=== PATIENT | male | born 1955 | race Caucasian/White ===

== ENCOUNTER 2024-03-06 09:52 | Inpatient (IN) | payer MEDICARE, SELFPAY ==
[2024-03-06] VITALS (9 sets, daily range): BP systolic 100–130; BP diastolic 48–64; PULSE 66–79; RESP 14–18; TEMP 36.3–37; O2SAT 97–100; BMI 20.6; BMI 20.2
--- NOTE | 2024-03-06 10:19 | EKG12_ITS ---
Test Reason : GENERAL Blood Pressure : / mmHG Vent. Rate : 068 BPM Atrial Rate : 068 BPM P-R Int : 160 ms QRS Dur : 102 ms QT Int : 416 ms P-R-T Axes : -15 029 025 degrees QTc Int : 442 ms Normal sinus rhythm Minimal voltage criteria for LVH, may be normal variant ( Sokolow-Parikh ) Nonspecific T wave abnormality Abnormal ECG Confirmed by ROMINA KIRK, KRISTIN ([id number]), video news editor GINNA OILVO ([id number]) on 03/08/2024 8:28:18 AM Referred By: Confirmed By:KRISTIN VANEGAS MD
--- NOTE | 2024-03-06 10:41 | EDS_ITS ---
HPI History of Present Illness Chief Complaint: Wound Narrative Narrative: Patient is a 68-year-old male with a past medical history of chronic left toe wound follows with Dr. Anderson who presents to the emergency department with a chief complaint of needing further evaluation management. According to patient's family at bedside they noted that they just recently saw Dr. Anderson in the office and was told to come to the emergency department on Thursday and contact him. They did note that he is on 2 antibiotics doxycycline and they believe cefdinir however cannot exactly remember the name of the second antibiotic. Patient denies any fevers or any other symptoms. They note that he is supposed to have toe removal coming up in the near future. PFSH PFS Home Medications ?Medication ?Instructions ?Recorded ?Last Taken ?Type amlodipine 10 mg tablet 10 mg PO DAILY 03/02/24 03/06/24 History atorvastatin 40 mg tablet 40 mg PO DAILY 03/02/24 03/06/24 History carvedilol 12.5 mg tablet 12.5 mg PO BID 03/02/24 Unknown History cefdinir 300 mg capsule 300 mg PO BID 03/02/24 Unknown History citalopram 10 mg tablet 10 mg PO DAILY 03/02/24 Unknown History clopidogrel 75 mg tablet 75 mg PO DAILY 03/02/24 Unknown History doxycycline hyclate 100 mg tablet 100 mg PO BID 03/02/24 Unknown History ezetimibe 10 mg tablet 10 mg PO DAILY 03/02/24 Unknown History folic acid 1 mg tablet 1 mg PO DAILY 03/02/24 Unknown History hydrochlorothiazide 25 mg tablet 25 mg PO DAILY 03/02/24 Unknown History hydrocodone-acetaminophen 5-325mg 1 tab PO Q12H PRN pain 03/02/24 Unknown History 5mg-325mg sacubitril 24 mg-valsartan 26 mg 1 tab PO BID 03/02/24 Unknown History tablet (Entresto) aspirin 81 mg chewable tablet 1 tab PO DAILY 03/06/24 Unknown History Allergy/AdvReac Type Severity Reaction Status Date / Time No Known Allergies Allergy Verified 03/06/24 09:54 Social History Smoking Status: Light Smoker (<10/day) ROS ROS ED ROS Narrative Constitutional: Denies fevers, chills, headaches, [employer] committees Ears nose and throat: Denies change with double vision blurry vision Cardiovascular: Denies chest pain or palpitations Respiratory: Denies any coughing wheezing shortness of breath Abdomen: Denies nausea vomit diarrhea Extremities: Complains of chronic toe wound as noted above Neurological: Denies any new numbness, weakness, tingling Skin: Complains of chronic wound as noted above EXAM Physical Exam Narrative Exam Narrative: General: Patient lying in bed resting comfortably did not appear to be in acute distress Head: Atraumatic, normocephalic Ears nose and throat: Pupils equal round reactive to light bilaterally, extraocular muscles intact bilaterally, no conjunctival injection noted Cardiovascular: Regular rate and rhythm no murmurs gallops rubs noted Respiratory: Clear to auscultation bilaterally Extremities: DP pulses +2/4 in the bilateral lower extremities, no pedal edema on exam Neurological: Patient following commands knew that he was at [facility] day is 2023 skin: Patient has chronic appearing left great toe wound no active drainage from the wound itself Const Vital Signs: 03/06/24 09:53 03/06/24 10:19 03/06/24 11:21 Temperature 97.3 F L 97.8 F Temperature Source Temporal Temporal Pulse Rate 79 66 Respiratory Rate 14 18 Blood Pressure 100/56 L 129/59 H Blood Pressure Mean 70 82 Pulse Ox 100 98 Oxygen Delivery Method Room Air Room Air Room Air 03/06/24 12:09 03/06/24 14:00 Temperature 97.8 F Temperature Source Temporal Pulse Rate 68 67 Respiratory Rate 18 18 Blood Pressure 120/49 L 125/56 H Blood Pressure Mean 72 79 Pulse Ox 98 98 Oxygen Delivery Method Room Air Room Air MDM MDM MDM Narrative Medical decision making narrative: Patient is a 68-year-old male who presents to the emergency department with chief complaint of evaluation for left great toe wound. Patient will have workup formed here and then Dr. Anderson will be contacted. Patient be given IV fluids for hydration. Patient CBC reviewed and showed no evidence of leukocytosis white blood count normal at 6.7, hemoglobin was 9.6, platelet count normal at 321. Patient's INR normal, PT normal at 13.6, sodium was 137, potassium was 3.3, creatinine was 0.76. Patient's lactic acid normal at 1.9, AST and ALT were 12 and 19 respectively. Patient's x-ray of his foot reviewed and showed soft tissue pro minence of the great toe no acute bone or joint abnormality. Patient's EKG reviewed showed sinus rhythm with a rate of 68 bpm most. Previous EKG and is largely unchanged. Did discuss case with on-call supervisor aircraft cleaning Dr. Carroll who is recommending giving multiple medical comorbidities discussion with the hospitalist which was done in December and they themselves and had further discussion. I did clarify with the patient and at bedside in regards to Dr. Braden. She states that he had a procedure done approximately [address] Braden and she states that she called their office and notified them of Dr. Artis's plan for amputation and they said that they were okay with this plan according to the at bedside. Then discussed the case with Dr. Carroll again states that he will accept patient for admission. He is requesting deep wound culture with MRSA be added on which was done. Patient was given vancomycin and Rocephin. Patient was notified that he will be admitted to the hospital for evaluation management he is agreeable to plan all question concerns answered. Lab Data Labs: Laboratory Results - last 24 hr 03/06/24 10:35 WBC 6.7 RBC 3.64 L Hgb 9.6 L Hct 30.4 L MCV 83.5 MCH 26.4 L MCHC 31.6 L RDW Std Deviation 54.3 H RDW Coeff of Judie 17.9 H Plt Count 321 MPV 9.2 Immature Gran % (Auto) 0.300 Neut % (Auto) 63.9 Lymph % (Auto) 22.5 [place] % (Auto) 8.8 Eos % (Auto) 4.2 Baso % (Auto) 0.3 Absolute Neuts (auto) 4.3 Absolute Lymphs (auto) 1.50 Nucleated RBC % 0 PT 13.6 INR 1.0 APTT 27.0 Sodium 137 Potassium 3.3 L Chloride 103 Carbon Dioxide 28.0 Anion Gap 6 BUN 13 Creatinine 0.76 Est GFR (MDRD) Af Amer 131 Est GFR (MDRD) Non-Af 108 BUN/Creatinine Ratio 17.0 Glucose 118 H Lactic Acid 1.9 Calcium 9.3 Total Bilirubin 0.30 AST 12 L ALT 19 Alkaline Phosphatase 94 Total Protein 6.9 Albumin 3.3 Globulin 3.6 Albumin/Globulin Ratio 0.9 Radiography Diagnostic Testing: Clinical Impression(s) from Imaging Studies Foot X-Ray 03/06/24 11:00 IMPRESSION: Soft tissue prominence of the great toe. No acute bone or joint abnormality. Electronically Signed: Niall Campuzano MD at 11:28 EDT , Discharge Plan Triage Chief Complaint: Wound ED Provider: Jose Johnson Dx/Rx/DC Orders Clinical Impression: Infection of great toe Prescriptions: No Action atorvastatin 40 mg tablet 40 mg PO DAILY carvedilol 12.5 mg tablet 12.5 mg PO BID citalopram 10 mg tablet 10 mg PO DAILY hydrocodone-acetaminophen 5-325 mg tablet 1 tab PO Q12H PRN (Reason: pain) clopidogrel 75 mg tablet 75 mg PO DAILY amlodipine 10 mg tablet 10 mg PO DAILY folic acid 1 mg tablet 1 mg PO DAILY hydrochlorothiazide 25 mg tablet 25 mg PO DAILY cefdinir 300 mg capsule 300 mg PO BID doxycycline hyclate 100 mg tablet 100 mg PO BID ezetimibe 10 mg tablet 10 mg PO DAILY Entresto 24-26 mg tablet 1 tab PO BID aspirin 81 mg tablet,chewable 1 tab PO DAILY Primary Care Provider: Bridgette Gomes NP Referrals: Bridgette Gomes NP, PHARMACY PICKING TECH-C [Primary Care Provider] - Print Language: Micronesian Disposition Disposition: Acute Care Hospital
[2024-03-06] MEDS: 0.9% Normal Saline (1000mL) 1,000 ML 999 ML IV (10:45)
[2024-03-06 10:46] LABS: Absolute Neutrophil Count 4.3 X10^3/uL (2.0-7.7); Basophil# 0.02 X10^3/uL; Basophil% 0.3 % (0-1); Eosinophil# 0.28 X10^3/uL; Eosinophils% 4.2 % (0-5); Hematocrit 30.4 % (40-54); Hemoglobin 9.6 g/dL (13.0-16.5); Lymphocyte % 22.5 % (19-41); Mean Corp Hgb Conc 31.6 g/dL (32-36); Mean Corpuscular Hgb 26.4 pg (27.0-32.0); Mean Corpuscular Volume 83.5 fL (80-94); Mean Platelet Vol. 9.2 fl (6.2-12.0); Monocyte# 0.59 X10^3/uL; Monocyte% 8.8 % (0-10); NRBC Flagged by Analyzer 0 % (0-5); Neutrophil # 4.27 X10^3/uL (2.7-7.7); Neutrophil % 63.9 % (47-70); Platelet Count 321 K/mm3 (150-450); RBC Distribution Width CV 17.9 % (11.6-14.6); RBC Distribution Width SD 54.3 fl (35.1-43.9); Red Blood Count 3.64 M/mm3 (4.6-6.2); White Blood Count 6.7 K/mm3 (4.4-11.0)
[2024-03-06 10:58] LABS: Prothrombin Time (Protime)PT. 13.6 SECONDS (11.7-14.9)
--- NOTE | 2024-03-06 11:00 | RAD_ITS ---
EXAM: XR LEFT FOOT COMPLETE, 3 OR MORE VIEWS CLINICAL INDICATION: great toe wound TECHNIQUE: Frontal, lateral and oblique views of the left foot. COMPARISON: No relevant prior studies available. FINDINGS: BONES/JOINTS: No acute fracture or subluxation. Mild narrowing of the interphalangeal joint of the great toe. SOFT TISSUES: Soft tissue prominence of the great toe. No soft tissue gas. No radiopaque foreign body. RAD/Foot min 3 Views IMPRESSION: Soft tissue prominence of the great toe. No acute bone or joint abnormality. Electronically Signed: Niall Campuzano MD at 11:28 EDT ,
[2024-03-06 11:01] LABS: ALB/GLOB Ratio 0.9 RATIO (0.9-2.4); AST(SGOT) 12 U/L (15-37); Alanine Aminotransfer ALT/SGPT 19 U/L (16-61); Albumin, Serum 3.3 g/dL (3.2-5.0); Alkaline Phosphatase 94 U/L (45-117); Anion Gap 6 (5-15); BUN 13 mg/dL (7-18); Calcium,Total 9.3 mg/dL (8.5-10.1); Chloride 103 mmol/L (98-107); Creatinine, Serum 0.76 mg/dL (0.70-1.30); EST Glomerular Filtration Rate 108 mL/min (>60); Est Glom Filt Rate - Afr Amer 131 mL/min (>60); Globulin 3.6 g/dL (2.2-4.2); Glucose 118 mg/dL (74-106); Potassium 3.3 mmol/L (3.5-5.1); Protein, Total 6.9 g/dL (6.4-8.2); Sodium Level 137 mmol/L (136-145)
[2024-03-06 11:17] LABS: Lactic Acid 1.9 mmol/L (0.4-1.9)
[2024-03-06] MEDS: Ceftriaxone 1 GM/50 ML BAG IV (14:43)
[2024-03-06 14:51] LABS: CRP 7.88 mg/L (0.0-3.0)
[2024-03-06 15:11] LABS: Erythrocyte Sedimentation Rate 15 mm/hr (0-20)
--- NOTE | 2024-03-06 15:30 | PCM.PN.HOSP ---
Reason for Visit Reason for Visit: Left foot wound Subjective Subjective Mr. 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 Anderson. He most recently saw Dr. Anderson on 03/02/2024 for a full-thickness ulceration of the left great toe and left leg. He had recent vascular intervention by Dr. Braden (vascular surgeon) in [place] who performed intervention of the left lower extremity and unfortunately was found to have a wound dehiscence to the proximal calf area of the left lower extremity. He had been on oral antibiotics with cephalexin and doxycycline and has been doing dressing changes at home but indicated he had persistent malodor that has been progressively getting worse related to the wound. He was seen at the wound care center by Dr. Anderson on the at which time debridement was performed. Cultures were taken at that time and sent to microbiology for identification and sensitivity and he was maintained on his oral antibiotics that he been started on previously. At that time, Dr. Anderson, had a long discussion with the patient with regards to the severity infection and they recommended admission to the hospital for optimization of the left lower extremity. The patient was going to reach out to Dr. Braden for any recommendations to see if Dr. Braden would prefer him to be seen at [place] or admission to the [place] emergency department. The patient subsequently presented to the emergency department [facility] for admission. Dr. Carroll is on-call for podiatry and we discussed the case and we have been consulted for medical management. Surgical intervention is likely. Patient admits to vascular intervention on right leg 2 months ago and his left leg about 5 weeks ago. Had wound dehiscence but no further vascular intervention required at this time per discussion with patient. He also admits to having an aortic valve replacement with a bioprosthetic valve done at [place] as well within the last year and he also suffered from a stroke last March which has resulted in some left visual field deficits. At this time he is denying any significant pain. We are trying to get records from [facility] with regards to his previous medical history and surgical history. Patient does admit to some intermittent smoking still but does not smoke on a daily basis. He denies any alcohol or other substance use. Objective Data Objective Data Vital Signs: Vital Signs Temp Pulse Resp BP Pulse Ox O2 Del Method 97.9 F 75 16 120/50 L 97 Room Air 03/06/24 14:49 03/06/24 14:49 03/06/24 14:49 03/06/24 14:49 03/06/24 14:49 03/06/24 14:00 Oxygen Delivery Method Room Air Weight: 71 kg Body Mass Index (BMI) 20.6 Intake & Output: Intake and Output for Last 24 Hours 03/04/24 03/05/24 03/06/24 23:59 23:59 23:59 Intake Total 1000 / 1000 Balance 1000 / 1000 Lab / Micro Data 03/06/24 10:35 03/06/24 10:35 Labs: Laboratory Results - last 24 hr 03/06/24 10:35: WBC 6.7, RBC 3.64 L, Hgb 9.6 L, Hct 30.4 L, MCV 83.5, MCH 26.4 L, MCHC 31.6 L, RDW Std Deviation 54.3 H, RDW Coeff of Judie 17.9 H, Plt Count 321, MPV 9.2, Immature Gran % (Auto) 0.300, Neut % (Auto) 63.9, Lymph % (Auto) 22.5, Lincoln % (Auto) 8.8, Eos % (Auto) 4.2, Baso % (Auto) 0.3, Absolute Neuts (auto) 4.3, Absolute Lymphs (auto) 1.50, Nucleated RBC % 0, ESR 15, PT 13.6, INR 1.0, APTT 27.0, Sodium 137, Potassium 3.3 L, Chloride 103, Carbon Dioxide 28.0, Anion Gap 6, BUN 13, Creatinine 0.76, Est GFR (MDRD) Af Amer 131, Est GFR (MDRD) Non-Af 108, BUN/Creatinine Ratio 17.0, Glucose 118 H, Lactic Acid 1.9, Calcium 9.3, Total Bilirubin 0.30, AST 12 L, ALT 19, Alkaline Phosphatase 94, C-React Prot Ext Range 7.88 H, Total Protein 6.9, Albumin 3.3, Globulin 3.6, Albumin/Globulin Ratio 0.9 Radiography Diagnostic Testing: Radiology Impression Foot X-Ray 03/06/24 11:00 IMPRESSION: Soft tissue prominence of the great toe. No acute bone or joint abnormality. Electronically Signed: Niall Campuzano MD at 11:28 EDT Reading Location ID and State: [facility] / [place] Tel , Service support , Physical Exam Const alert, oriented x3 and no apparent distress Constitutional Narrative: Upper middle-aged, white male, sitting up in bed watching television, nursing at bedside, patient appears comfortable, does not appear toxic, appears older than stated age HEENT head/scalp atraumatic and moist oral mucous membranes HEENT Narrative: Upper edentulous, lower dentition is poor, Mallampati is 2, no thrush Head and Scalp: normocephalic Eyes PERRL and EOMs intact bilaterally Eyes Narrative: No scleral icterus, conjunctiva are mildly pale bilaterally Neck no lymphadenopathy, supple and no JVD Neck Narrative: Incisions from previous carotid endarterectomy [id number], trachea midline, no thyroid enlargement Resp normal respiratory effort, no retractions, no use of accessory muscles and No clear to auscultation bilaterally Resp Narrative: Diffusely diminished with few scattered end expiratory wheezes Auscultation: wheezes; Negative for rales or rhonchi Cardio regular rate, regular rhythm, S1 normal heart sound, S2 normal heart sound, no rub, no gallops and no clicks; Negative for no murmurs Cardio Narrative: 3 out of 6 systolic murmur loudest at left upper sternal border GI normal to inspection, nondistended, normoactive bowel sounds, soft to palpation and non-tender Extremity Extremity Narrative: Right lower extremity previous amputation noted, left lower extremity with dressing in place was recently placed in the emergency department prior to admission Neuro oriented x3, moves all extremities, no focal motor deficits and no sensory deficits noted Speech: speech normal Psych affect normal Psych Narrative: Pleasant, eye contact is good, patient interacts appropriately Assessment & Plan Assessment/Plan (1) Infection of great toe: (2) Acute osteomyelitis of left foot: (3) Other specified peripheral vascular diseases: (4) Hypokalemia: PLAN: Plan Left foot infection with concern for osteomyelitis -X-ray shows soft tissue prominence of the great toe -Cultures from 03/02/2024 showed Pseudomonas and Enterococcus faecalis -Given these culture findings would use Zosyn and vancomycin for now -ESR is only 15 and CRP was only 7.8 -Management per primary service -Wound care consultation -Infectious disease consultation -EKG done in the emergency department that shows no acute abnormalities with request for previous EKG pending as well as previous cardiac evaluation -I would imagine the patient has had cardiac catheterization with recent valve replacement -Records have been requested [place] -Chest x-ray without any acute findings Hypokalemia -Potassium of 3.3 at the time of admission -40 mEq p.o. potassium given -Repeat in a.m. -Check a.m. magnesium level Peripheral vascular disease -Follows with Dr. Braden in [place] -Recent left lower extremity intervention with no ongoing plans for any further intervention -Previous right lower extremity intervention -Continue aspirin and Plavix--> okay with podiatry -Recommend ongoing outpatient follow-up with Dr. Braden after discharge Valvular replacement -Patient thinks it is his aortic valve that was replaced with bioprosthetic valve -Records have been requested -Unsure if patient has any coronary disease however he does appear to be a vasculopath so I would doubt that he may have some coronary disease -Most likely had cardiac catheterization prior to his valve replacement Hypertension -Continue home amlodipine -Continue home carvedilol -Continue home hydrochlorothiazide -Continue home Entresto Suspect history of heart failure -Based on medications I do suspect he has a history of heart failure -Awaiting data from [place] Hyperlipidemia -Continue home Zetia -Continue home statin Suspected COPD -No formal diagnosis documented and patient unaware of diagnosis however patient has long history of tobacco abuse and intermittent wheezing on exam -As needed albuterol is available -Would recommend outpatient follow-up with pulmonary medicine or outpatient PFTs after discharge Tobacco abuse -Patient admits that he still intermittently smokes however not on a daily basis -Denies any need for any nicotine replacement therapy at this time DVT prophylaxis -Subcu Lovenox 40 daily CODE STATUS -Full code as verified at the time of evaluation Charges/Coding Visit Charges Inpatient E&M: 33243 Subs Hosp L2
[2024-03-06] MEDS: 0.9% Normal Saline (250mL Bag) 250 ML 15 ML IV ×2 (15:50→16:15)
[2024-03-06] MEDS: Piperacil/Tazobactam 3.375 GM in 0.9% Normal Saline (50mL MB+) 50 ML IV ×2 (15:59→22:03)
[2024-03-06] MEDS: 0.9% Saline Lock 10 ML Syringe IV ×3 (16:00→22:01)
[2024-03-06] MEDS: Vancomycin HCl 1,750 MG in 0.9% Normal Saline (500mL Bag) 500 ML 250 MG IV (16:15)
[2024-03-06] MEDS: Potassium Chloride Oral Tablet 20 MEQ 40 MEQ PO (16:40)
[2024-03-06] MEDS: Carvedilol 12.5 MG Tablet PO (16:41)
--- NOTE | 2024-03-06 16:44 | PCM.RX.CS ---
Consult Antibiotic Management Pharmacy has been consulted to manage selected antibiotic: Vancomycin Type of Intervention Type of Consult: New start Suspected Infection Suspected Infection: Osteomyelitis Labs Labs: Sodium 137 mmol/L (136-145) 03/06/24 10:35 Potassium 3.3 mmol/L (3.5-5.1) L 03/06/24 10:35 Chloride 103 mmol/L (98-107) 03/06/24 10:35 Carbon Dioxide 28.0 mmol/L (21.0-32.0) 03/06/24 10:35 Anion Gap 6 (5-15) 03/06/24 10:35 BUN 13 mg/dL (7-18) 03/06/24 10:35 Creatinine 0.76 mg/dL (0.70-1.30) 03/06/24 10:35 Est GFR (MDRD) Af Amer 131 mL/min (>60) 03/06/24 10:35 Est GFR (MDRD) Non-Af 108 mL/min (>60) 03/06/24 10:35 BUN/Creatinine Ratio 17.0 RATIO (-20) 03/06/24 10:35 Glucose 118 mg/dL (74-106) H 03/06/24 10:35 Pharmacy Plan for Drug Dosing Pharmacy Plan for Drug Dosing: NEW START IV VANCOMYCIN Consulting Physician: Carly Indication: Osteomyelitis Goal Trough: 15-20 mg/dL SrCr: 0.76 mg/dL (03/06) CrCl: 93.9 mL/min Comments: ER dose of 1000mg ordered initially. Loading dose ordered for admission. ER dose had not been given so change to loading dose of 1750mg given 03/06 @ 1615 Vancomycin Dose: Will start 1250mg Q12 (03/07 @ 0400) and get a level prior to the 4th dose per policy. Pending Level: 03/08/24 @ 0330 Pharmacy Service will continue to monitor and adjust dosing as required.
[2024-03-06 18:29] LABS: Hemoglobin A1c 5.4 % (3.8-5.6)
--- NOTE | 2024-03-06 20:43 | PCM.HP.STD ---
HPI - General General Date of Admission: 03/06/24 Chief Complaint: Left foot wound and left leg wound, bone infection HPI Narrative LATRICE CLIFTON, is a 68 M who presents with chronic PAD with chronic left 1st toe wound and dehised left leg wound. Patient has bone exposed left 1st toe, says it is not healing and has been overall worsening, he also has revasc by Dr. Braden 5 weeks ago and leg incision opened up. He relates his and daughter have been packing it daily at home. He presented to the ER today. He was admitted for further management. [facility] Medical History (Updated 03/06/24 @ 20:[address] Greg Carroll, DP) Anemia Restless legs Vision loss of left eye Smoker Asthma Hypertension Stroke/cerebrovascular accident Home Medications ?Medication ?Instructions ?Recorded ?Last Taken ?Type amlodipine 10 mg tablet 10 mg PO DAILY blood pressure 03/02/24 03/06/24 08:00 History atorvastatin 40 mg tablet 40 mg PO DAILY 03/02/24 03/06/24 History carvedilol 12.5 mg tablet 12.5 mg PO BID blood pressure 03/02/24 03/06/24 08:00 History cefdinir 300 mg capsule 300 mg PO BID antibiotic 03/02/24 03/06/24 08:00 History citalopram 10 mg tablet 10 mg PO DAILY depression 03/02/24 03/06/24 08:00 History clopidogrel 75 mg tablet 75 mg PO DAILY blood thinner 03/02/24 03/06/24 08:00 History doxycycline hyclate 100 mg tablet 100 mg PO BID antibiotic 03/02/24 03/06/24 08:00 History ezetimibe 10 mg tablet 10 mg PO DAILY cholesterol 03/02/24 03/05/24 08:00 History folic acid 1 mg tablet 1 mg PO DAILY vitamin 03/02/24 03/06/24 08:00 History hydrochlorothiazide 25 mg tablet 25 mg PO DAILY blood pressure 03/02/24 03/05/24 08:00 History hydrocodone-acetaminophen 5-325mg 1 tab PO Q12H PRN pain 03/02/24 03/05/24 22:01 History 5mg-325mg sacubitril 24 mg-valsartan 26 mg 1 tab PO BID blood pressure 03/02/24 03/06/24 08:00 History tablet (Entresto) aspirin 81 mg chewable tablet 1 tab PO DAILY blood thinner 03/06/24 03/06/24 08:00 History Allergy/AdvReac Type Severity Reaction Status Date / Time No Known Allergies Allergy Verified 03/06/24 09:54 Surgical History (Updated 03/06/24 @ 17:[address] Radha Powell, DO) H/O carotid endarterectomy Status post cardiac surgery Social History Smoking Status: Light Smoker (<10/day) Vital Signs Vital Signs Vital Signs: 03/06/24 09:53 03/06/24 10:19 03/06/24 11:21 Temperature 97.3 F L 97.8 F Temperature Source Temporal Temporal Pulse Rate 79 66 Respiratory Rate 14 18 Respiratory Effort Respiratory Depth Respiratory Pattern Blood Pressure 100/56 L 129/59 H Blood Pressure Mean 70 82 Blood Pressure Source Blood Pressure Position Blood Pressure Location Pulse Ox 100 98 Oxygen Delivery Method Room Air Room Air Room Air 03/06/24 12:09 03/06/24 14:00 03/06/24 14:49 Temperature 97.8 F 97.9 F Temperature Source Temporal Pulse Rate 68 67 75 Respiratory Rate 18 18 16 Respiratory Effort Respiratory Depth Respiratory Pattern Blood Pressure 120/49 L 125/56 H 120/50 L Blood Pressure Mean 72 79 73 Blood Pressure Source Blood Pressure Position Blood Pressure Location Pulse Ox 98 98 97 Oxygen Delivery Method Room Air Room Air 03/06/24 15:12 03/06/24 15:35 Temperature 98.2 F Temperature Source Oral Pulse Rate 70 70 Respiratory Rate 18 16 Respiratory Effort Normal Respiratory Depth Normal Respiratory Pattern Normal Blood Pressure 121/48 H Blood Pressure Mean 72 Blood Pressure Source Monitor Blood Pressure Position Semi-Fowlers Blood Pressure Location Left Arm Pulse Ox 99 99 Oxygen Delivery Method Room Air Room Air Weight Weight: 69.4 kg Body Mass Index (BMI) 20.2 Physical Exam Const alert, oriented x3 and no apparent distress Constitutional Narrative: Chronic ulcer dorsal left 1st toe down to exposed bone - bone is necrotic, it is dry and stable in appearance, left leg ulceration down to fascia and muscle with some nonviable and also some granular tissue - there is no cellulitis, no maloder, no crepitus, no fluctuance, no visible abscess. Chronic PAD, no evidence of acute ischemia bilateral foot. Right 4th toe is absent and healed. He relates to POP to ulcer sites c/w normal findings. No evidence of DVT bilateral. Results Lab / Micro Data 03/06/24 10:35 03/06/24 10:35 Labs: Laboratory Results - last 24 hr 03/06/24 10:35: WBC 6.7, RBC 3.64 L, Hgb 9.6 L, Hct 30.4 L, MCV 83.5, MCH 26.4 L, MCHC 31.6 L, RDW Std Deviation 54.3 H, RDW Coeff of Judie 17.9 H, Plt Count 321, MPV 9.2, Immature Gran % (Auto) 0.300, Neut % (Auto) 63.9, Lymph % (Auto) 22.5, Bartholomew % (Auto) 8.8, Eos % (Auto) 4.2, Baso % (Auto) 0.3, Absolute Neuts (auto) 4.3, Absolute Lymphs (auto) 1.50, Nucleated RBC % 0, ESR 15, PT 13.6, INR 1.0, APTT 27.0, Sodium 137, Potassium 3.3 L, Chloride 103, Carbon Dioxide 28.0, Anion Gap 6, BUN 13, Creatinine 0.76, Est GFR (MDRD) Af Amer 131, Est GFR (MDRD) Non-Af 108, BUN/Creatinine Ratio 17.0, Glucose 118 H, Hemoglobin A1c 5.4, Lactic Acid 1.9, Calcium 9.3, Total Bilirubin 0.30, AST 12 L, ALT 19, Alkaline Phosphatase 94, C-React Prot Ext Range 7.88 H, Total Protein 6.9, Albumin 3.3, Globulin 3.6, Albumin/Globulin Ratio 0.9 Imaging Radiology Impression Foot X-Ray 03/06/24 11:00 IMPRESSION: Soft tissue prominence of the great toe. No acute bone or joint abnormality. Electronically Signed: Niall Campuzano MD at 11:28 EDT , Assessment & Plan Assessment/Plan (1) Other specified peripheral vascular diseases: (2) Non-pressure chronic ulcer of other part of left lower leg with necrosis of muscle: (3) Chronic osteomyelitis of toe of left foot: (4) Non-pressure chronic ulcer of other part of left foot with necrosis of bone: PLAN: Plan Evaluation performed. Reviewed diagnostic data. Patient was admitted for further management. New culture obtained left 1st toe - patient on IV antibiotics Vanc and Zosyn. New left foot xrays and leg xrays ordered. 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 Hospital medicine consulted for patient's other medical problems.
--- NOTE | 2024-03-06 21:45 | RAD_ITS ---
EXAM: XR LEFT TIBIA AND FIBULA, 2 VIEWS CLINICAL INDICATION: wound dehiscense mid leg TECHNIQUE: Frontal and lateral views of the left tibia and fibula. COMPARISON: No relevant prior studies available. FINDINGS: BONES/JOINTS: There is mild degenerative narrowing of the medial compartment of the knee with surrounding osteophytes. Minimal posterior calcaneal spur is noted. No acute fracture. No subluxation. Normal alignment. No sclerotic or destructive changes observed. SOFT TISSUES: A gas-filled ulcer crater is seen in the skin and subcutaneous soft tissues, posterior and medial to the tibial midshaft, with this cutaneous defect measuring approximately 5 x 1.4 x 1.5 cm in diameter. Surgical clips and soft tissue swelling around this ulcer crater. No bubbles of soft tissue emphysema are identified. VASCULATURE: Vascular calcification is present. RAD/Tibia & Fibula 2 Views IMPRESSION: Ulcer-like defect within the soft tissues medial and posterior to the tibial midshaft. No findings of osteomyelitis are identified. Electronically Signed: Devonte Alexis MD at 0:31 EDT ,
[2024-03-06] MEDS: SACUBITRIL/VALSARTAN 24/26 MG TABLET 1 EACH PO (22:01)
[2024-03-07 04:25] VITALS: BP 119/60; PULSE 69; RESP 18; TEMP 36.7; O2SAT 97
[2024-03-07] MEDS: Vancomycin HCl 1,250 MG in 0.9% Normal Saline (250mL Bag) 250 ML 167 MG IV ×2 (04:31→16:08)
[2024-03-07] MEDS: 0.9% Saline Lock 10 ML Syringe IV (05:00)
[2024-03-07] MEDS: Piperacil/Tazobactam 3.375 GM in 0.9% Normal Saline (50mL MB+) 50 ML IV ×3 (05:00→21:14)
--- NOTE | 2024-03-07 05:55 | RAD_ITS ---
EXAM: XR CHEST, 1 VIEW CLINICAL INDICATION: Preop TECHNIQUE: Frontal view of the chest. COMPARISON: No relevant prior studies available. FINDINGS: LUNGS AND PLEURAL SPACES: Lungs are mildly hyperinflated. No consolidation or edema. No pneumothorax. No effusion. HEART: Normal heart size and pulmonary vasculature. Catheter placed aortic valve prosthesis is noted. MEDIASTINUM: Thoracic aorta is minimally elongated and calcific. BONES/JOINTS: Unremarkable. No acute fracture. SOFT TISSUES: Surgical clips noted within the right lower neck. Subclavian axillary atherosclerotic calcification. RAD/Chest 1 View (Portable) IMPRESSION: Mild pulmonary hyperinflation. No acute cardiopulmonary disease process identified. Electronically Signed: Devonte Alexis MD at 6:48 EDT ,
--- NOTE | 2024-03-07 07:33 | PCM.PN.HOSP ---
Reason for Visit Reason for Visit: Diagnoses Hypokalemia (03/06/24) Other specified peripheral vascular diseases (03/06/24) Local infection of the skin and subcutaneous tissue, unspecified (03/06/24) Non-pressure chronic ulcer of other part of left foot with necrosis of bone (03/06/24) Non-pressure chronic ulcer of other part of left lower leg with necrosis of muscle (03/06/24) Other acute osteomyelitis, left ankle and foot (03/06/24) Other chronic osteomyelitis, left ankle and foot (03/06/24) Subjective Subjective Patient is a 68-year-old gentleman with history of chronic left toe wound who presented to the emergency department with worsening symptoms Objective Data Objective Data Vital Signs: Vital Signs Temp Pulse Resp BP Pulse Ox O2 Del Method 98.1 F 69 18 119/60 97 Room Air 03/07/24 04:25 03/07/24 04:25 03/07/24 04:25 03/07/24 04:25 03/07/24 04:25 03/07/24 04:25 Oxygen Delivery Method Room Air Weight: 69.4 kg Body Mass Index (BMI) 20.2 Intake & Output: Intake and Output for Last 24 Hours 03/05/24 03/06/24 03/07/24 23:59 23:59 23:59 Intake Total 2935 / 2935 725 / 725 Balance 2935 / 2935 725 / 725 Lab / Micro Data 03/06/24 10:35 03/06/24 10:35 Labs: Laboratory Results - last 24 hr 03/06/24 10:35: WBC 6.7, RBC 3.64 L, Hgb 9.6 L, Hct 30.4 L, MCV 83.5, MCH 26.4 L, MCHC 31.6 L, RDW Std Deviation 54.3 H, RDW Coeff of Judie 17.9 H, Plt Count 321, MPV 9.2, Immature Gran % (Auto) 0.300, Neut % (Auto) 63.9, Lymph % (Auto) 22.5, Cochran % (Auto) 8.8, Eos % (Auto) 4.2, Baso % (Auto) 0.3, Absolute Neuts (auto) 4.3, Absolute Lymphs (auto) 1.50, Nucleated RBC % 0, ESR 15, PT 13.6, INR 1.0, APTT 27.0, Sodium 137, Potassium 3.3 L, Chloride 103, Carbon Dioxide 28.0, Anion Gap 6, BUN 13, Creatinine 0.76, Est GFR (MDRD) Af Amer 131, Est GFR (MDRD) Non-Af 108, BUN/Creatinine Ratio 17.0, Glucose 118 H, Hemoglobin A1c 5.4, Lactic Acid 1.9, Calcium 9.3, Total Bilirubin 0.30, AST 12 L, ALT 19, Alkaline Phosphatase 94, C-React Prot Ext Range 7.88 H, Total Protein 6.9, Albumin 3.3, Globulin 3.6, Albumin/Globulin Ratio 0.9 Micro: Microbiology 03/06/24 19:00 Wound - Leg, Left Skin and Soft Tissue MRSA/MSSA (PCR - Final Radiography Diagnostic Testing: Radiology Impression Foot X-Ray 03/06/24 11:00 IMPRESSION: Soft tissue prominence of the great toe. No acute bone or joint abnormality. Electronically Signed: Niall Campuzano MD at 11:28 EDT , Tibia/Fibula X-Ray 03/06/24 21:45 IMPRESSION: Ulcer-like defect within the soft tissues medial and posterior to the tibial midshaft. No findings of osteomyelitis are identified. Electronically Signed: Devonte Alexis MD at 0:31 EDT , Chest X-Ray 03/07/24 05:55 IMPRESSION: Mild pulmonary hyperinflation. No acute cardiopulmonary disease process identified. Electronically Signed: Devonte Alexis MD at 6:48 EDT , Physical Exam Narrative GENERAL: cooperative HEENT: Atraumatic; normocephalic EYES; Anicteric, Normal Conjunctiva NECK; supple, normal thyroid, RESPIRATORY: Diminished to auscultation CARDIOVASCULAR: Regular S1 S2, GI: soft, normoactive bowel sounds, : No Renal angle tenderness; EXTREMITIES: Necrotic wound on the plantar surface of the left big toe, MUSCULOSKELETAL: no muscle wasting NEURO: Awake; no lateralizing signs. SKIN: No Rash PSYCH; Flat affect Assessment & Plan Assessment/Plan (1) Infection of great toe: (2) Acute osteomyelitis of left foot: (3) Other specified peripheral vascular diseases: (4) Hypokalemia: PLAN: Plan Patient is a 68-year-old gentleman with history of chronic left toe wound who presented to the emergency department with worsening symptoms 1. Left foot infection with concern for osteomyelitis -X-ray shows soft tissue prominence of the great toe,-Cultures from 03/02/2024 showed Pseudomonas and Enterococcus faecalis patient subsequently started on Zosyn and vancomycin based on sensitivities with consultation placed to podiatry 2. Hypokalemia ? Corrected per protocol repeat labs ordered for monitoring 3. Peripheral vascular disease -Follows with Dr. Braden in [place]; Recent left lower extremity intervention with no ongoing plans for any further intervention patient is on dual antiplatelet therapy 4. Valvular heart disease ? With history of bioprosthetic aortic valve replacement 5. Hypertension - Blood pressure controlled, home medications continued with dose adjustment as needed 6. Dyslipidemia -Patient is on statin therapy, continued at home dose 7. Tobacco dependence - Counseled on cessation, offered nicotine patch for tobacco cravings 8. Anemia - Secondary to chronic disorder monitoring H&H and transfuse if patient becomes symptomatic or hemoglobin falls below 7 9. Depression ? Patient is on citalopram 10. Chronic congestive heart failure ? EF unknown patient is on Entresto echo ordered for baseline assessment 11. DVT prophylaxis - On enoxaparin Time spent in the patient's overall evaluation,decision-making process, review of diagnostic data, adjustment of management, discussion with other providers, nursing nursing and ancillary staff involved in patient's care documentation, 50 Minutes Charges/Coding Visit Charges Inpatient E&M: 14022 Subs Hosp L3
[2024-03-07 08:25] VITALS: BP 119/52; PULSE 72; RESP 16; TEMP 36.8; O2SAT 98
[2024-03-07] MEDS: Citalopram 10 MG Tablet PO (08:28)
[2024-03-07] MEDS: Clopidogrel Bisulfate 75 MG Tablet PO (08:28)
[2024-03-07] MEDS: hydroCHLOROthiazide 25 MG Tablet PO (08:28)
[2024-03-07] MEDS: SACUBITRIL/VALSARTAN 24/26 MG TABLET 1 EACH PO ×2 (08:28→21:14)
[2024-03-07] MEDS: Carvedilol 12.5 MG Tablet PO ×2 (08:28→16:42)
[2024-03-07] MEDS: amLODIPine 10 MG Tablet PO (08:28)
[2024-03-07] MEDS: Ezetimibe 10 MG Tablet PO (08:29)
[2024-03-07] MEDS: Folic Acid 1 MG Tablet PO (08:29)
[2024-03-07] MEDS: Aspirin 81 MG TAB.CHEW PO (08:29)
--- NOTE | 2024-03-07 08:33 | ECHOCS_ITS ---
Reason For Study: CHF Procedure This was a 2D Doppler, Color Flow transthoracic echocardiogram. Technically difficult study. Patient was uncooperative, would not stay in proper positioning and would not valsalva. Contrast injection was performed. Exam performed portable in patient room. Left Ventricle Normal size and thickness. Left ventricular systolic function is normal. The left ventricular ejection fraction is 65 %. Stage 1 diastolic dysfunction. No regional wall motion abnormalities noted. Right Ventricle Normal RV size. Normal systolic function. Atria Normal left atrium. Normal right atrium. Mitral Valve Normal mitral valve. Tricuspid Valve Normal tricuspid valve. Aortic Valve Bioprosthetic aortic valve. Stable appearing bioprosthetic aortic valve apparatus. Pulmonic Valve Normal pulmonic valve. Great Vessels Normal aortic root. Pericardium/Pleural No pericardial effusion. Medication Diluted definity 1ml given slow IV push to enhance endocardial definition. MMode/2D Measurements & Calculations LVIDd: 4.1 cm IVSd: 1.2 cm LVOT diam: 2.0 cm LVIDs: 2.8 cm LVPWd: 1.1 cm RVDd: 3.4 cm FS: 31.6 % LVOT area: 3.2 cm2 LA dimension: 3.7 cm LAV(MOD-sp4): 48.5 ml LVAd ap4: 40.4 cm2 LVLd ap4: 9.6 cm EDV(MOD-sp4): 139.1 ml EDV(sp4-el): 143.7 ml LVAs ap4: 18.4 cm2 LVLs ap4: 8.9 cm ESV(MOD-sp4): 34.7 ml ESV(sp4-el): 32.5 ml EF(MOD-sp4): 75.1 % EF(sp4-el): 77.4 % SV(MOD-sp4): 104.5 ml SV(sp4-el): 111.2 ml LA A4 area: 17.8 cm2 RA A4 area: 15.0 cm2 Time Measurements MV dec time: 0.33 sec Doppler Measurements & Calculations MV E max kyaw: 89.1 cm/sec Lat Peak E' Kyaw: 14.2 cm/sec Med Peak E' Kyaw: 8.1 cm/sec MV A max kyaw: 101.0 cm/sec E/E' lat: 6.3 E/E' med: 11.0 MV E/A: 0.88 MV V2 max: 106.6 cm/sec MV P1/2t max kyaw: 104.6 cm/sec Ao V2 max: 146.4 cm/sec MV max P.5 mmHg MV P1/2t: 108.4 msec Ao max P.6 mmHg MV V2 mean: 64.9 cm/sec MV dec slope: 282.7 cm/sec2 Ao V2 mean: 92.7 cm/sec MV mean P.0 mmHg MVA(P1/2t): 2.0 cm2 Ao mean P.1 mmHg MV V2 VTI: 34.5 cm Ao V2 VTI: 25.6 cm MVA(VTI): 2.8 cm2 AV (velocity ratio): 1.2 AYAH(I,D): 3.7 cm2 AYAH(V,D): 3.2 cm2 LV V1 max: 147.1 cm/sec SV(LVOT): 95.1 ml PA V2 max: 87.2 cm/sec LV V1 max P.7 mmHg PA V2 mean: 55.1 cm/sec LV V1 mean P.1 mmHg LV V1 mean: 94.2 cm/sec LV V1 VTI: 30.1 cm ECHO/Echo Complete W/ Contrast Interpretation Summary The left ventricular ejection fraction is 65 %. Left ventricular systolic function is normal. Stage 1 diastolic dysfunction. Stable appearing bioprosthetic aortic valve apparatus. Contrast injection was performed. Ordering Physician: Eron Willis Performed By: Rick Bourgeois RCS
--- NOTE | 2024-03-07 09:31 | PCM.PROGNOTE ---
Subjective Subjective Patient denies constitutional symptoms. Patient denies pain in the left foot or leg. Patient denies any changes of night. No new complaints. Objective Data Objective Data Vital Signs: Vital Signs Temp Pulse Resp BP Pulse Ox O2 Del Method 98.2 F 72 16 119/52 L 98 Room Air 03/07/24 08:25 03/07/24 08:25 03/07/24 08:25 03/07/24 08:25 03/07/24 08:25 03/07/24 08:37 Oxygen Delivery Method Room Air Weight: 69.4 kg Body Mass Index (BMI) 20.2 Intake & Output: Intake and Output for Last 24 Hours 03/05/24 03/06/24 03/07/24 23:59 23:59 23:59 Intake Total 2935 / 2935 725 / 725 Balance 2935 / 2935 725 / 725 Lab / Micro Data 03/06/24 10:35 03/06/24 10:35 Labs: Laboratory Results - last 24 hr 03/06/24 10:35: WBC 6.7, RBC 3.64 L, Hgb 9.6 L, Hct 30.4 L, MCV 83.5, MCH 26.4 L, MCHC 31.6 L, RDW Std Deviation 54.3 H, RDW Coeff of Judie 17.9 H, Plt Count 321, MPV 9.2, Immature Gran % (Auto) 0.300, Neut % (Auto) 63.9, Lymph % (Auto) 22.5, [place] % (Auto) 8.8, Eos % (Auto) 4.2, Baso % (Auto) 0.3, Absolute Neuts (auto) 4.3, Absolute Lymphs (auto) 1.50, Nucleated RBC % 0, ESR 15, PT 13.6, INR 1.0, APTT 27.0, Sodium 137, Potassium 3.3 L, Chloride 103, Carbon Dioxide 28.0, Anion Gap 6, BUN 13, Creatinine 0.76, Est GFR (MDRD) Af Amer 131, Est GFR (MDRD) Non-Af 108, BUN/Creatinine Ratio 17.0, Glucose 118 H, Hemoglobin A1c 5.4, Lactic Acid 1.9, Calcium 9.3, Total Bilirubin 0.30, AST 12 L, ALT 19, Alkaline Phosphatase 94, C-React Prot Ext Range 7.88 H, Total Protein 6.9, Albumin 3.3, Globulin 3.6, Albumin/Globulin Ratio 0.9 Micro: Microbiology 03/06/24 19:00 Wound - Leg, Left Skin and Soft Tissue MRSA/MSSA (PCR - Final Radiography Diagnostic Testing: Radiology Impression Foot X-Ray 03/06/24 11:00 IMPRESSION: Soft tissue prominence of the great toe. No acute bone or joint abnormality. Electronically Signed: Niall Campuzano MD at 11:28 EDT , Tibia/Fibula X-Ray 03/06/24 21:45 IMPRESSION: Ulcer-like defect within the soft tissues medial and posterior to the tibial midshaft. No findings of osteomyelitis are identified. Electronically Signed: Devonte Alexis MD at 0:31 EDT , Chest X-Ray 03/07/24 05:55 IMPRESSION: Mild pulmonary hyperinflation. No acute cardiopulmonary disease process identified. Electronically Signed: Devonte Alexis MD at 6:48 EDT , Physical Exam Narrative Chronic ulcer dorsal left 1st toe down to exposed bone - bone is necrotic, it is dry and stable in appearance, left leg ulceration down to fascia and muscle with some nonviable and also some granular tissue - there is no cellulitis, no maloder, no crepitus, no fluctuance, no visible abscess. Chronic PAD, no evidence of acute ischemia bilateral foot. Right 4th toe is absent and healed. He relates to POP to ulcer sites c/w normal findings. No evidence of DVT bilateral. Const alert and oriented x3 Assessment & Plan Assessment/Plan (1) Non-pressure chronic ulcer of other part of left foot with necrosis of bone: PLAN: Exam performed Vital signs stable Left lower extremity wounds redressed Arterial studies ordered Will plan for delayed primary closure left leg wound and partial left foot amputation partial first ray amputation on 03/08/2024 Will continue to follow closely (2) Chronic osteomyelitis of toe of left foot: (3) Other specified peripheral vascular diseases: (4) Non-pressure chronic ulcer of other part of left lower leg with necrosis of muscle:
--- NOTE | 2024-03-07 09:32 | ART_ITS ---
Reason For Study: Lt Foot Ulcer Procedure A bilateral lower extremity continuous wave Doppler with analog waveform analysis,segmental pressures,and ankle brachial indexes without exercise. Abbreviated exam per dr order. Doppler waveforms only. Left Segmental Pressures The left posterior tibial artery waveforms are monophasic. Right Segmental Pressures The right posterior tibial artery waveforms are monophasic. The right dorsalis pedis waveforms are monophasic. VL/Lower Ext Art Exam w/o Exercis Interpretation Summary Right JUANITO not obtained. Doppler waveforms of the right ankle moderately diminis hed at rest. Left JUANITO not obtained. Doppler waveforms of the left ankle severely diminished at rest. Ordering Physician: Jonathan Garcia Referring Physician: Oneyda Gomes Performed By: Tim Rodrigez RVT
--- NOTE | 2024-03-07 09:45 | WOUNDNOTE ---
wound photo: left medial lower leg
--- NOTE | 2024-03-07 09:47 | WOUNDNOTE ---
wound photo: left great toe
[2024-03-07] MEDS: Enoxaparin 40 MG/0.4 ML Syringe SC (10:06)
[2024-03-07] MEDS: 0.9% Normal Saline (250mL Bag) 250 ML 15 ML IV (10:15)
[2024-03-07 10:22] LABS: Absolute Lymphocyte Count 1.22 X10^3/uL (0.83-4.51); Absolute Neutrophil Count 4.3 X10^3/uL (2.0-7.7); Basophil# 0.03 X10^3/uL; Basophil% 0.5 % (0-1); Eosinophil# 0.22 X10^3/uL; Eosinophils% 3.4 % (0-5); Hematocrit 28.4 % (40-54); Hemoglobin 8.9 g/dL (13.0-16.5); Lymphocyte # 1.22 X10^3/ul (0.83-4.51); Lymphocyte % 18.9 % (19-41); Mean Corp Hgb Conc 31.3 g/dL (32-36); Mean Corpuscular Hgb 25.9 pg (27.0-32.0); Mean Corpuscular Volume 82.8 fL (80-94); Mean Platelet Vol. 9.5 fl (6.2-12.0); Monocyte# 0.63 X10^3/uL; Monocyte% 9.8 % (0-10); NRBC Flagged by Analyzer 0 % (0-5); Neutrophil # 4.33 X10^3/uL (2.7-7.7); Neutrophil % 67.2 % (47-70); Platelet Count 327 K/mm3 (150-450); RBC Distribution Width SD 54.4 fl (35.1-43.9); Red Blood Count 3.43 M/mm3 (4.6-6.2); White Blood Count 6.4 K/mm3 (4.4-11.0)
[2024-03-07 10:45] LABS: Anion Gap 6 (5-15); BUN 12 mg/dL (7-18); BUN/Creat Ratio 15.7 RATIO (10-20); Calcium,Total 8.8 mg/dL (8.5-10.1); Chloride 107 mmol/L (98-107); Creatinine, Serum 0.76 mg/dL (0.70-1.30); EST Glomerular Filtration Rate 108 mL/min (>60); Est Glom Filt Rate - Afr Amer 131 mL/min (>60); Estimated Creatinine Clearance 89.16 ml/min; Glucose 131 mg/dL (74-106); Potassium 3.5 mmol/L (3.5-5.1); Sodium Level 138 mmol/L (136-145)
--- NOTE | 2024-03-07 11:12 | CASEMGMT ---
Addendum entered by Hortensia Fitzgerald 03/07/24 12:03: SHIRAZ BAUTISTA into pt room, provided pt with list of local [facility] agencies. Pt states will be in shortly and will review with her. SHIRAZ BAUTISTA to follow up. Original Note: SHIRAZ BAUTISTA Assessment: Face to Face with pt for initial transition planning/care coordination assessment. SHIRAZ BAUTISTA introduced self and role at [facility], pt voices understanding and consents to assessment. Pt is A&O x4 and answers all questions appropriately at this time. Pt lying in bed in no distress. Care providers, pharmacy, and demographics verified/updated. Admitting Dx: Toe Infection PCP: Eliseo Specialists: Sampson, Vascular; Survey Worker from [place]; Tay, Employee Benefits Manager. Preferred Pharmacy: [facility] Insurance: [employer]MASTE Prescription Benefit: yes LNOK: Monika, . Living Arrangements: Pt lives with and 2 kids. ADLs: Pt states asssits with ADLs and IADLs. Transportation: Pt states transports him. DME: Walker, cane. HHC/SNF: Denies hx of. Pt states no concerns with going home at time of dc. Pt states not doing well with NWB LLE. Discussed ID consult and possible IV antibiotics. Provided list of local providers for IV infusion, pt selected [facility] as provider of choice. Will provide pt with list of local [facility] options in case IV antibiotics are needed. Pt states no further concerns/needs. CM to follow. Advised pt to ask CM if any further question/concerns/needs arise, voices understanding. Pt Goal: Home Plan: Home, will follow ID consult. Yahir WELDON CM
--- NOTE | 2024-03-07 11:31 | CASEMGMT ---
Discharge Planning A list of?HH providers including quality and resource use data and consistent with the patient's preferred geographic region, medical needs, and insurance network was created in [employer] Guide.? This list was provided to the RN MICHELE. Nanci Avila, Discharge Planning Asst.
--- NOTE | 2024-03-07 13:44 | CON.PCM.ID_ITS ---
Assessment & Plan Assessment/Plan (1) Chronic osteomyelitis of toe of left foot: PLAN: OR planned for tomorrow. Wound cx with enterococcus and pseudomonas. Cont vanc/zosyn. Will follow, thank you HPI Consult Data Date of Consult: 03/07/24 HPI Narrative Reason for Consultation: osteo HPI Narrative: LATRICE CLIFTON, is a 68 M with h/o stroke, htn, presented with several weeks worsening L foot ulcer with exposed bone, redness. No fever or chills. Had been on doxy and keflex as outpt. Admitted here on vanc/zosyn, OR planned for tomorrow. No n/v/d. Full ROS performed and neg except as noted above. [facility] Medical History Anemia Restless legs Vision loss of left eye Smoker Asthma Hypertension Stroke/cerebrovascular accident Home Medications ?Medication ?Instructions ?Recorded ?Last Taken ?Type amlodipine 10 mg tablet 10 mg PO DAILY blood pressure 03/02/24 03/06/24 08:00 History atorvastatin 40 mg tablet 40 mg PO DAILY 03/02/24 03/06/24 History carvedilol 12.5 mg tablet 12.5 mg PO BID blood pressure 03/02/24 03/06/24 08:00 History cefdinir 300 mg capsule 300 mg PO BID antibiotic 03/02/24 03/06/24 08:00 History citalopram 10 mg tablet 10 mg PO DAILY depression 03/02/24 03/06/24 08:00 History clopidogrel 75 mg tablet 75 mg PO DAILY blood thinner 03/02/24 03/06/24 08:00 History doxycycline hyclate 100 mg tablet 100 mg PO BID antibiotic 03/02/24 03/06/24 08:00 History ezetimibe 10 mg tablet 10 mg PO DAILY cholesterol 03/02/24 03/05/24 08:00 History folic acid 1 mg tablet 1 mg PO DAILY vitamin 03/02/24 03/06/24 08:00 History hydrochlorothiazide 25 mg tablet 25 mg PO DAILY blood pressure 03/02/24 03/05/24 08:00 History hydrocodone-acetaminophen 5-325mg 1 tab PO Q12H PRN pain 03/02/24 03/05/24 22:01 History 5mg-325mg sacubitril 24 mg-valsartan 26 mg 1 tab PO BID blood pressure 03/02/24 03/06/24 08:00 History tablet (Entresto) aspirin 81 mg chewable tablet 1 tab PO DAILY blood thinner 03/06/24 03/06/24 08:00 History Allergy/AdvReac Type Severity Reaction Status Date / Time No Known Allergies Allergy Verified 03/06/24 09:54 Surgical History (Updated 03/06/24 @ 17:[address] Radha Powell, DO) H/O carotid endarterectomy Status post cardiac surgery Social History Smoking Status: Light Smoker (<10/day) Physical Exam Const alert, oriented x3 and no apparent distress General Appearance: cooperative HEENT normocephalic and head/scalp atraumatic Eyes PERRL and EOMs intact bilaterally Neck supple and No nodes Resp normal air movement and clear to auscultation bilaterally Cardio regular rate and regular rhythm GI soft to palpation, non-tender and non-distended Extremity General Extremity: Negative for edema Skin Skin Narrative: reviewed photo of L foot ulcer Neuro CN's II-XII intact bilaterally Lab / Micro Data Attestation: I reviewed the patient's lab results. 03/07/24 10:00 03/07/24 10:00 Labs: Laboratory Results - last 24 hr 03/06/24 10:35: ESR 15, Hemoglobin A1c 5.4, C-React Prot Ext Range 7.88 H 03/07/24 10:00: WBC 6.4, RBC 3.43 L, Hgb 8.9 L, Hct 28.4 L, MCV 82.8, MCH 25.9 L , MCHC 31.3 L, RDW Std Deviation 54.4 H, RDW Coeff of Judie 18.0 H, Plt Count 327, MPV 9.5, Immature Gran % (Auto) 0.200, Neut % (Auto) 67.2, Lymph % (Auto) 18.9 L , [place] % (Auto) 9.8, Eos % (Auto) 3.4, Baso % (Auto) 0.5, Absolute Neuts (auto) 4.3, Absolute Lymphs (auto) 1.22, Nucleated RBC % 0, Sodium 138, Potassium 3.5, Chloride 107, Carbon Dioxide 25.0, Anion Gap 6, BUN 12, Creatinine 0.76, Estim Creat Clear Calc 89.16, Est GFR (MDRD) Af Amer 131, Est GFR (MDRD) Non-Af 108, BUN/Creatinine Ratio 15.7, Glucose 131 H, Calcium 8.8 Micro: Microbiology 03/06/24 19:00 Wound - Left Foot Gram Stain - Final 03/06/24 19:00 Wound - Leg, Left Skin and Soft Tissue MRSA/MSSA (PCR - Final Imaging Radiology Impression Tibia/Fibula X-Ray 03/06/24 21:45 IMPRESSION: Ulcer-like defect within the soft tissues medial and posterior to the tibial midshaft. No findings of osteomyelitis are identified. Electronically Signed: Devonte Alexis MD at 0:31 EDT , Chest X-Ray 03/07/24 05:55 IMPRESSION: Mild pulmonary hyperinflation. No acute cardiopulmonary disease process identified. Electronically Signed: Devonte Alexis MD at 6:48 EDT , Echocardiogram 03/07/24 08:33 Interpretation Summary The left ventricular ejection fraction is 65 %. Left ventricular systolic function is normal. Stage 1 diastolic dysfunction. Stable appearing bioprosthetic aortic valve apparatus. Contrast injection was performed. Ordering Physician: Eron Willis Performed By: Rick Bourgeois RCS
[2024-03-07 14:05] VITALS: BP 118/55; PULSE 70; RESP 16; TEMP 36.8; O2SAT 100
[2024-03-07 16:39] VITALS: BP 116/65; PULSE 72; RESP 16; TEMP 36.6; O2SAT 99
[2024-03-07] MEDS: Juven (unflavored) Packet 1 PACKET PO (16:42)
[2024-03-07] MEDS: oxyCODONE 5 MG Tablet PO (18:28)
[2024-03-07 20:23] VITALS: BP 124/64; PULSE 69; RESP 18; TEMP 36.5; O2SAT 97
[2024-03-07] MEDS: Atorvastatin Calcium 40 MG Tablet PO (21:14)
[2024-03-08] VITALS (9 sets, daily range): BP systolic 93–131; BP diastolic 51–66; PULSE 63–73; RESP 16; TEMP 36.1–37.1; O2SAT 89–100; BMI 20.2
[2024-03-08] MEDS: 0.9% Normal Saline (250mL Bag) 250 ML 15 ML IV (00:32)
[2024-03-08 03:47] LABS: Absolute Lymphocyte Count 1.78 X10^3/uL (0.83-4.51); Absolute Neutrophil Count 4.6 X10^3/uL (2.0-7.7); Basophil# 0.03 X10^3/uL; Basophil% 0.4 % (0-1); Eosinophil# 0.35 X10^3/uL; Eosinophils% 4.7 % (0-5); Hematocrit 30.2 % (40-54); Hemoglobin 9.6 g/dL (13.0-16.5); Lymphocyte # 1.78 X10^3/ul (0.83-4.51); Lymphocyte % 23.7 % (19-41); Mean Corp Hgb Conc 31.8 g/dL (32-36); Mean Corpuscular Hgb 26.2 pg (27.0-32.0); Mean Corpuscular Volume 82.3 fL (80-94); Mean Platelet Vol. 8.9 fl (6.2-12.0); Monocyte# 0.78 X10^3/uL; Monocyte% 10.4 % (0-10); NRBC Flagged by Analyzer 0 % (0-5); Neutrophil # 4.55 X10^3/uL (2.7-7.7); Neutrophil % 60.5 % (47-70); Platelet Count 330 K/mm3 (150-450); RBC Distribution Width CV 17.8 % (11.6-14.6); RBC Distribution Width SD 53.4 fl (35.1-43.9); Red Blood Count 3.67 M/mm3 (4.6-6.2); White Blood Count 7.5 K/mm3 (4.4-11.0)
[2024-03-08 04:00] LABS: Anion Gap 5 (5-15); BUN 14 mg/dL (7-18); BUN/Creat Ratio 23.3 RATIO (10-20); CRP 9.07 mg/L (0.0-3.0); Chloride 108 mmol/L (98-107); EST Glomerular Filtration Rate 142 mL/min (>60); Est Glom Filt Rate - Afr Amer 172 mL/min (>60); Estimated Creatinine Clearance 89.16 ml/min; Glucose 98 mg/dL (74-106); Magnesium 1.9 mg/dL (1.6-2.6); Phosphorus 3.6 mg/dL (2.5-4.9); Potassium 3.4 mmol/L (3.5-5.1); Sodium Level 139 mmol/L (136-145)
[2024-03-08 04:02] LABS: Vancomycin, Trough Level 13.9 ug/mL (5.0-15.0)
--- NOTE | 2024-03-08 04:17 | PCM.RX.CS ---
Consult Antibiotic Management Pharmacy has been consulted to manage selected antibiotic: Vancomycin Type of Intervention Type of Consult: Follow-up Suspected Infection Suspected Infection: Osteomyelitis Labs Labs: Sodium 139 mmol/L (136-145) 03/08/24 03:35 Potassium 3.4 mmol/L (3.5-5.1) L 03/08/24 03:35 Chloride 108 mmol/L (98-107) H 03/08/24 03:35 Carbon Dioxide 26.0 mmol/L (21.0-32.0) 03/08/24 03:35 Anion Gap 5 (5-15) 03/08/24 03:35 BUN 14 mg/dL (7-18) 03/08/24 03:35 Creatinine 0.60 mg/dL (0.70-1.30) L 03/08/24 03:35 Est GFR (MDRD) Af Amer 172 mL/min (>60) 03/08/24 03:35 Est GFR (MDRD) Non-Af 142 mL/min (>60) 03/08/24 03:35 BUN/Creatinine Ratio 23.3 RATIO (10-20) H 03/08/24 03:35 Glucose 98 mg/dL (74-106) 03/08/24 03:35 Vancomycin Trough 13.9 ug/mL (5.0-15.0) 03/08/24 03:35 Microbiology Microbiology: Microbiology 03/06/24 19:00 Wound - Left Foot Gram Stain - Final 03/06/24 19:00 Wound - Leg, Left Skin and Soft Tissue MRSA/MSSA (PCR - Final Dosing Weight Weight used for dosin.4 kg Estimated Creatinine Clearance Estimated Creatinine Clearance: 89 Goal Trough Goal Trough: 15-20 mcg/mL Pharmacy Plan for Drug Dosing Pharmacy Plan for Drug Dosing: Vancomycin trough level of 13.9, drawn 11.5hrs post-dose, was below the target range of 15-20. Will increase dose to 1500mg q12h, and will draw another trough prior to fourth dose of the new regimen. Pharmacy Service will continue to monitor and adjust dosing as required. Follow-Up Labs Follow-Up Labs: Trough: Vancomycin Date/Time Labs Ordered Labs to be done on [date and time ordered]: 03/09/24 @1600
[2024-03-08] MEDS: Vancomycin HCl 1,500 MG in 0.9% Normal Saline (500mL Bag) 500 ML 250 MG IV ×2 (05:06→15:58)
[2024-03-08] MEDS: Piperacil/Tazobactam 3.375 GM in 0.9% Normal Saline (50mL MB+) 50 ML IV ×3 (05:06→21:08)
--- NOTE | 2024-03-08 07:09 | PRE.ANES_ITS ---
ASA Classification* ASA Classification ASA Classification: 3 Assessment & Plan Anesthesia* Anesthesia Assessment Anesthesia Assessment: Discussed sedation and/or anesthesia options, risks, benefits, and alternatives with patient/parents/legal guardian/POA. Questions invited. The patient/parents/legal guardian/POA seems to understand and agrees to proceed with anesthesia plan. Reviewed the physical assessment, medical history, allergy history and patient home medications list prior to surgery/procedure/anesthetic and documented any changes. Performed airway and anesthesia risk assessments. Anesthesia Type Anesthesia Type: General (vs Mac local) Anesthesia Focused Assessment* Temperature: 98 F Pulse Rate: 69 Blood Pressure: 131/66 Respiratory Rate: 16 Pulse Ox: 96 Airway Assessment Mouth opens: >3 cm Mallampati Score: II Focused Labs Anesthesia Preop lab: CBC WBC 7.5 K/mm3 (4.4-11.0) 03/08/24 03:35 RBC 3.67 M/mm3 (4.6-6.2) L 03/08/24 03:35 Hgb 9.6 g/dL (13.0-16.5) L 03/08/24 03:35 Hct 30.2 % (40-54) L 03/08/24 03:35 Plt Count 330 K/mm3 (150-450) 03/08/24 03:35 CHEMISTRY Potassium 3.4 mmol/L (3.5-5.1) L 03/08/24 03:35 Sodium 139 mmol/L (136-145) 03/08/24 03:35 Magnesium 1.9 mg/dL (1.6-2.6) 03/08/24 03:35 Phosphorus 3.6 mg/dL (2.5-4.9) 03/08/24 03:35 BUN 14 mg/dL (7-18) 03/08/24 03:35 Creatinine 0.60 mg/dL (0.70-1.30) L 03/08/24 03:35 Glucose 98 mg/dL (74-106) 03/08/24 03:35 TSH 1.72 uIU/mL (0.358-3.74) 10/23/15 16:49 COAG PT 13.6 SECONDS (11.7-14.9) 03/06/24 10:35 Pre-Assessment Diagnosis/Proposed Procedure Planned Operative Procedure(s): L partial foot amputation, I&D Anesthesia History 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 When Was Last Pacemaker Check QUESTION #4 FULL TEXT: You/Your Family Experience fever (hyperthermia) with Anesthesia Last Oral Intake Last Oral intake: Last Oral Intake NPO since 00:00 03/08/24 01:54 Meds taken in AM with sips of water? 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 nurse supervisor: PONV - evening or night nurse supervisor Female HX of Motion Sickness HX of N/V After Surgery Non-Smoker Duration of Surgery greater than 60 minutes Number of Risk Factors PONV Score Height & Weight Height & Weight: Anesthesia: Height & Weight Height 6 ft 1 in 03/08/24 01:54 Weight: 69.4 kg 03/08/24 01:54 Body Mass Index (BMI) 20.2 03/08/24 01:54 Respiratory Assessment Respiratory Assessment - evening or night nurse supervisor: Respiratory Tract Infection Hx - evening or night nurse supervisor Hx Respiratory Tract Infection No 03/08/24 01:54 STOP Sleep Apnea STOP Sleep Apnea - evening or night nurse supervisor: STOP Sleep Apnea - evening or night nurse supervisor Hx Hypertension Yes 03/06/24 15:18 Hx Sleep Apnea No 03/06/24 15:18 CPAP BIPAP Do you snore loudly (louder No 03/06/24 15:18 than talking or can be heard Do you often feel tired/ No 03/06/24 15:18 fatigued/ sleepy during daytime? Has anyone observed you stop No 03/06/24 15:18 breathing during sleep? STOP Results Negative 03/06/24 15:18 QUESTION #5 FULL TEXT : Do you snore loudly (louder than talking or can be heard through closed doors)? 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 Specify any problems Hx of Preganancy in last 3 N/A 03/06/24 15:18 Months Nurse Filling Out Transfusion TWOLF 03/06/24 15:18 & Questions: Date: 03/06/24 03/06/24 15:18 Time: 15:03/06/24 15:18 Patient unable to answer at this time (ie. confused, unrespo /Reproduction History /Reproductive History - evening or night nurse supervisor: /Reproductive Hx- evening or night nurse supervisor Hx Now No 03/08/24 01:54 Gestational Age (in weeks): EDC: Hx Hx Para Hx Section SAB No 03/08/24 01:54 Active Medications Active Medications: Current Medications Generic Name Dose Route Start Last Admin Trade Name Freq PRN Reason Stop Dose Admin Amlodipine Besylate 10 mg 03/07/24 10:00 03/07/24 08:28 Amlodipine 10 Mg Tablet PO 10 mg DAILY TEMO Administration Protocol Aspirin 81 mg 03/07/24 08:00 03/07/24 08:29 Aspirin 81 Mg Tab.Chew PO 81 mg DAILYCM TEMO Administration Atorvastatin Calcium 40 mg 03/07/24 22:00 03/07/24 21:14 Atorvastatin Calcium 40 Mg Tablet PO 40 mg QHS TEMO Administration Carvedilol 12.5 mg 03/06/24 17:00 03/07/24 16:42 Carvedilol 12.5 Mg Tablet PO 12.5 mg BIDCM TEMO Administration Protocol Citalopram Hydrobromide 10 mg 03/07/24 10:00 03/07/24 08:28 Citalopram 10 Mg Tablet PO 10 mg DAILY TEMO Administration Clopidogrel Bisulfate 75 mg 03/07/24 10:00 03/07/24 08:28 Clopidogrel Bisulfate 75 Mg Tablet PO 75 mg DAILY TEMO Administration Ezetimibe 10 mg 03/07/24 10:00 03/07/24 08:29 Ezetimibe 10 Mg Tablet PO 10 mg DAILY TEMO Administration Enoxaparin Sodium 40 mg 03/07/24 10:00 03/07/24 10:06 Enoxaparin 40 Mg/0.4 Ml Syringe SC 40 mg DAILY TEMO Administration Folic Acid 1 mg 03/07/24 08:00 03/07/24 08:29 Folic Acid 1 Mg Tablet PO 1 mg DAILYCM TEMO Administration Hydrochlorothiazide 25 mg 03/07/24 10:00 03/07/24 08:28 Hydrochlorothiazide 25 Mg Tablet PO 25 mg DAILY TEMO Administration Protocol Vancomycin IV-PHARMACY TO DOSE 500 mls @ 250 mls/hr 03/06/24 14:58 1 each/ Sodium Chloride IV X1 PRN Rx to Dose Protocol Piperacillin Sod/Tazobactam 50 mls @ 12.5 mls/hr 03/06/24 15:05 03/08/24 05:06 Sod 3.375 gm/ Sodium Chloride IV 12.5 mls/hr Q8 TEMO Administration Sodium Chloride 250 mls @ 15 mls/hr 03/06/24 15:34 03/08/24 05:10 IV 0 mls/hr .[id number] PRN Infusion Additional IVPB Infusion Sodium Chloride 250 mls @ 15 mls/hr 03/06/24 15:34 03/07/24 17:04 IV Infused .[id number] PRN Infusion Saline Flush Vancomycin HCl 1,500 mg/ 530 mls @ 250 mls/hr 03/08/24 04:30 03/08/24 05:06 Sodium Chloride IV 250 mls/hr Q12H TEMO Administration Lactated Ringer's 1,000 mls @ 15 mls/hr 03/08/24 07:00 IV .Q48H TEMO L-Arginine/L-Glutamine/Calcium HMB 1 packet 03/07/24 17:00 03/07/24 16:42 Steven (Unflavored) Packet PO 1 packet BIDCM TEMO Administration Oxycodone HCl 5 mg 03/06/24 15:03 07/22/24 18:28 Oxycodone 5 Mg Tablet PO 5 mg Q6H PRN PRN Administration Pain Score 1-10 Sacubitril/Valsartan 1 each 03/06/24 22:00 03/07/24 21:14 Sacubitril/Valsartan 24/26 Mg Tablet PO 1 each BID TEMO Administration Sodium Chloride 10 - 40 ml 03/06/24 15:34 03/07/24 05:00 0.9% Saline Lock 10 Ml Syringe IV 10 ml UD PRN Administration SALINE FLUSH Vancomycin Protocol 1 lab 03/09/24 14:00 Vancomycin Trough/Random Due MC 03/09/24 18:00 DAILY TEMO PFSH Medical History Anemia Restless legs Vision loss of left eye Smoker Asthma Hypertension Stroke/cerebrovascular accident Home Medications ?Medication ?Instructions ?Recorded ?Last Taken ?Type amlodipine 10 mg tablet 10 mg PO DAILY blood pressure 03/02/24 03/06/24 08:00 History atorvastatin 40 mg tablet 40 mg PO DAILY 03/02/24 03/06/24 History carvedilol 12.5 mg tablet 12.5 mg PO BID blood pressure 03/02/24 03/06/24 08:00 History cefdinir 300 mg capsule 300 mg PO BID antibiotic 03/02/24 03/06/24 08:00 History citalopram 10 mg tablet 10 mg PO DAILY depression 03/02/24 03/06/24 08:00 History clopidogrel 75 mg tablet 75 mg PO DAILY blood thinner 03/02/24 03/06/24 08:00 History doxycycline hyclate 100 mg tablet 100 mg PO BID antibiotic 03/02/24 03/06/24 08:00 History ezetimibe 10 mg tablet 10 mg PO DAILY cholesterol 03/02/24 03/05/24 08:00 History folic acid 1 mg tablet 1 mg PO DAILY vitamin 03/02/24 03/06/24 08:00 History hydrochlorothiazide 25 mg tablet 25 mg PO DAILY blood pressure 03/02/24 03/05/24 08:00 History hydrocodone-acetaminophen 5-325mg 1 tab PO Q12H PRN pain 03/02/24 03/05/24 22:01 History 5mg-325mg sacubitril 24 mg-valsartan 26 mg 1 tab PO BID blood pressure 03/02/24 03/06/24 08:00 History tablet (Entresto) aspirin 81 mg chewable tablet 1 tab PO DAILY blood thinner 03/06/24 03/06/24 08:00 History Allergy/AdvReac Type Severity Reaction Status Date / Time No Known Allergies Allergy Verified 03/06/24 09:54 Surgical History (Updated 03/06/24 @ 17:[address] Radha Powell DO) H/O carotid endarterectomy Status post cardiac surgery Social History Smoking Status: Light Smoker (<10/day) Review of Systems (Anesthesia) ROS Narrative System reviewed and no additional complaints, except as documented.
--- NOTE | 2024-03-08 07:24 | PN.HOSP_ITS ---
Reason for Visit Reason for Visit: Diagnoses Hypokalemia (03/06/24) Other specified peripheral vascular diseases (03/06/24) Local infection of the skin and subcutaneous tissue, unspecified (03/06/24) Non-pressure chronic ulcer of other part of left foot with necrosis of bone (03/06/24) Non-pressure chronic ulcer of other part of left lower leg with necrosis of muscle (03/06/24) Other acute osteomyelitis, left ankle and foot (03/06/24) Other chronic osteomyelitis, left ankle and foot (03/06/24) Subjective Subjective Been seen scheduled to undergo surgical intervention Objective Data Objective Data Vital Signs: Vital Signs Temp Pulse Resp BP Pulse Ox O2 Del Method 98 F 69 16 131/66 H 96 Room Air 03/08/24 07:09 03/08/24 07:09 03/08/24 07:09 03/08/24 07:09 03/08/24 07:09 03/08/24 05:08 Oxygen Delivery Method Room Air Weight: 69.4 kg Body Mass Index (BMI) 20.2 Intake & Output: Intake and Output for Last 24 Hours 03/06/24 03/07/24 03/08/24 23:59 23:59 23:59 Intake Total 2935 / 2935 2550 / 2550 316.50 / 316.50 Balance 2935 / 2935 2550 / 2550 316.50 / 316.50 Lab / Micro Data 03/08/24 03:35 03/08/24 03:35 Labs: Laboratory Results - last 24 hr 03/07/24 10:00: WBC 6.4, RBC 3.43 L, Hgb 8.9 L, Hct 28.4 L, MCV 82.8, MCH 25.9 L , MCHC 31.3 L, RDW Std Deviation 54.4 H, RDW Coeff of Judie 18.0 H, Plt Count 327, MPV 9.5, Immature Gran % (Auto) 0.200, Neut % (Auto) 67.2, Lymph % (Auto) 18.9 L , Metcalfe % (Auto) 9.8, Eos % (Auto) 3.4, Baso % (Auto) 0.5, Absolute Neuts (auto) 4.3, Absolute Lymphs (auto) 1.22, Nucleated RBC % 0, Sodium 138, Potassium 3.5, Chloride 107, Carbon Dioxide 25.0, Anion Gap 6, BUN 12, Creatinine 0.76, Estim Creat Clear Calc 89.16, Est GFR (MDRD) Af Amer 131, Est GFR (MDRD) Non-Af 108, BUN/Creatinine Ratio 15.7, Glucose 131 H, Calcium 8.8 03/08/24 03:35: WBC 7.5, RBC 3.67 L, Hgb 9.6 L, Hct 30.2 L, MCV 82.3, MCH 26.2 L , MCHC 31.8 L, RDW Std Deviation 53.4 H, RDW Coeff of Judie 17.8 H, Plt Count 330, MPV 8.9, Immature Gran % (Auto) 0.300, Neut % (Auto) 60.5, Lymph % (Auto) 23.7, Metcalfe % (Auto) 10.4 H, Eos % (Auto) 4.7, Baso % (Auto) 0.4, Absolute Neuts (auto) 4.6, Absolute Lymphs (auto) 1.78, Nucleated RBC % 0, Sodium 139, Potassium 3.4 L , Chloride 108 H, Carbon Dioxide 26.0, Anion Gap 5, BUN 14, Creatinine 0.60 L, Estim Creat Clear Calc 89.16, Est GFR (MDRD) Af Amer 172, Est GFR (MDRD) Non-Af 142, BUN/Creatinine Ratio 23.3 H, Glucose 98, Calcium 9.0, Phosphorus 3.6, Magnesium 1.9, C-React Prot Ext Range 9.07 H, Vancomycin Trough 13.9 Micro: Microbiology 03/06/24 19:00 Wound - Left Foot Gram Stain - Final 03/06/24 19:00 Wound - Leg, Left Skin and Soft Tissue MRSA/MSSA (PCR - Final Radiography Diagnostic Testing: Radiology Impression Echocardiogram 03/07/24 08:33 Interpretation Summary The left ventricular ejection fraction is 65 %. Left ventricular systolic function is normal. Stage 1 diastolic dysfunction. Stable appearing bioprosthetic aortic valve apparatus. Contrast injection was performed. Ordering Physician: Eron Willis Performed By: Rick Bourgeois RCS Physical Exam Narrative GENERAL: cooperative HEENT: Atraumatic; normocephalic EYES; Anicteric, Normal Conjunctiva NECK; supple, normal thyroid, RESPIRATORY: Diminished to auscultation CARDIOVASCULAR: Regular S1 S2, GI: soft, normoactive bowel sounds, : No Renal angle tenderness; EXTREMITIES: Necrotic wound on the plantar surface of the left big toe, MUSCULOSKELETAL: no muscle wasting NEURO: Awake; no lateralizing signs. SKIN: No Rash PSYCH; Flat affect Assessment & Plan Assessment/Plan (1) Infection of great toe: (2) Acute osteomyelitis of left foot: (3) Other specified peripheral vascular diseases: (4) Hypokalemia: PLAN: Plan Patient is a 68-year-old gentleman with history of chronic left toe wound who presented to the emergency department with worsening symptoms 1. Left foot infection with concern for osteomyelitis -X-ray shows soft tissue prominence of the great toe,-Cultures from 03/02/2024 showed Pseudomonas and Enterococcus faecalis patient subsequently started on Zosyn and vancomycin based on sensitivities with consultation placed to podiatry ? 02/2024; wound debridement scheduled today 2. Hypokalemia ? Corrected per protocol repeat labs ordered for monitoring 3. Peripheral vascular disease -Follows with Dr. Braden in [place]; Recent left lower extremity intervention with no ongoing plans for any further intervention patient is on dual antiplatelet therapy 4. Valvular heart disease ? With history of bioprosthetic aortic valve replacement 5. Hypertension - Blood pressure controlled, home medications continued with dose adjustment as needed 6. Dyslipidemia -Patient is on statin therapy, continued at home dose 7. Tobacco dependence - Counseled on cessation, offered nicotine patch for tobacco cravings 8. Anemia - Secondary to chronic disorder monitoring H&H and transfuse if patient becomes symptomatic or hemoglobin falls below 7 9. Depression ? Patient is on citalopram 10. Chronic congestive heart failure ? EF unknown patient is on Entresto echo ordered for baseline assessment 11. DVT prophylaxis - On enoxaparin Time spent in the patient's overall evaluation,decision-making process, review of diagnostic data, adjustment of management, discussion with other providers, nursing nursing and ancillary staff involved in patient's care documentation, 35 Minutes Charges/Coding Visit Charges Inpatient E&M: 22220 Subs Hosp L2
--- NOTE | 2024-03-08 07:30 | AMP_PTH ---
PATIENT: LATRICE CLIFTON Jr. LOC: MS3 U#:[id number] AGE/SX: 68/M ROOM: [facility] RE03/06/[address]: Dr. Eron Willis MD : 1955 BED: 1 DIS: 03/09/2024 SPEC #: [id number] RECD: 03/08/24 11:12 STATUS: MARIA D RELeonela #: [id number] KG: 03/08/24 07:[address]: Jonathan Garcia DEPT: SURGICAL PATHOLOGY RECD BY: Oneyda Baum ENTERED: 03/08/24 12:32 SP TYPE: Amputation OTHR DR: MD Dr. Greg Tucker, DPM DO Dr. Chai Oswald MD Sherry Ramsey, SECURITY SPECIALIST-C Tissues: Toe, NOS Procedures: Decalcification bone/plaque Surgery Specimen Level IV Comments: @ Ordering doctor for DEC edited from to @ by JOSEPH at 03/08/24 1330 @ Ordering doctor for SUIV edited from to @ by JOSEPH at 03/08/24 1330 @ Submitting doctor edited from to @ by JOSEPH at 03/08/24 1330 HEADER OPERATION: Left partial 1st toe amputation with delayed primary closure PRE-OP DIAGNOSIS: Non-pressure chronic ulcer of other part of left foot with necrosis of bone TISSUE SUBMITTED: Left big toe MICROSCOPIC DIAGNOSIS Left big toe, amputation: Focal ulceration, acute and chronic inflammation and granulation tissue reaction. Bone with acute osteomyelitis. [facility] 03/11/2024 MICROSCOPIC DESCRIPTION Slides are reviewed. GROSS DESCRIPTION Received in fixative is one container labeled with the patient's name and designated Left great toe. The specimen consists of a portion of toe measuring 3.0 x 3.5 x 3.0cm. Skin surface shows focal ragged area. No obvious ulceration is noted. Nail is present and appears focal atrophic. Also present in the container are two detached pieces of bone measuring in aggregate 5.5 x 3.5 x 2.0cm. Facilities Operator sections are submitted in six cassettes as follows: 1- skin with ragged area, 2- soft tissue attached to the detached pieces of bone, 3-6- bone after decalcification. [facility] 03/08/2024 TC:2 CPT:59381,25642
[2024-03-08] MEDS: Bupivacaine Mpf 0.5% 30 ML VIAL ×2 (08:00→08:43)
--- NOTE | 2024-03-08 08:54 | OP.PCM_ITS ---
Problems Associated Problem List Diagnoses (1) Non-pressure chronic ulcer of other part of left foot with necrosis of bone: (2) Chronic osteomyelitis of toe of left foot: (3) Acute osteomyelitis of left foot: (4) Other specified peripheral vascular diseases: (5) Non-pressure chronic ulcer of other part of left lower leg with necrosis of muscle: Report of Operation Date of Procedure: 03/08/24 Pre-Operative Diagnosis: 1) full-thickness leg wound with necrosis of muscle left lower extremity 2) full-thickness foot wound with necrosis of bone left foot 3) left foot osteomyelitis 4) peripheral arterial disease Post-Operative Diagnosis: Same Surgery/Procedure Performed:: 1) excisional debridement left leg wound down to muscle 2) delayed primary closure left leg wound 3) partial first ray amputation left foot Description of Surgical Findings:: Patient admitted for chronic osteomyelitis with exposed necrotic bone the left hallux. Site appears stable patient not monitoring systemic immune response. Patient had chronic left leg wound from recent vascular procedure per Dr. Braden. Decision was made for left leg wound debridement delayed primary closure and partial first ray amputation for definitive amputation left lower extremity Surgeon: Jonathan Garcia manager marketing sales: None Type of Anesthesia: MAC Special Medications: 40cc 0.5% marcaine plain Specimen's removed: Left hallux and first metatarsal head Drains: None Estimated Blood Loss (mL): 100 cc Description of Procedure: Patient brought back the operating placed comfortably in supine position on ope rating room table. Patient induced under MAC anesthesia. Well-padded to the left thigh tourniquet was applied. This was not used throughout the case. Left lower extremity was scrubbed prepped and draped using typical aseptic fashion Was cleared by anesthesia procedure #1 was performed Procedure #1 excisional debridement left lower extremity wound down to including level of muscle: Predebridement left leg wound measured 8.2 x 4.2 x 3.5 cm. This wound was debrided excisionally of all nonviable tissue down to including the level of muscle using a combination of pickups #15 blade and bone rongeurs. Healthy bleeding granular base noted postdebridement no evidence of deep underlying infection or abscess. Postdebridement wound was 8.4 x 4.4 x 3.7 cm. Procedure #2 delayed primary closure left lower extremity wound: Left leg wound was flushed with copious amounts normal sterile saline the medial and lateral flaps were mobilized using 15 blade and pickups using undermining. Delayed primary closure performed with simple interrupted 2-0 Prolene. Procedure #3 partial first ray amputation left first: Using a dorsal racquet incisional approach partial first ray amputation was performed 15 blade was used to make a full-thickness incision linearly along the dorsal aspect of the distal first metatarsal down to level bone full-thickness knee bleeders were identified and cauterized at this time. The first metatarsal head was dissected out full-thickness using combination of pickups and 15 blade the hallux was disarticulated at the level of the metatarsal phalangeal joint passed to the back table. The first metatarsal head was then removed obliquely using saw cuts with a sagittal saw. Next any nonviable extensor flexor tendons were removed including the sesamoid apparatus using pickups and crown and collar scissors. All this tissue was passed the back table in splint with half of the bone and tissue going to pathology for further examination and the other half going to microbiology for further evaluation. Site was flushed with copious amounts of normal sterile saline. Incisional closure was performed with 3-0 Vicryl using simple interrupted buried technique. Skin closure performed with horizontal mattress using 3-0 Prolene. Tourniquet was never used. 100 cc blood loss noted. Any bleeders identified cauterized. Healthy bleeding noted suggestive of good wound healing potential. Foot was cleansed and dressed with Betadine Adaptic 4 x 4's ABD pads Kerlix and a single layer Keyes compression dressing wrapped gently to prevent any additional tissue breakdown. Patient was transferred to PACU vital signs stable vascular status intact all digits for further monitoring prior to transfer back to floor. Patient receiving IV vancomycin and Zosyn on the floor. Will consider ID consult pending wound and amputation cultures. No complications.
--- NOTE | 2024-03-08 09:07 | PCM.POST.ANE ---
Anesthesia: Postop Eval I Current Vital Signs Temperature: 97 F Pulse Rate: 73 Blood Pressure: 93/51 Respiratory Rate: 16 Pulse Ox: 100 Oxygen Delivery Method: Room Air Assessment Airway patent: Yes Spontaneous unlabored respirations: Yes Mental status: Awake and Calm nausea: No Vomiting: No Anesthesia Complication: No Fluid Hydration Crystalloid volume administer (ml): 1,000 Total IV fluid infused: 1,000 Progress Note Anesthesia document: Postop Eval 1 completed: Yes
--- NOTE | 2024-03-08 09:40 | PCM.POSTANE2 ---
Anesthesia Postop Eval I Sum Postop Eval Completion status Anesthesia document: Postop Eval 1 completed: Yes Anesthesia Postop Eval I Summary Anesthesia Postop Eval I Summary: Anesthesia Postop Eval I: Assessment Summary Airway patent Yes 03/08/24 09:09 Spontaneous unlabored Yes 03/08/24 09:09 respirations Mental status Awake,Calm 03/08/24 09:09 nausea No 03/08/24 09:09 Vomiting No 03/08/24 09:09 Anesthesia Postop Eval I: Fluid Summary Crystalloid volume administer 1,000 03/08/24 09:09 (ml) Colloids volume administered ( ml) Blood Product volume administered (ml) Total IV fluid infused 1,000 03/08/24 09:09 Anesthesia Postop Eval I: Summary Notes Anesthesia Complication No 03/08/24 09:09 Anesthesia Complication Comment: Post-operative progress note Anesthesia: Postop Eval II Evaluation Mental status: Awake and Calm Pain Level: 0 nausea: No Vomiting: No Complications Anesthesia Complication: No
[2024-03-08] MEDS: amLODIPine 10 MG Tablet PO (10:12)
[2024-03-08] MEDS: hydroCHLOROthiazide 25 MG Tablet PO (10:12)
[2024-03-08] MEDS: SACUBITRIL/VALSARTAN 24/26 MG TABLET 1 EACH PO ×2 (10:12→21:08)
[2024-03-08] MEDS: Folic Acid 1 MG Tablet PO (10:13)
[2024-03-08] MEDS: Ezetimibe 10 MG Tablet PO (10:13)
[2024-03-08] MEDS: Carvedilol 12.5 MG Tablet PO ×2 (10:13→16:06)
[2024-03-08] MEDS: Juven (unflavored) Packet 1 PACKET PO ×2 (10:13→16:07)
[2024-03-08] MEDS: Citalopram 10 MG Tablet PO (10:13)
--- NOTE | 2024-03-08 10:20 | WOUNDNOTE ---
Pt had surgery today. will leave dressings in place.
--- NOTE | 2024-03-08 10:34 | PCM.PN.ID ---
Physical Exam Narrative Feeling ok s/p OR this AM. No fever, no n/v/d. Pain controlled. Const alert and no apparent distress General Appearance: cooperative Resp normal air movement and clear to auscultation bilaterally Cardio regular rate and regular rhythm GI soft to palpation, non-tender and non-distended Skin Skin Narrative: L foot wrapped ID ID: Route of nutrition/ use of supplements: [] Nutritional Intake: [] IV Site: [] Coyle Catheter: [] Assessment & Plan Assessment/Plan (1) Chronic osteomyelitis of toe of left foot: PLAN: OR this AM 03/08/[address] Garcia for I&D down to muscle and partial 1st ray amputation of L foot. Wound cx with enterococcus and pseudomonas. Cont vanc/zosyn. Surg cx pending. Will follow
[2024-03-08] MEDS: 0.9% Saline Lock 10 ML Syringe IV (15:59)
[2024-03-08] MEDS: Acetaminophen 325 MG Tablet 650 MG PO ×2 (16:06→22:54)
[2024-03-08] MEDS: Atorvastatin Calcium 40 MG Tablet PO (21:08)
[2024-03-09] MEDS: Vancomycin HCl 1,500 MG in 0.9% Normal Saline (500mL Bag) 500 ML 250 MG IV (04:23)
[2024-03-09] MEDS: oxyCODONE 5 MG Tablet PO ×2 (04:26→08:50)
[2024-03-09 04:37] VITALS: BP 120/58; PULSE 77; RESP 16; TEMP 37.2; O2SAT 98
[2024-03-09] MEDS: Piperacil/Tazobactam 3.375 GM in 0.9% Normal Saline (50mL MB+) 50 ML IV ×2 (04:39→13:04)
[2024-03-09 06:41] LABS: Absolute Lymphocyte Count 1.78 X10^3/uL (0.83-4.51); Absolute Neutrophil Count 5.3 X10^3/uL (2.0-7.7); Basophil# 0.03 X10^3/uL; Basophil% 0.3 % (0-1); Eosinophil# 0.45 X10^3/uL; Eosinophils% 5.2 % (0-5); Hematocrit 27.1 % (40-54); Hemoglobin 8.4 g/dL (13.0-16.5); Lymphocyte # 1.78 X10^3/ul (0.83-4.51); Lymphocyte % 20.7 % (19-41); Mean Corpuscular Hgb 25.9 pg (27.0-32.0); Mean Corpuscular Volume 83.6 fL (80-94); Mean Platelet Vol. 9.9 fl (6.2-12.0); Monocyte# 1.02 X10^3/uL; Monocyte% 11.9 % (0-10); NRBC Flagged by Analyzer 0 % (0-5); Neutrophil # 5.29 X10^3/uL (2.7-7.7); Neutrophil % 61.7 % (47-70); Platelet Count 297 K/mm3 (150-450); RBC Distribution Width CV 18.2 % (11.6-14.6); RBC Distribution Width SD 55.5 fl (35.1-43.9); Red Blood Count 3.24 M/mm3 (4.6-6.2); White Blood Count 8.6 K/mm3 (4.4-11.0)
[2024-03-09 07:08] LABS: Anion Gap 4 (5-15); BUN 19 mg/dL (7-18); BUN/Creat Ratio 30.2 RATIO (10-20); CRP 7.81 mg/L (0.0-3.0); Calcium,Total 8.5 mg/dL (8.5-10.1); Chloride 107 mmol/L (98-107); Creatinine, Serum 0.63 mg/dL (0.70-1.30); EST Glomerular Filtration Rate 135 mL/min (>60); Est Glom Filt Rate - Afr Amer 164 mL/min (>60); Estimated Creatinine Clearance 89.16 ml/min; Glucose 94 mg/dL (74-106); Potassium 3.5 mmol/L (3.5-5.1); Sodium Level 138 mmol/L (136-145)
--- NOTE | 2024-03-09 07:30 | PN.HOSP_ITS ---
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 Hemoglobin down to 8.4. Objective Data Objective Data Vital Signs: Vital Signs Temp Pulse Resp BP Pulse Ox O2 Del Method O2 Flow Rate 98.9 F 77 16 120/58 L 98 Room Air 3 03/09/24 04:37 03/09/24 04:37 03/09/24 04:37 03/09/24 04:37 03/09/24 04:37 03/09/24 04:37 03/08/24 09:10 Oxygen Flow Rate (L/min) 3 Oxygen Delivery Method Room Air Weight: 69.4 kg Body Mass Index (BMI) 20.2 Intake & Output: Intake and Output for Last 24 Hours 03/07/24 03/08/24 03/09/24 23:59 23:59 23:59 Intake Total 2550 / 2550 3276.50 / 3276.50 580 / 580 Balance 2550 / 2550 3276.50 / 3276.50 580 / 580 Lab / Micro Data 03/09/24 06:04 03/09/24 06:04 Labs: Laboratory Results - last 24 hr 03/09/24 06:04: WBC 8.6, RBC 3.24 L, Hgb 8.4 L, Hct 27.1 L, MCV 83.6, MCH 25.9 L , MCHC 31.0 L, RDW Std Deviation 55.5 H, RDW Coeff of Judie 18.2 H, Plt Count 297, MPV 9.9, Immature Gran % (Auto) 0.200, Neut % (Auto) 61.7, Lymph % (Auto) 20.7, [place] % (Auto) 11.9 H, Eos % (Auto) 5.2 H, Baso % (Auto) 0.3, Absolute Neuts (auto) 5.3, Absolute Lymphs (auto) 1.78, Nucleated RBC % 0, Sodium 138, Potassium 3.5, Chloride 107, Carbon Dioxide 27.0, Anion Gap 4 L, BUN 19 H, C reatinine 0.63 L, Estim Creat Clear Calc 89.16, Est GFR (MDRD) Af Amer 164, Est GFR (MDRD) Non-Af 135, BUN/Creatinine Ratio 30.2 H, Glucose 94, Calcium 8.5, C- React Prot Ext Range 7.81 H Micro: Microbiology 03/06/24 10:35 Blood Culture (Wb) - Left Forearm Blood Culture - Preliminary No growth in 48 hours. 03/06/24 19:00 Wound - Left Foot Gram Stain - Final 03/06/24 19:00 Wound - Left Foot Wound Culture - Preliminary No growth-Final to follow 03/06/24 19:00 Wound - Leg, Left Skin and Soft Tissue MRSA/MSSA (PCR - Final Radiography Diagnostic Testing: Radiology Impression Extremity Arterial Study 03/07/24 09:32 Interpretation Summary Right JUANITO not obtained. Doppler waveforms of the right ankle moderately diminished at rest. Left JUANITO not obtained. Doppler waveforms of the left ankle severely diminished at rest. Ordering Physician: Jonathan Garcia Referring Physician: Oneyda Gomes Performed By: Tim Rodrigez RVT Physical Exam Narrative GENERAL: cooperative HEENT: Atraumatic; normocephalic EYES; Anicteric, Normal Conjunctiva NECK; supple, normal thyroid, RESPIRATORY: Diminished to auscultation CARDIOVASCULAR: Regular S1 S2, GI: soft, normoactive bowel sounds, : No Renal angle tenderness; EXTREMITIES: Necrotic wound on the plantar surface of the left big toe, MUSCULOSKELETAL: no muscle wasting NEURO: Awake; no lateralizing signs. SKIN: No Rash PSYCH; Flat affect Assessment & Plan Assessment/Plan (1) Infection of great toe: (2) Acute osteomyelitis of left foot: (3) Other specified peripheral vascular diseases: (4) Hypokalemia: PLAN: Plan Patient is a 68-year-old gentleman with history of chronic left toe wound who presented to the emergency department with worsening symptoms 1. Left foot infection with concern for osteomyelitis -X-ray shows soft tissue prominence of the great toe,-Cultures from 03/02/2024 showed Pseudomonas and Enterococcus faecalis patient subsequently started on Zosyn and vancomycin based on sensitivities with consultation placed to podiatry ? ; wound debridement scheduled today ? 03/09/2024; patient underwent excisional debridement left leg wound down to muscle; delayed primary closure left leg wound ; partial first ray amputation left foot. Cultures were sent results pending we will continue current antibiotic therapy 2. Hypokalemia ? Corrected per protocol repeat labs ordered for monitoring 3. Peripheral vascular disease -Follows with Dr. Braden in [place]; Recent left lower extremity intervention with no ongoing plans for any further intervention patient is on dual antiplatelet therapy 4. Valvular heart disease ? With history of bioprosthetic aortic valve replacement 5. Hypertension - Blood pressure controlled, home medications continued with dose adjustment as needed 6. Dyslipidemia -Patient is on statin therapy, continued at home dose 7. Tobacco dependence - Counseled on cessation, offered nicotine patch for tobacco cravings 8. Anemia - Secondary to chronic disorder monitoring H&H and transfuse if patient becomes symptomatic or hemoglobin falls below 7 9. Depression ? Patient is on citalopram 10. Chronic congestive heart failure ? EF unknown patient is on Entresto echo ordered for baseline assessment 11. DVT prophylaxis - On enoxaparin Time spent in the patient's overall evaluation,decision-making process, review of diagnostic data, adjustment of management, discussion with other providers, nursing nursing and ancillary staff involved in patient's care documentation, 35 Minutes Charges/Coding Visit Charges Inpatient E&M: 22252 Subs Hosp L2
[2024-03-09] MEDS: Folic Acid 1 MG Tablet PO (08:45)
[2024-03-09] MEDS: Carvedilol 12.5 MG Tablet PO (08:45)
[2024-03-09] MEDS: Aspirin 81 MG TAB.CHEW PO (08:45)
[2024-03-09] MEDS: Juven (unflavored) Packet 1 PACKET PO (08:45)
[2024-03-09] MEDS: Enoxaparin 40 MG/0.4 ML Syringe SC (08:46)
[2024-03-09] MEDS: amLODIPine 10 MG Tablet PO (08:46)
[2024-03-09] MEDS: SACUBITRIL/VALSARTAN 24/26 MG TABLET 1 EACH PO (08:46)
[2024-03-09] MEDS: hydroCHLOROthiazide 25 MG Tablet PO (08:46)
[2024-03-09] MEDS: Citalopram 10 MG Tablet PO (08:46)
[2024-03-09] MEDS: Ezetimibe 10 MG Tablet PO (08:47)
[2024-03-09] MEDS: Acetaminophen 325 MG Tablet 650 MG PO (08:49)
--- NOTE | 2024-03-09 10:17 | CASEMGMT ---
Addendum entered by Jaimie العراقي 03/09/24 10:29: TC to pt , she states that her and her did not talk about HH. She states she does not have the list with her and she is only coming in if pt is dc'd. Discussed needing to set up HH prior to dc. She states she would like the list electronically. Texted the list to her via [employer] at this time, will await selections. Original Note: Wound nurse updated SHIRAZ BAUTISTA that would like HH for pt. SHIRAZ BAUTISTA into pt room, pt sitting up in bed in no distress. Asked pt if he has decided on a [employer]. Pt states his took the list home and she has chosen the agency. Asked if SHIRAZ BAUTISTA could call his , he states this is fine and to use the agency she chooses.
--- NOTE | 2024-03-09 10:50 | CASEMGMT ---
Discharge Planning Referral sent to [facility] via [facility]. Nanci Avila DC Planning Asst.
[2024-03-09 11:00] VITALS: BP 117/59; PULSE 78; RESP 18; TEMP 36.7; O2SAT 95
--- NOTE | 2024-03-09 11:15 | PCM.PN.ID ---
ID ID: Route of nutrition/ use of supplements: [] Nutritional Intake: [] IV Site: [] Coyle Catheter: [] Patient is alert overall clinically stable. Generally weak. No fevers. Tolerating parenteral antibiotic therapy well. No gastrointestinal distress. No cardiopulmonary symptoms Alert responsive does not appear acutely ill. Vital signs are stable. Heart exam S1-S2 abdomen is soft. Left foot postop dressings are in place. Microbiology data reviewed. Assessment & Plan Assessment/Plan (1) Chronic osteomyelitis of toe of left foot: PLAN: Status postsurgical debridement of the left leg as well as amputation of the infected bone and tissue on the left foot. On parenteral antibiotic postop. Intraoperative culture data pending. Continue current management.
[2024-03-09] MEDS: Clopidogrel Bisulfate 75 MG Tablet PO (11:24)
--- NOTE | 2024-03-09 11:59 | PN_ITS ---
Subjective Subjective 68-year-old male seen 1 day postop left foot partial first ray amputation and delayed primary closure left leg wound. Patient's pain is well-controlled today. Patient denies any fever chills nausea vomiting chest pain calf pain shortness of breath. Patient has no other complaints. Objective Data Objective Data Vital Signs: Vital Signs Temp Pulse Resp BP Pulse Ox O2 Del Method O2 Flow Rate 98.0 F 78 18 117/59 L 95 Room Air 3 03/09/24 11:00 03/09/24 11:00 03/09/24 11:00 03/09/24 11:00 03/09/24 11:00 03/09/24 11:00 03/08/24 09:10 Oxygen Flow Rate (L/min) 3 Oxygen Delivery Method Room Air Weight: 69.4 kg Body Mass Index (BMI) 20.2 Intake & Output: Intake and Output for Last 24 Hours 03/07/24 03/08/24 03/09/24 23:59 23:59 23:59 Intake Total 2550 / 2550 3276.50 / 3276.50 630 / 630 Balance 2550 / 2550 3276.50 / 3276.50 630 / 630 Lab / Micro Data 03/09/24 06:04 03/09/24 06:04 Labs: Laboratory Results - last 24 hr 03/09/24 06:04: WBC 8.6, RBC 3.24 L, Hgb 8.4 L, Hct 27.1 L, MCV 83.6, MCH 25.9 L , MCHC 31.0 L, RDW Std Deviation 55.5 H, RDW Coeff of Judie 18.2 H, Plt Count 297, MPV 9.9, Immature Gran % (Auto) 0.200, Neut % (Auto) 61.7, Lymph % (Auto) 20.7, [place] % (Auto) 11.9 H, Eos % (Auto) 5.2 H, Baso % (Auto) 0.3, Absolute Neuts (auto) 5.3, Absolute Lymphs (auto) 1.78, Nucleated RBC % 0, Sodium 138, Potassium 3.5, Chloride 107, Carbon Dioxide 27.0, Anion Gap 4 L, BUN 19 H, C reatinine 0.63 L, Estim Creat Clear Calc 89.16, Est GFR (MDRD) Af Amer 164, Est GFR (MDRD) Non-Af 135, BUN/Creatinine Ratio 30.2 H, Glucose 94, Calcium 8.5, C- React Prot Ext Range 7.81 H Micro: Microbiology 03/08/24 09:13 Wound - Leg, Left Gram Stain - Final 03/08/24 09:13 Wound - Leg, Left Wound Culture - Preliminary GNR Poss Pseudomonas sp Gram positive organism 03/06/24 19:00 Wound - Left Foot Gram Stain - Final 03/06/24 19:00 Wound - Left Foot Wound Culture - Preliminary Gram positive ignacio 03/06/24 19:00 Wound - Left Foot Anaerobic Culture - Preliminary 03/08/24 09:13 Bone - Great Toe Gram Stain - Final 03/06/24 10:35 Blood Culture (Wb) - Left Forearm Blood Culture - Preliminary No growth in 48 hours. 03/06/24 19:00 Wound - Leg, Left Skin and Soft Tissue MRSA/MSSA (PCR - Final Physical Exam Narrative Neurovascular status unchanged. Partial first ray amputation site well-approximated with intact sutures. Well- approximated estimated intact incision to the left leg. No sign DVT. Const alert and oriented x3 Assessment & Plan Assessment/Plan (1) Non-pressure chronic ulcer of other part of left foot with necrosis of bone: PLAN: Exam performed Cultures pending left leg wound demonstrates possible Pseudomonas with gram- positive organism. Patient previously had Pseudomonas and Enterococcus faecalis aminopenicillins and fluoroquinolones. Patient heel weightbearing in surgical shoe assisted by walker left lower extremity. Patient to be discharged with home health care dressing changes 2-3 times a week Betadine Adaptic 4 x 4's Kerlix and Tubigrip or similar compression stocking Patient will follow-up with me 1 week postop in the wound care center Will discharge patient on p.o. antibiotics as left partial first ray amputation was definitive for infection clearance. Will use previous cultures and sensitivities to manage care for the leg wound. Will plan for Augmentin and ciprofloxacin. Will continue to follow cultures and sensitivity on an outpatient basis upon discharge. (2) Chronic osteomyelitis of toe of left foot: (3) Infection of great toe: (4) Acute osteomyelitis of left foot: (5) Other specified peripheral vascular diseases:
--- NOTE | 2024-03-09 12:25 | WOUNDNOTE ---
wound photo: left medial lower leg
--- NOTE | 2024-03-09 12:25 | WOUNDNOTE ---
wound photo: left foot
--- NOTE | 2024-03-09 12:26 | WOUNDNOTE ---
wound photo: left anterior lower leg
--- NOTE | 2024-03-09 12:40 | DS.PCM_ITS ---
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 Patient previously had Pseudomonas and Enterococcus faecalis aminopenicillins and fluoroquinolones. Patient heel weightbearing in surgical shoe assisted by walker left lower extremity. Patient to be discharged with home health care dressing changes 2-3 times a week Betadine Adaptic 4 x 4's Kerlix and Tubigrip or similar compression stocking Patient will follow-up with me 1 week postop in the wound care center Will discharge patient on p.o. antibiotics as left partial first ray amputation was definitive for infection clearance. Will use previous cultures and sensitivities to manage care for the leg wound. Will plan for Augmentin and ciprofloxacin. Will continue to follow cultures and sensitivity on an outpatient basis upon discharge. (2) Chronic osteomyelitis of toe of left foot: Status: Acute Code(s): M86.672 - Other chronic osteomyelitis, left ankle and foot (3) Infection of great toe: Status: Acute Code(s): L08.9 - Local infection of the skin and subcutaneous tissue, unspecified (4) Acute osteomyelitis of left foot: Status: Acute Code(s): M86.172 - Other acute osteomyelitis, left ankle and foot (5) Other specified peripheral vascular diseases: Status: Acute Code(s): I73.89 - Other specified peripheral vascular diseases Medications at Discharge Home Medications amlodipine 10 mg tablet 10 mg PO DAILY blood pressure 03/02/24 atorvastatin 40 mg tablet 40 mg PO DAILY 03/02/24 carvedilol 12.5 mg tablet 12.5 mg PO BID blood pressure 03/02/24 citalopram 10 mg tablet 10 mg PO DAILY depression 03/02/24 clopidogrel 75 mg tablet 75 mg PO DAILY blood thinner 03/02/24 ezetimibe 10 mg tablet 10 mg PO DAILY cholesterol 03/02/24 folic acid 1 mg tablet 1 mg PO DAILY vitamin 03/02/24 hydrochlorothiazide 25 mg tablet 25 mg PO DAILY blood pressure 03/02/24 hydrocodone-acetaminophen 5-325mg 5mg-325mg 1 tab PO Q12H PRN pain 03/02/24 sacubitril 24 mg-valsartan 26 mg tablet (Entresto) 1 tab PO BID blood pressure 03/02/24 aspirin 81 mg chewable tablet 1 tab PO DAILY blood thinner 03/06/24 Hospital Course Summary of Care Provided Hospital Course: Patient admitted for left diabetic foot infection with exposed left hallux proximal phalanx. And dehisced surgical site to left leg wound. Patient underwent partial first ray amputation and operative debridement of leg wound with delayed primary closure 03/08/2024. Aggressive debridement was performed at this at that time residual tissue appeared healthy granular devoid of deep infection. Per infectious disease recommend discharge on no antibiotics as patient has multiple medical comorbidities and per debridement and amputation definitive infection clearance noted. Patient will maintain heel weightbearing surgical shoe assisted by walker follow-up in the wound care center next week. Physical Exam Narrative Neurovascular status unchanged. Partial first ray amputation site well-approximated with intact sutures. Well- approximated estimated intact incision to the left leg. No sign DVT. Const alert and oriented x3 Weight / BMI Weight Weight: 69.4 kg Body Mass Index (BMI) 20.2 ABG / Lab / Microbiology Data 03/09/24 06:04 03/09/24 06:04 Laboratory: Laboratory Results - last 24 hr 03/09/24 06:04: WBC 8.6, RBC 3.24 L, Hgb 8.4 L, Hct 27.1 L, MCV 83.6, MCH 25.9 L , MCHC 31.0 L, RDW Std Deviation 55.5 H, RDW Coeff of Judie 18.2 H, Plt Count 297, MPV 9.9, Immature Gran % (Auto) 0.200, Neut % (Auto) 61.7, Lymph % (Auto) 20.7, [place] % (Auto) 11.9 H, Eos % (Auto) 5.2 H, Baso % (Auto) 0.3, Absolute Neuts (auto) 5.3, Absolute Lymphs (auto) 1.78, Nucleated RBC % 0, Sodium 138, Potassium 3.5, Chloride 107, Carbon Dioxide 27.0, Anion Gap 4 L, BUN 19 H, C reatinine 0.63 L, Estim Creat Clear Calc 89.16, Est GFR (MDRD) Af Amer 164, Est GFR (MDRD) Non-Af 135, BUN/Creatinine Ratio 30.2 H, Glucose 94, Calcium 8.5, C- React Prot Ext Range 7.81 H Microbiology: Microbiology 03/08/24 09:13 Wound - Leg, Left Gram Stain - Final 03/08/24 09:13 Wound - Leg, Left Wound Culture - Preliminary GNR Poss Pseudomonas sp Gram positive organism 03/06/24 19:00 Wound - Left Foot Gram Stain - Final 03/06/24 19:00 Wound - Left Foot Wound Culture - Preliminary Gram positive ignacio 03/06/24 19:00 Wound - Left Foot Anaerobic Culture - Preliminary 03/08/24 09:13 Bone - Great Toe Gram Stain - Final 03/06/24 10:35 Blood Culture (Wb) - Left Forearm Blood Culture - Preliminary No growth in 48 hours. 03/06/24 19:00 Wound - Leg, Left Skin and Soft Tissue MRSA/MSSA (PCR - Final Meaningful Use Info Meaningful Use Meaningful Use Diagnoses (Choose all that apply): None applicable Ischemic Stroke Statin Dosing Therapy Reference: STATIN DOSE THERAPY REFERENCE: * Patients > 75 years receive moderate or high dose statin therapy. * Patients 75 years or YOUNGER should receive HIGH intensity statin dose unless contraindicated. You will be required to document reason for non-treatment if statin daily dose does not meet guidelines. HIGH DOSE STATIN THERAPY DAILY Atorvastatin > than or = to 40 mg Rosuvastatin > than or = to 20 mg Amlodipine + Atorvastatin > than or = to 2.5/40 mg Ezetimibe + Simvastatin 10/80 mg Simvastatin 80mg Discharge Plan Admission Admit Date/Time: 03/06/24 14:58 Attending Provider: Eron Willis Primary Care Provider: Bridgette Gomes NP Consulting Providers: Greg Carroll; Radha Powell; Chai Carlos Instructions Patient Instructions: Post-Op Tips: Foot Additional Instructions / Restrictions: Dressing be changed by home health care 2-3 times a week left foot and lower extremity. Patient maintain heel weightbearing in surgical shoe assisted by walker to left lower extremity. Patient to follow-up in wound care center in 1 week for continued outpatient management. Patient take prescriptions as directed. Discharge Orders/Prescriptions Prescriptions: Continued atorvastatin 40 mg tablet 40 mg PO DAILY carvedilol 12.5 mg tablet 12.5 mg PO BID citalopram 10 mg tablet 10 mg PO DAILY hydrocodone-acetaminophen 5-325 mg tablet 1 tab PO Q12H PRN (Reason: pain) clopidogrel 75 mg tablet 75 mg PO DAILY amlodipine 10 mg tablet 10 mg PO DAILY folic acid 1 mg tablet 1 mg PO DAILY hydrochlorothiazide 25 mg tablet 25 mg PO DAILY ezetimibe 10 mg tablet 10 mg PO DAILY Entresto 24-26 mg tablet 1 tab PO BID aspirin 81 mg tablet,chewable 1 tab PO DAILY Discontinued cefdinir 300 mg capsule 300 mg PO BID doxycycline hyclate 100 mg tablet 100 mg PO BID Referrals / Follow Up: Jonathan Garcia DPM [Med Staff - Active Staff] - In 1 Week (wound care center) Bridgette Gomes NP, MANAGER [facility] [Primary Care Provider] - Disposition Disposition (needs filled in before D/C Order can be placed): Home Health Service
--- NOTE | 2024-03-09 13:40 | RAD_ITS ---
HISTORY: left foot amputation. TECHNIQUE: XR Foot 2 Views. COMPARISON: 03/06/2024. FINDINGS: BONES : Amputation of the first metatarsal distally and the first toe. Nondisplaced fracture of the fifth proximal phalanx again seen. Calcaneal enthesopathy present. JOINTS: No dislocation. SOFT TISSUES: Expected postoperative edema and air. RAD/Foot 2 Views IMPRESSION: Satisfactory alignment of the left foot status post partial amputation of the first ray. Unchanged alignment of nondisplaced fifth proximal phalanx fracture. Electronically Signed: Disha Lr MD at 8:05 EDT ,
--- NOTE | 2024-03-09 14:18 | CASEMGMT ---
SHIRAZ BAUTISTA notified of dc order in. Reviewed dc instructions. SHIARZ BAUTISTA noted that [facility] can accept pt for care to start on Thursday. SHIRAZ BAUTISTA into pt room, pt present and states they have been doing dressing changes for pt and she feels comfortable with this to continue. She and pt are aware that [facility] cannot start until Thursday. They prefer to continue with the first choice of agency to start on Thursday. Pt home address is [address] [place] [address]. Noted no atb per dc summary. Pt and feel ready for dc and have assistance for pt to enter home as pt has 21 steps to enter. Noted pt is heel wt bearing only. Pt declines therapy but is agreeable to SN. No further needs, pt ready for dc.
--- NOTE | 2024-03-09 15:45 | CASEMGMT ---
Addendum entered by Nanci Avila 03/09/24 16:17: Fax confirmation rec'd. Nanci Avila DC Planning Asst. Original Note: Discharge Planning Discharge instructions and HH order faxed to N. Nanci Avila DC Planning Asst.
== END 2024-03-09 14:53 | disposition home health service (06) | DRG 475 ==
LOC: ED 14:52 → MS3 15:06
PROVIDERS: Family Medicine; Internal Medicine; Podiatrist; Admitting Provider Podiatrist; Emergency Provider Emergency Medicine; PCP Nurse Practitioner Family; Visit Provider Internal Medicine
PROC: 0Y6N0Z9 Detachment at Left Foot, Partial 1st Ray, Open Approach (ICD-10-PCS; principal; 2024-03-08 07:15)
DX: M86.172 Other acute osteomyelitis, left ankle and foot (principal); T81.31XA Disruption of external operation (surgical) wound, not elsewhere classified, initial encounter; I50.32 Chronic diastolic (congestive) heart failure; I11.0 Hypertensive heart disease with heart failure; D63.8 Anemia in other chronic diseases classified elsewhere; J44.9 Chronic obstructive pulmonary disease, unspecified; F32.A Depression, unspecified; I69.398 Other sequelae of cerebral infarction; I73.9 Peripheral vascular disease, unspecified; Z95.3 Presence of xenogenic heart valve; L97.524 Non-pressure chronic ulcer of other part of left foot with necrosis of bone; E87.6 Hypokalemia; F17.200 Nicotine dependence, unspecified, uncomplicated; I25.10 Atherosclerotic heart disease of native coronary artery without angina pectoris; E78.5 Hyperlipidemia, unspecified; H53.40 Unspecified visual field defects; Z89.421 Acquired absence of other right toe(s); M86.672 Other chronic osteomyelitis, left ankle and foot; Y83.8 Other surgical procedures as the cause of abnormal reaction of the patient, or of later complication, without mention of misadventure at the time of the procedure; B96.5 Pseudomonas (aeruginosa) (mallei) (pseudomallei) as the cause of diseases classified elsewhere; B95.2 Enterococcus as the cause of diseases classified elsewhere; Z79.82 Long term (current) use of aspirin; Z79.02 Long term (current) use of antithrombotics/antiplatelets
CPT/HCPCS: 36415; 71045; 73590; 73620; 73630; 80048; 80053; 80202; 83036; 83605; 83735; 84100; 85025; 85610; 85652; 85730; 86140; 87015; 87040; 87070; 87075; 87077; 87102; 87116; 87184; 87186; 87205; 87206; 87640; 88305; 88311; 93005; 93306; 93923; 97802; 99284; J7040; J7050; Q9957; A4216; C8929; J2405

== ENCOUNTER 2024-03-15 08:15 | Outpatient (RCR) | payer MEDICARE, SELFPAY ==
[2024-03-02 13:27] VITALS: BP 151/72; PULSE 89; RESP 18; TEMP 36; BMI 20.2
--- NOTE | 2024-03-02 17:04 | PCM.WC.HP ---
History of Present Illness Date of Service: 03/02/24 Chief Complaint: Left foot ulceration and exposed bone. History of Wound: Patient has been dealing with a chronic wound for approximately 1 month Progress of Wound: Mr. Sanford is a 68-year-old male presenting to the wound care center today for follow-up evaluation of full-thickness ulceration to the left great toe and left leg. Patient is well-known to the office of Dr. Whitehead his thickener operator has been treating his toe wound and referred the patient to the wound care center for evaluation. Patient was seen by Dr. Braden his vascular surgeon who performed intervention of the left lower extremity and now has a surgical wound dehiscence to the proximal calf area of the left lower extremity. Patient is on oral antibiotics Keflex and doxycycline. He has been doing home dressing changes but states malodor has been getting worse. He is at the wound care center today for evaluation and treatment by Dr. Anderson. He denies trauma. Denies constitutional symptoms. No other complaints at this time. [facility] Home Medications ?Medication ?Instructions ?Recorded ?Last Taken ?Type amlodipine 10 mg tablet 10 mg PO 03/02/24 Unknown History atorvastatin 40 mg tablet 40 mg PO 03/02/24 Unknown History carvedilol 12.5 mg tablet 12.5 mg PO BID 03/02/24 Unknown History cefdinir 300 mg capsule 300 mg PO BID 03/02/24 Unknown History citalopram 10 mg tablet 10 mg PO 03/02/24 Unknown History clopidogrel 75 mg tablet 75 mg PO DAILY 03/02/24 Unknown History doxycycline hyclate 100 mg tablet 100 mg PO BID 03/02/24 Unknown History ezetimibe 10 mg tablet 10 mg PO 03/02/24 Unknown History folic acid 1 mg tablet 1 mg PO DAILY 03/02/24 Unknown History hydrochlorothiazide 25 mg tablet 25 mg PO DAILY 03/02/24 Unknown History hydrocodone-acetaminophen 5-325mg 1 tab PO 03/02/24 Unknown History 5mg-325mg ondansetron HCl 4 mg tablet 4 mg PO Q8H PRN PRN nausea/vomiting 03/02/24 Unknown History sacubitril 24 mg-valsartan 26 mg 1 tab PO BID 03/02/24 Unknown History tablet (Entresto) Allergy/AdvReac Type Severity Reaction Status Date / Time No Known Allergies Allergy Verified 03/02/24 13:23 Social History Smoking Status: Light Smoker (<10/day) Vital Signs Vital Signs Vital Signs: 03/02/24 13:27 Temperature 96.8 F L Temperature Source Temporal Pulse Rate 89 Respiratory Rate 18 Blood Pressure 151/72 H Blood Pressure Mean 98 Blood Pressure Source Monitor Blood Pressure Position Semi-Fowlers Blood Pressure Location Left Arm Oxygen Delivery Method Room Air Weight Weight: 69.4 kg Body Mass Index (BMI) 20.2 Physical Exam Narrative Vascular: DP and PT pulses are faint and palpable. CFT is brisk. Skin temperature is warm to warm from proximal ankle to distal digits. Mild focal increase appreciated to the left calf and left great toe. Nonpitting edema appreciated left extremity. Neurological: Light touch intact. Patient response to painful stimuli. Dermatological: Full-thickness ulceration to the left calf measuring 5.0 x 1.3 x 2.5 cm. There is evidence of exposed muscle and surgical wound dehiscence. Malodor is appreciated. Negative probe to bone. Full-thickness ulceration to the left hallux measuring 2.6 x 3.0 x 0.4 cm. Positive probe to bone. Malodor. Excisional debridement down to and including subcutaneous tissue, fascia and muscle to the left leg at the level of the calf with a number 5 mm dermal curette without incident. Predebridement measurement is 4.5 x 1.0 x 2.0 cm. Postdebridement measurement is 5.0 x 1.3 x 2.6 cm. Excisional debridement down to and including subcutaneous tissue, fascia, muscle and bone to the left hallux with a number 5 mm dermal curette without incident. Predebridement measurement was eschar. Postdebridement measurement is 2.6 x 3.0 x 0.4 cm. Musculoskeletal: Muscle strength is 5 and 5 in all quadrants bilateral. Pain on palpation to the left calf and hallux. No pain with calf pressure. Debridement Note Debridement Note Debridement Free Text: Excisional debridement down to and including subcutaneous tissue, fascia and muscle to the left leg at the level of the calf with a number 5 mm dermal curette without incident. Predebridement measurement is 4.5 x 1.0 x 2.0 cm. Postdebridement measurement is 5.0 x 1.3 x 2.6 cm. Excisional debridement down to and including subcutaneous tissue, fascia, muscle and bone to the left hallux with a number 5 mm dermal curette without incident. Predebridement measurement was eschar. Postdebridement measurement is 2.6 x 3.0 x 0.4 cm. Post-Debridement Measurements and Additional Note: Post-Debridement Measurements/Treatment WC - Nurse 1 - General Ulcer Assessment Start: 03/02/24 13:19 Freq: Status: Active Protocol: LUIS Activity Type Activity Date Activity User E-sign Co-sign Detail Recorded Client Recorded Date Recorded By Document 03/02/24 13:27 KW ' 03/02/24 13:53 KW 03/02/24 13:27 WC - Today's Visit Information Type of service Initial Visit Arrival Mode Ambulatory,Cane Accompanied by Patient Identification Verified (Name & Yes ) Height and Weight Height 6 ft 1 in Weight 69.4 kg Weight in Pounds 153.0 lbs Weight Measurement Method Estimated by Patient Body Mass Index (BMI) 20.2 BMI Classification Normal BSA - Derek 1.92 Vital Signs Temperature (97.8 F-99.1 F) 96.8 F L Temperature Source Temporal Pulse Rate (60-100) 89 Pulse Location Monitor Respiratory Rate (12-18) 18 Respiratory rate source Observation Oxygen Delivery Method Room Air Blood Pressure (90/60-120/80) 151/72 H Blood Pressure Mean 98 Source Monitor Position Semi-Fowlers Blood Pressure Location Left Arm History Since Last Visit- (Skip if this is Patient's initial visit) Left Footwear Surgical Shoe with pressure relief insole Right Footwear Surgical Shoe with pressure relief insole Pain Scale: 0-10 Numeric Is Patient Pain Free? Yes Communication Assessment Preferred language Nigerien Associate Software Application Engineer Required No Able to Read Yes Able to Write Yes Right Hearing Abillity Normal Left Hearing Abillity Normal Visual Assistive Devices Glasses Teaching Assessment Preferences Verbal,Written, Demonstration Barriers to Learning None Readiness To Learn Excellent Willingness to Engage in Self Management High Activies Readiness to Engage in Self Management High Activities Anxiety Level Calm Cooperation Cooperative Perception Coherent Interest in Health Problem Asks Questions Education Importance Acknowledges Need Does Patient Smoke tobacco or other Yes substances Smoking Status Light Smoker (< 10/day) Is Patient Diabetic No Functional Assessment Recent Decline in Ability to Perform Denies Any Declines Culture/Shinto/Senior Engineering Associate Cultural/Shinto Needs that may affect No Treatment Plan Would you allow our hospital natural history collections curator to No meet you for the purpose of spiritual/ emotional support? Senior Engineering Associate to contact place of uatsdin No WC - Nurse 1 - General Ulcer Measurement Start: 03/02/24 13:19 Freq: Status: Active Protocol: Activity Type Activity Date Activity User E-sign Co-sign Detail Recorded Client Recorded Date Recorded By Document 03/02/24 13:27 KW ' 03/02/24 13:53 KW 03/02/24 13:27 Wound Center Nurse 1 #2 LT HALLUX -Current Size (cm) - Length 2.7 -Current Size (cm) - Width 2.6 -Current Size (cm) - Depth 0 -Total Square Cm 7.02 -Date of Last Picture (Recall this 03/02/24 field) -Undermining/Tunneling Starts (O'clock 12 ) -Undermining/Tunneling Ends (O'clock) 12 -Maximum Distance (cm) 0.5 -Circular Undermining Yes -Exudate Amt Small -Exudate Type Serosanguineous -Wound Margin Distinct, Outline Attached -Necrosis Amt Large (67-100%) -Necrotic Tissue Type Eschar -Texture (Becca-wound Skin Appearance) Assessed -Moisture (Becca-wound Skin Appearance) Assessed -Color (Becca-wound Skin Appearance) Assessed -Temperature (Becca-wound Skin No Abnormality Appearance) (Pt Warm) -Tenderness on Palpation (Becca-wound No Skin Appearance) -Ulcer Cleansing Soap and Water -Foul Odor after Cleansing Yes -Anesthetic Used 4% Lidocaine Solution #1 LT MED LE -Current Size (cm) - Length 6.4 -Current Size (cm) - Width 1.1 -Current Size (cm) - Depth 2 -Total Square Cm 7.04 -Date of Last Picture (Recall this 03/02/24 field) -Undermining/Tunneling Yes -Undermining/Tunneling Starts (O'clock 12 ) -Undermining/Tunneling Ends (O'clock) 12 -Maximum Distance (cm) 1.5 -Circular Undermining Yes -Exudate Amt Medium -Exudate Type Serosanguineous -Wound Margin Distinct, Outline Attached -Granulation Amt Small (1-33%) -Granulation Quality [place] -Necrosis Amt Large (67-100%) -Necrotic Tissue Type Adherent Slough -Texture (Becca-wound Skin Appearance) Assessed -Moisture (Becca-wound Skin Appearance) Assessed -Color (Becca-wound Skin Appearance) Assessed, Erythema -Temperature (Becca-wound Skin No Abnormality Appearance) (Pt Warm) -Tenderness on Palpation (Becca-wound No Skin Appearance) -Ulcer Cleansing Soap and Water -Foul Odor after Cleansing Yes -Anesthetic Used 4% Lidocaine Solution Left Calf (cm) 35 Left Ankle (cm) 20.5 - Nurse 2 - General Ulcer CM Notes Start: 03/02/24 13:19 Freq: Status: Active Protocol: Activity Type Activity Date Activity User E-sign Co-sign Detail Recorded Client Recorded Date Recorded By Document 03/02/24 14:03 [facility] 03/02/24 14:19 03/02/24 14:03 Wound Center Nurse 2 #2 HALLUX -Time 14:04 -Correct Patient Yes -Correct Side, Site, Position Yes -Correct Procedure Yes -Procedure Performed Yes -Type of Procedure Debridement -Clinical Debridement Bone -Tissue Removed Non-viable tissue -Post Debridement (cm) - Length 2.6 -Post Debridement (cm) - Width 3.0 -Post Debridement (cm) - Depth 0.4 -Total Square (Post) (cm) 7.80 -Area of Debridement (cm) - Length 2.6 -Area of Debridement (cm) - Width 3.0 -Total Square (Area) (cm) 7.80 -Tunneling No -Undermining/Tunneling No -Circular Undermining No -Wound/Ulcer Outcome Not Healed -Ulcer Cleansing Rinsed/ Irrigated with Saline -Foul Odor after Cleansing No -Bioengineered Tissue No -Bleeding Controlled with Pressure -Treatment Response Procedure Tolerated Well -Debridement - Bone, 1st 20sq cm Yes #1 LT MED LE -Time 14:06 -Correct Patient Yes -Correct Side, Site, Position Yes -Correct Procedure Yes -Procedure Performed Yes -Type of Procedure Debridement -Clinical Debridement Muscle / Fascia -Tissue Removed Muscle -Post Debridement (cm) - Length 5.0 -Post Debridement (cm) - Width 1.3 -Post Debridement (cm) - Depth 2.6 -Total Square (Post) (cm) 6.50 -Area of Debridement (cm) - Length 5.0 -Area of Debridement (cm) - Width 1.3 -Total Square (Area) (cm) 6.50 -Tunneling No -Undermining/Tunneling No -Circular Undermining No -Wound/Ulcer Outcome Not Healed -Ulcer Cleansing Rinsed/ Irrigated with Saline -Foul Odor after Cleansing No -Bioengineered Tissue No -Bleeding Controlled with Pressure -Treatment Response Procedure Tolerated Well -Debridement - Muscle / Fascia, 1st Yes 20sq cm Pain Scale: 0-10 Numeric Is Patient Pain Free? Yes Assessment/Plan Assessment/Plan (1) Non-pressure chronic ulcer of other part of left foot with necrosis of bone: CODE(S): L97.524 - Non-pressure chronic ulcer of other part of left foot with necrosis of bone PLAN: Patient was examined and evaluated. All findings were discussed with the patient. All questions were answered to the patient's satisfaction. Excisional debridement down to and including subcutaneous tissue, fascia and muscle to the left leg at the level of the calf with a number 5 mm dermal curette without incident. Predebridement measurement is 4.5 x 1.0 x 2.0 cm. Postdebridement measurement is 5.0 x 1.3 x 2.6 cm. Excisional debridement down to and including subcutaneous tissue, fascia, muscle and bone to the left hallux with a number 5 mm dermal curette without incident. Predebridement measurement was eschar. Postdebridement measurement is 2.6 x 3.0 x 0.4 cm. Culture was taken out of the calf ulceration sent to microbiology for culture and sensitivity. Patient will continue taking the oral antibiotics that he was prescribed by his thickener operator. Long discussion regarding the concern for severity of infection and recommended admission to the hospital for optimization and intervention to the left lower extremity. At this time the patient will be reaching out to Dr. Braden for recommendations and to see if Dr. Braden would prefer the patient to return to [place] for admission if not then the patient was instructed to present to [facility] on Thursday for admission and consult Dr. Anderson for intervention. Left lower extremity was dressed with Dakin's 4 x 4's to the calf ulceration, Betadine soaked gauze to the hallux dry sterile dressing and Tubigrip wrap. Patient's educated on dressing changes. Follow-up at the wound care center with Dr. Anderson in 1 week. (2) Non-pressure chronic ulcer of other part of left lower leg with necrosis of muscle: CODE(S): L97.823 - Non-pressure chronic ulcer of other part of left lower leg with necrosis of muscle (3) Other specified peripheral vascular diseases: CODE(S): I73.89 - Other specified peripheral vascular diseases (4) Acute osteomyelitis of left foot: CODE(S): M86.172 - Other acute osteomyelitis, left ankle and foot
[2024-03-15 08:39] VITALS: BP 139/68; PULSE 84; RESP 18; TEMP 37; BMI 20.2
--- NOTE | 2024-03-15 08:55 | PN.PCM_ITS ---
History of Present Illness Date of Service: 03/15/24 Chief Complaint: Left foot ulceration and exposed bone. History of Wound: Patient has been dealing with a chronic wound for approximately 1 month Progress of Wound: Patient 1 week postop from left partial first ray amputation and delayed primary closure left leg wound. Patient denies any fever chills nausea vomit chest pain calf pain shortness of breath. Patient denies any acute pain today. Patient resting comfortably. Patient is using surgical shoe with heel weightbearing assisted by walker for transfer purposes within his home. No other complaints. Objective Data Objective Data Vital Signs: Vital Signs Temp Pulse Resp BP O2 Del Method 98.6 F 84 18 139/68 H Room Air 03/15/24 08:39 03/15/24 08:39 03/15/24 08:39 03/15/24 08:39 03/02/24 13:27 Oxygen Delivery Method Room Air Weight: 69.4 kg Body Mass Index (BMI) 20.2 Lab / Micro Data Micro: Microbiology 03/02/24 14:10 Wound Abcess - Other Gram Stain - Final 03/02/24 14:10 Wound Abcess - Other Wound Culture - Final Pseudomonas aeruginosa Enterococcus faecalis 03/02/24 14:10 Wound Abcess - Other Anaerobic Culture - Final No anaerobic bacteria isolated. Physical Exam Narrative Neurovascular status unchanged. Incisional site left leg well-approximated with intact sutures. Incisional left foot well-approximated with intact sutures. No acute signs of infection. No sign DVT bilaterally. 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 ) Arrival Mode Ambulatory,Cane Ambulatory Transfer Assistance None Accompanied by Patient Identification Verified (Name & Yes Yes ) Patient Requires Transmission-Based No Precautions Height and Weight Height 6 ft 1 in Weight 69.4 kg Weight in Pounds 153.0 lbs Weight Measurement Method Estimated by Patient Body Mass Index (BMI) 20.2 20.2 BMI Classification Normal Normal BSA - Derek 1.92 Vital Signs Temperature (97.8 F-99.1 F) 96.8 F L 98.6 F Temperature Source Temporal Temporal Pulse Rate (60-100) 89 84 Pulse Location Monitor Monitor Respiratory Rate (12-18) 18 18 Respiratory rate source Observation Observation Oxygen Delivery Method Room Air Blood Pressure (90/60-120/80) 151/72 H 139/68 H Blood Pressure Mean (mm Hg) 98 91 Source Monitor Monitor Position Semi-Fowlers Semi-Fowlers Blood Pressure Location Left Arm Left Arm History Since Last Visit- (Skip if this is Patient's initial visit) Have you changed medications since your No last visit? Any new allergies or adverse reactions No Had a fall/change in ADL's that may No increase risk of falls Signs or symptoms of abuse and/or No neglect since last visit Have you been in the hospital since your No last visit? Has dressing in place as prescribed Yes Has compression in place as prescribed Yes Has offloadiing in place as prescribed No Experienced any changes in pain level or No management Left Footwear Surgical Shoe with pressure relief insole Right Footwear Surgical Shoe with pressure relief insole Pain Scale: 0-10 Numeric Is Patient Pain Free? 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 Required No Able to Read Yes Able to Write Yes Right Hearing Abillity Normal Left Hearing Abillity Normal Visual Assistive Devices Glasses Teaching Assessment Preferences Verbal,Written, Demonstration Barriers to Learning None Readiness To Learn Excellent Willingness to Engage in Self Management High Activies Readiness to Engage in Self Management High Activities Anxiety Level Calm Cooperation Cooperative Perception Coherent Interest in Health Problem Asks Questions Education Importance Acknowledges Need Does Patient Smoke tobacco or other Yes substances Smoking Status Light Smoker (< 10/day) Is Patient Diabetic No Functional Assessment Recent Decline in Ability to Perform Denies Any Declines 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 Apparel Sales Associate to contact place of congregational No WC - Nurse 1 - General Ulcer Measurement Start: 03/02/24 13:19 Freq: Status: Active Protocol: Activity Type Activity Date Activity User E-sign Co-sign Detail Recorded Client Recorded Date Recorded By Document 03/02/24 13:27 KW ' 03/02/24 13:53 KW Document 03/15/24 08:39 RB wound 03/15/24 08:43 RB 03/02/24 03/15/24 13:27 08:39 Wound Center Nurse 1 #2 LT HALLUX -Combined with other wound No -Current Size (cm) - Length 2.7 0.1 -Current Size (cm) - Width 2.6 0.1 -Current Size (cm) - Depth 0 0.1 -Total Square Cm 7.02 0.01 -Date of Last Picture (Recall this 03/02/24 field) -Photo Taken Yes -Tunneling No -Undermining/Tunneling No -Undermining/Tunneling Starts (O'clock 12 ) -Undermining/Tunneling Ends (O'clock) 12 -Maximum Distance (cm) 0.5 -Circular Undermining Yes No -Exudate Amt Small Large -Exudate Type Serosanguineous Serosanguineous -Wound Margin Distinct, Distinct, Outline Outline Attached Attached -Granulation Amt Medium (34-66%) -Granulation Quality [place] -Slough/Fibrin Yes -Necrosis Amt Large (67-100%) Small (1-33%) -Necrotic Tissue Type Eschar Adherent Slough -Structure Exposed N/A -Texture (Becca-wound Skin Appearance) Assessed Assessed -Moisture (Becca-wound Skin Appearance) Assessed Assessed -Color (Becca-wound Skin Appearance) Assessed Assessed -Temperature (Becca-wound Skin No Abnormality No Abnormality Appearance) (Pt Warm) (Pt Warm) -Tenderness on Palpation (Becca-wound No No Skin Appearance) -Ulcer Cleansing Soap and Water Wound Cleanser -Foul Odor after Cleansing Yes No -Anesthetic Used 4% Lidocaine Solution -Wound Comment(s) 7 sutures intact , incision well approximated #1 LT MED LE -Combined with other wound No -Current Size (cm) - Length 6.4 0.1 -Current Size (cm) - Width 1.1 0.1 -Current Size (cm) - Depth 2 0.1 -Total Square Cm 7.04 0.01 -Date of Last Picture (Recall this 03/02/24 field) -Photo Taken Yes -Tunneling No -Undermining/Tunneling Yes No -Undermining/Tunneling Starts (O'clock 12 ) -Undermining/Tunneling Ends (O'clock) 12 -Maximum Distance (cm) 1.5 -Circular Undermining Yes No -Exudate Amt Medium Medium -Exudate Type Serosanguineous Serosanguineous -Wound Margin Distinct, Distinct, Outline Outline Attached Attached -Granulation Amt Small (1-33%) Medium (34-66%) -Granulation Quality [place] -Slough/Fibrin Yes -Necrosis Amt Large (67-100%) Medium (34-66%) -Necrotic Tissue Type Adherent Slough Adherent Slough -Structure Exposed N/A -Texture (Becca-wound Skin Appearance) Assessed Assessed -Moisture (Becca-wound Skin Appearance) Assessed Assessed -Color (Becca-wound Skin Appearance) Assessed, Assessed Erythema -Temperature (Becca-wound Skin No Abnormality No Abnormality Appearance) (Pt Warm) (Pt Warm) -Tenderness on Palpation (Becca-wound No No Skin Appearance) -Ulcer Cleansing Soap and Water Wound Cleanser -Foul Odor after Cleansing Yes No -Anesthetic Used 4% Lidocaine Solution -Wound Comment(s) 13 sutures intact incision well approximated Lower Limb Edema Present Yes Left Calf (cm) 35 32.5 Left Ankle (cm) 20.5 21.5 - Nurse 2 - General Ulcer CM Notes Start: 03/02/24 13:19 Freq: Status: Active Protocol: Activity Type Activity Date Activity User E-sign Co-sign Detail Recorded Client Recorded Date Recorded By Document 03/02/24 14:03 [facility] 03/02/24 14:19 Document 03/15/24 08:52 0000 03/15/24 08:53 03/02/24 03/15/24 14:03 08:52 Wound Center Nurse 2 #2 LT HALLUX -Time 14:04 -Correct Patient Yes No -Correct Side, Site, Position Yes No -Correct Procedure Yes No -Procedure Performed Yes No -Type of Procedure Debridement -Clinical Debridement Bone -Tissue Removed Non-viable tissue -Post Debridement (cm) - Length 2.6 -Post Debridement (cm) - Width 3.0 -Post Debridement (cm) - Depth 0.4 -Total Square (Post) (cm) 7.80 -Area of Debridement (cm) - Length 2.6 -Area of Debridement (cm) - Width 3.0 -Total Square (Area) (cm) 7.80 -Tunneling No -Undermining/Tunneling No -Circular Undermining No -Wound/Ulcer Outcome Not Healed Amputation -Ulcer Cleansing Rinsed/ Irrigated with Saline -Foul Odor after Cleansing No -Bioengineered Tissue No -Bleeding Controlled with Pressure -Treatment Response Procedure Tolerated Well -Debridement - Bone, 1st 20sq cm Yes #1 LT MED LE -Time 14:06 -Correct Patient Yes No -Correct Side, Site, Position Yes No -Correct Procedure Yes No -Procedure Performed Yes No -Type of Procedure Debridement -Clinical Debridement Muscle / Fascia -Tissue Removed Muscle -Post Debridement (cm) - Length 5.0 -Post Debridement (cm) - Width 1.3 -Post Debridement (cm) - Depth 2.6 -Total Square (Post) (cm) 6.50 -Area of Debridement (cm) - Length 5.0 -Area of Debridement (cm) - Width 1.3 -Total Square (Area) (cm) 6.50 -Tunneling No -Undermining/Tunneling No -Circular Undermining No -Wound/Ulcer Outcome Not Healed Not Healed -Ulcer Cleansing Rinsed/ Irrigated with Saline -Foul Odor after Cleansing No -Bioengineered Tissue No -Bleeding Controlled with Pressure -Treatment Response Procedure Tolerated Well -Debridement - Muscle / Fascia, 1st Yes 20sq cm Pain Scale: 0-10 Numeric Is Patient Pain Free? Yes Yes Assessment/Plan Assessment/Plan (1) Other acute postprocedural pain: CODE(S): G89.18 - Other acute postprocedural pain PLAN: Exam performed. Patient not on antibiotics per infectious disease. Culture and sensitivity demonstrated normal carlie growth. Will reorder x-rays. Continue home health care dressing changes 1-2 times per week Betadine Adaptic 4 x 4's Kerlix and Tubigrip for compression. Continue heel weightbearing in surgical shoe assisted by walker. Follow-up in 2 weeks for suture removal. (2) Non-pressure chronic ulcer of other part of left foot with necrosis of bone: CODE(S): L97.524 - Non-pressure chronic ulcer of other part of left foot with necrosis of bone (3) Chronic osteomyelitis of toe of left foot: CODE(S): M86.672 - Other chronic osteomyelitis, left ankle and foot (4) Acute osteomyelitis of left foot: CODE(S): M86.172 - Other acute osteomyelitis, left ankle and foot (5) Other specified peripheral vascular diseases: CODE(S): I73.89 - Other specified peripheral vascular diseases (6) Non-pressure chronic ulcer of other part of left lower leg with necrosis of muscle: CODE(S): L97.823 - Non-pressure chronic ulcer of other part of left lower leg with necrosis of muscle
--- NOTE | 2024-03-17 11:06 | WC ---
PHOTO 03/02/24 L MEDIAL LEG
--- NOTE | 2024-03-17 11:07 | WC ---
PHOTO 03/02/24 Alessia BOLTON
--- NOTE | 2024-03-18 08:45 | WC ---
PHOTO 03/15/24 LEFT GREAT TOE
--- NOTE | 2024-03-18 08:49 | WC ---
PHOTO 03/15/24 Alessia LEGER
--- NOTE | 2024-03-21 09:47 | WC ---
PHOTO 03/15/24 LEFT GREAT TOE
--- NOTE | 2024-03-21 09:49 | WC ---
PHOTO 03/15/24 LEFT LEGER
== END 2024-03-16 23:59 | disposition home or self-care (01) ==
LOC: WC 08:15
PROVIDERS: PCP Nurse Practitioner Family; Referring Provider Podiatrist Foot & Ankle Surgery; Visit Provider Podiatrist
DX: L97.524 Non-pressure chronic ulcer of other part of left foot with necrosis of bone (principal); L97.223 Non-pressure chronic ulcer of left calf with necrosis of muscle; M86.172 Other acute osteomyelitis, left ankle and foot; M86.672 Other chronic osteomyelitis, left ankle and foot; T81.31XA Disruption of external operation (surgical) wound, not elsewhere classified, initial encounter; I73.89 Other specified peripheral vascular diseases; G89.18 Other acute postprocedural pain; F17.200 Nicotine dependence, unspecified, uncomplicated; Z79.02 Long term (current) use of antithrombotics/antiplatelets; Z79.899 Other long term (current) drug therapy
CPT/HCPCS: 11043; 11044; 87070; 87075; 87077; 87186; 87205; 99203; 99204; 99214; G0463

== ENCOUNTER → 2024-03-25 | Outpatient (CLI) | payer MEDICARE, SELFPAY ==
--- NOTE | 2024-03-25 11:24 | RAD_ITS ---
HISTORY: Other acute osteomyelitis, left ankle and foot. TECHNIQUE: XR Foot 2 Views. COMPARISON: 03/09/2024. FINDINGS: BONES : Partial amputation of the first ray with amputation of the first toe metatarsal neck again seen. Healing comminuted nondisplaced fracture of the fifth proximal phalanx. Calcaneal enthesopathy noted. JOINTS: No dislocation. Joint spaces maintained. SOFT TISSUES: Mild soft tissue swelling. RAD/Foot min 3 Views IMPRESSION: Healing fracture of the proximal phalanx of the left fifth toe. Soft tissue swelling of the left foot with unchanged appearance of partial first ray amputation. Electronically Signed: Disha Lr MD at 10:45 EDT ,
== END | disposition home or self-care (01) ==
PROVIDERS: PCP Nurse Practitioner Family; Referring Provider Podiatrist; Visit Provider Podiatrist
DX: M86.172 Other acute osteomyelitis, left ankle and foot (principal)
CPT/HCPCS: 73630

== ENCOUNTER 2024-04-12 08:15 | Outpatient (RCR) | payer MEDICARE, SELFPAY ==
[2024-03-17 00:27] VITALS: BP 139/68; PULSE 84; RESP 18; TEMP 37; BMI 20.2
[2024-03-29 08:20] VITALS: BP 135/71; PULSE 84; RESP 18; TEMP 36.2; BMI 20.2
--- NOTE | 2024-03-29 09:14 | PN.PCM_ITS ---
History of Present Illness Date of Service: 03/29/24 Chief Complaint: Left foot ulceration and exposed bone. History of Wound: Patient has been dealing with a chronic wound for approximately 1 month Progress of Wound: Denies constitutional symptoms today. Pain controlled. No new complaints. Objective Data Objective Data Vital Signs: Vital Signs Temp Pulse Resp BP O2 Del Method 97.2 F L 84 18 135/71 H Room Air 03/29/24 08:20 03/29/24 08:20 03/29/24 08:20 03/29/24 08:20 03/29/24 08:20 Oxygen Delivery Method Room Air Weight: 69.4 kg Body Mass Index (BMI) 20.2 Physical Exam Narrative Neurovascular status unchanged from previous visit Partial wound dehiscence to left partial first ray amputation down to the level of subcutaneous tissue. All sutures were removed. Pre and postdebridement measurements documented nursing notes. No acute signs of infection. Full- thickness incision down to level of muscle dehiscence noted to the left leg incision. All sutures removed. Pre and postdebridement measurements documented nursing notes. No acute signs of infection. Debridement Note Debridement Note Post-Debridement Measurements and Additional Note: Post-Debridement Measurements/Treatment - Nurse 1 - General Ulcer Assessment Start: 03/29/24 08:20 Freq: Status: Active Protocol: LUIS Activity Type Activity Date Activity User E-sign Co-sign Detail Recorded Client Recorded Date Recorded By Document 03/29/24 08:20 KW gfj 03/29/24 08:35 KW 03/29/24 08:20 - Today's Visit Information Type of service Follow-up Visit (Physician/CLIENT ARCHITECT ) Arrival Mode Ambulatory, Walker Accompanied by Patient Identification Verified (Name & Yes ) Height and Weight Body Mass Index (BMI) 20.2 BMI Classification Normal Vital Signs Temperature (97.8 F-99.1 F) 97.2 F L Temperature Source Temporal Pulse Rate (60-100) 84 Pulse Location Monitor Respiratory Rate (12-18) 18 Respiratory rate source Observation Oxygen Delivery Method Room Air Blood Pressure (90/60-120/80) 135/71 H Blood Pressure Mean (mm Hg) 92 Source Monitor Position Semi-Fowlers Blood Pressure Location Left Arm History Since Last Visit- (Skip if this is Patient's initial visit) Have you changed medications since your No last visit? Any new allergies or adverse reactions No Had a fall/change in ADL's that may No increase risk of falls Signs or symptoms of abuse and/or No neglect since last visit Have you been in the hospital since your No last visit? Has dressing in place as prescribed Yes Has compression in place as prescribed Yes Has offloadiing in place as prescribed N/A Experienced any changes in pain level or No management Left Footwear Surgical Shoe with pressure relief insole Right Footwear Regular Shoe Pain Scale: 0-10 Numeric Is Patient Pain Free? Yes WC - Nurse 1 - General Ulcer Measurement Start: 03/29/24 08:20 Freq: Status: Active Protocol: Activity Type Activity Date Activity User E-sign Co-sign Detail Recorded Client Recorded Date Recorded By Document 03/29/24 08:20 KW luz maria 03/29/24 08:35 KW 03/29/24 08:20 Wound Center Nurse 1 #2 LT HALLUX -Current Size (cm) - Length 1 -Current Size (cm) - Width 0.5 -Current Size (cm) - Depth 0.1 -Total Square Cm 0.5 -Exudate Amt Small -Exudate Type Serosanguineous -Wound Margin Distinct, Outline Attached -Granulation Amt Large (67-100%) -Granulation Quality [place] -Necrosis Amt Small (1-33%) -Necrotic Tissue Type Adherent Slough -Texture (Becca-wound Skin Appearance) Assessed -Moisture (Becca-wound Skin Appearance) Assessed -Color (Becca-wound Skin Appearance) Assessed -Temperature (Becca-wound Skin No Abnormality Appearance) (Pt Warm) -Tenderness on Palpation (Becca-wound No Skin Appearance) -Ulcer Cleansing Soap and Water -Foul Odor after Cleansing No -Anesthetic Used 4% Lidocaine Solution #1 LT MED LE -Current Size (cm) - Length 5.3 -Current Size (cm) - Width 0.8 -Current Size (cm) - Depth 0.6 -Total Square Cm 4.24 -Exudate Amt Small -Exudate Type Serosanguineous -Wound Margin Distinct, Outline Attached -Granulation Amt Medium (34-66%) -Granulation Quality [place] -Necrosis Amt Medium (34-66%) -Necrotic Tissue Type Adherent Slough -Texture (Becca-wound Skin Appearance) Assessed -Moisture (Becca-wound Skin Appearance) Assessed -Color (Becca-wound Skin Appearance) Assessed -Temperature (Becca-wound Skin No Abnormality Appearance) (Pt Warm) -Tenderness on Palpation (Becca-wound No Skin Appearance) -Ulcer Cleansing Soap and Water -Foul Odor after Cleansing No -Anesthetic Used 4% Lidocaine Solution Left Calf (cm) 30.5 WC - Nurse 2 - General Ulcer CM Notes Start: 03/29/24 08:20 Freq: Status: Active Protocol: Activity Type Activity Date Activity User E-sign Co-sign Detail Recorded Client Recorded Date Recorded By Document 03/29/24 09:05 JF 0000 03/29/24 09:08 JF 03/29/24 09:05 Wound Center Nurse 2 #2 LT HALLUX -Time 09:06 -Correct Patient Yes -Correct Side, Site, Position Yes -Correct Procedure Yes -Procedure Performed Yes -Type of Procedure Debridement -Clinical Debridement Subcutaneous -Tissue Removed Subcutaneous -Post Debridement (cm) - Length 3.2 -Post Debridement (cm) - Width 0.6 -Post Debridement (cm) - Depth 0.1 -Total Square (Post) (cm) 1.92 -Area of Debridement (cm) - Length 3.2 -Area of Debridement (cm) - Width 0.6 -Total Square (Area) (cm) 1.92 -Tunneling No -Undermining/Tunneling No -Circular Undermining No -Wound/Ulcer Outcome Not Healed -Ulcer Cleansing Rinsed/ Irrigated with Saline -Foul Odor after Cleansing No -Bioengineered Tissue No -Bleeding Controlled with Pressure -Treatment Response Procedure Tolerated Well -Offloading Yes -Type of Offloading Surgical Shoe -Debridement - Subq, 1st 20sq cm Yes #1 LT MED LE -Time 09:06 -Correct Patient Yes -Correct Side, Site, Position Yes -Correct Procedure Yes -Procedure Performed Yes -Type of Procedure Debridement -Clinical Debridement Muscle / Fascia -Tissue Removed Muscle,Fascia -Post Debridement (cm) - Length 6.4 -Post Debridement (cm) - Width 0.9 -Post Debridement (cm) - Depth 0.6 -Total Square (Post) (cm) 5.76 -Area of Debridement (cm) - Length 6.4 -Area of Debridement (cm) - Width 0.9 -Total Square (Area) (cm) 5.76 -Tunneling No -Undermining/Tunneling No -Circular Undermining No -Wound/Ulcer Outcome Not Healed -Ulcer Cleansing Rinsed/ Irrigated with Saline -Foul Odor after Cleansing No -Bioengineered Tissue No -Bleeding Controlled with Pressure -Treatment Response Procedure Tolerated Well -Offloading No -Debridement - Muscle / Fascia, 1st Yes 20sq cm Pain Scale: 0-10 Numeric Is Patient Pain Free? Yes Assessment/Plan Assessment/Plan (1) Other specified peripheral vascular diseases: CODE(S): I73.89 - Other specified peripheral vascular diseases PLAN: Exam performed. Sutures aseptically removed. Full-thickness incision to cyst dehiscence noted to the left hallux partial first ray amputation site Down to level of subcutaneous tissue full-thickness dehiscence down to muscle to left leg incisional site. Left foot wound was debrided down to including level of subcutaneous tissue and left leg wound was debrided down to including level of muscle using combination of pickups 15 blade and 5 mm dermal dermal curette all nonviable tissue was removed. Hemostasis obtained with light compression. Local anesthesia was performed using 10 cc of 2% lidocaine plain. Pre and postdebridement measurements documented nursing notes. Patient tolerated procedure well. Will plan for Dakin's wet to dry dressings and dry sterile dressing as well as overlying Tubigrip every third day per home health care. Patient follow-up in 1 week. Patient can heel weight-bear in surgical shoe on left. 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
[2024-04-05 08:43] VITALS: BP 152/74; PULSE 79; RESP 18; TEMP 35.5; BMI 20.2
--- NOTE | 2024-04-05 09:18 | PCM.WC.PN ---
History of Present Illness Date of Service: 04/05/24 Chief Complaint: Left foot ulceration and exposed bone. History of Wound: Patient has been dealing with a chronic wound for approximately 1 month Progress of Wound: Denies constitutional symptoms today. Pain controlled. No new complaints. 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 All sutures were removed. Pre and postdebridement measurements documented nursing notes. No acute signs of infection. Full-thickness incision down to level of muscle dehiscence noted to the left leg incision. All sutures removed. Pre and postdebridement measurements documented nursing notes. No acute signs of infection. Debridement Note Debridement Note Post-Debridement Measurements and Additional Note: Post-Debridement Measurements/Treatment - Nurse 1 - General Ulcer Assessment Start: 03/29/24 08:20 Freq: Status: Active Protocol: LUIS Activity Type Activity Date Activity User E-sign Co-sign Detail Recorded Client Recorded Date Recorded By Document 03/29/24 08:20 KW gfj 03/29/24 08:35 KW Document 04/05/24 08:43 RB [id number] 04/05/24 08:45 RB 03/29/24 04/05/24 08:20 08:43 - Today's Visit Information Type of service Follow-up Visit Follow-up Visit (Physician/[employer]AM [employer]ANT RECORDS CLERK (Physician/[employer]ANT RECORDS CLERK ) ) Arrival Mode Ambulatory, Ambulatory,Cane Walker Transfer Assistance Manual Accompanied by Patient Identification Verified (Name & Yes Yes ) Patient Requires Transmission-Based No Precautions Height and Weight Body Mass Index (BMI) 20.2 20.2 BMI Classification Normal Normal Vital Signs Temperature (97.8 F-99.1 F) 97.2 F L 96 F L Temperature Source Temporal Temporal Pulse Rate (60-100) 84 79 Pulse Location Monitor Monitor Respiratory Rate (12-18) 18 18 Respiratory rate source Observation Observation Oxygen Delivery Method Room Air Blood Pressure (90/60-120/80) 135/71 H 152/74 H Blood Pressure Mean (mm Hg) 92 100 Source Monitor Monitor Position Semi-Fowlers Supine Blood Pressure Location Left Arm Right Arm History Since Last Visit- (Skip if this is Patient's initial visit) Have you changed medications since your No No last visit? Any new allergies or adverse reactions No No Had a fall/change in ADL's that may No No increase risk of falls Signs or symptoms of abuse and/or No No neglect since last visit Have you been in the hospital since your No No last visit? Has dressing in place as prescribed Yes Yes Has compression in place as prescribed Yes Yes Has offloadiing in place as prescribed N/A No Experienced any changes in pain level or No No management Left Footwear Surgical Shoe Regular Shoe with pressure relief insole Right Footwear Regular Shoe Regular Shoe Pain Scale: 0-10 Numeric Is Patient Pain Free? Yes Yes WC - Nurse 1 - General Ulcer Measurement Start: 03/29/24 08:20 Freq: Status: Active Protocol: Activity Type Activity Date Activity User E-sign Co-sign Detail Recorded Client Recorded Date Recorded By Document 03/29/24 08:20 KW gfj 03/29/24 08:35 KW Document 04/05/24 08:43 RB [id number] 04/05/24 08:45 RB 03/29/24 04/05/24 08:20 08:43 Wound Center Nurse 1 #2 LT HALLUX -Combined with other wound No -Current Size (cm) - Length 1 3.5 -Current Size (cm) - Width 0.5 3 -Current Size (cm) - Depth 0.1 0.2 -Total Square Cm 0.5 10.5 -Tunneling No -Undermining/Tunneling No -Circular Undermining No -Exudate Amt Small Medium -Exudate Type Serosanguineous Serosanguineous -Wound Margin Distinct, Distinct, Outline Outline Attached Attached -Granulation Amt Large (67-100%) Medium (34-66%) -Granulation [place] -Slough/Fibrin Yes -Necrosis Amt Small (1-33%) Medium (34-66%) -Necrotic Tissue Type Adherent Slough Adherent Slough -Structure Exposed N/A -Texture (Becca-wound Skin Appearance) Assessed Assessed -Moisture (Becca-wound Skin Appearance) Assessed -Color (Bceca-wound Skin Appearance) Assessed Assessed -Temperature (Becca-wound Skin No Abnormality No Abnormality Appearance) (Pt Warm) (Pt Warm) -Tenderness on Palpation (Becca-wound No No Skin Appearance) -Ulcer Cleansing Soap and Water Wound Cleanser -Foul Odor after Cleansing No No -Anesthetic Used 4% Lidocaine 5% Lidocaine Solution Gel #1 LT MED LE -Combined with other wound No -Current Size (cm) - Length 5.3 5 -Current Size (cm) - Width 0.8 1.2 -Current Size (cm) - Depth 0.6 0.3 -Total Square Cm 4.24 6.0 -Tunneling No -Undermining/Tunneling No -Circular Undermining No -Exudate Amt Small Large -Exudate Type Serosanguineous Serosanguineous -Wound Margin Distinct, Thickened & Outline Rolled Under Attached -Granulation Amt Medium (34-66%) -Granulation Quality [place] -Slough/Fibrin Yes -Necrosis Amt Medium (34-66%) Medium (34-66%) -Necrotic Tissue Type Adherent Slough Adherent Slough -Structure Exposed N/A -Texture (Becca-wound Skin Appearance) Assessed Assessed -Moisture (Becca-wound Skin Appearance) Assessed -Color (Becca-wound Skin Appearance) Assessed Assessed -Temperature (Becca-wound Skin No Abnormality No Abnormality Appearance) (Pt Warm) (Pt Warm) -Tenderness on Palpation (Becca-wound No No Skin Appearance) -Ulcer Cleansing Soap and Water Wound Cleanser -Foul Odor after Cleansing No No -Anesthetic Used 4% Lidocaine 5% Lidocaine Solution Gel Left Calf (cm) 30.5 WC - Nurse 2 - General Ulcer CM Notes Start: 03/29/24 08:20 Freq: Status: Active Protocol: Activity Type Activity Date Activity User E-sign Co-sign Detail Recorded Client Recorded Date Recorded By Document 03/29/24 09:05 JF 0000 03/29/24 09:08 JF Document 04/05/24 08:51 ANNETTE [id number] 04/05/24 08:54 JF 03/29/24 04/05/24 09:05 08:51 Wound Center Nurse 2 #2 LT HALLUX -Time 09:06 08:52 -Correct Patient Yes Yes -Correct Side, Site, Position Yes Yes -Correct Procedure Yes Yes -Procedure Performed Yes Yes -Type of Procedure Debridement Debridement -Clinical Debridement Subcutaneous Subcutaneous -Tissue Removed Subcutaneous Subcutaneous -Post Debridement (cm) - Length 3.2 3.5 -Post Debridement (cm) - Width 0.6 0.5 -Post Debridement (cm) - Depth 0.1 0.2 -Total Square (Post) (cm) 1.92 1.75 -Area of Debridement (cm) - Length 3.2 3.5 -Area of Debridement (cm) - Width 0.6 0.5 -Total Square (Area) (cm) 1.92 1.75 -Tunneling No No -Undermining/Tunneling No No -Circular Undermining No No -Wound/Ulcer Outcome Not Healed Not Healed -Ulcer Cleansing Rinsed/ Rinsed/ Irrigated with Irrigated with Saline Saline -Foul Odor after Cleansing No No -Bioengineered Tissue No No -Bleeding Controlled with Pressure NA -Treatment Response Procedure Procedure Tolerated Well Tolerated Well -Offloading Yes Yes -Type of Offloading Surgical Shoe Surgical Shoe -Debridement - Subq, 1st 20sq cm Yes Yes #1 LT MED LE -Time 09:06 08:54 -Correct Patient Yes Yes -Correct Side, Site, Position Yes Yes -Correct Procedure Yes Yes -Procedure Performed Yes Yes -Type of Procedure Debridement Debridement -Clinical Debridement Muscle / Fascia Muscle / Fascia -Tissue Removed Muscle,Fascia Muscle -Post Debridement (cm) - Length 6.4 5.5 -Post Debridement (cm) - Width 0.9 1.0 -Post Debridement (cm) - Depth 0.6 0.5 -Total Square (Post) (cm) 5.76 5.50 -Area of Debridement (cm) - Length 6.4 5.5 -Area of Debridement (cm) - Width 0.9 1.0 -Total Square (Area) (cm) 5.76 5.50 -Tunneling No No -Undermining/Tunneling No No -Circular Undermining No No -Wound/Ulcer Outcome Not Healed Not Healed -Ulcer Cleansing Rinsed/ Rinsed/ Irrigated with Irrigated with Saline Saline -Foul Odor after Cleansing No No -Bioengineered Tissue No No -Bleeding Controlled with Pressure Pressure -Treatment Response Procedure Procedure Tolerated Well Tolerated Well -Offloading No No -Type of Offloading [place] Shoe - Left -Debridement - Muscle / Fascia, 1st Yes Yes 20sq cm Pain Scale: 0-10 Numeric Is Patient Pain Free? Yes Yes WC - Nurse 3 - General Ulcer D/C NN Start: 03/29/24 08:20 Freq: Status: Active Protocol: Activity Type Activity Date Activity User E-sign Co-sign Detail Recorded Client Recorded Date Recorded By Document 03/29/24 09:37 KW gfj 03/29/24 09:38 KW Document 04/05/24 09:14 RB [id number] 04/05/24 09:16 RB 03/29/24 04/05/24 09:37 09:14 Wound Care Center Nurse 3 #2 LT HALLUX -Primary Dressing Applied Hysept ($) -Other Dressing dakins moistened gauze -Primary Dressing Covered/Secured with Dry Gauze & Dry Gauze,Dry Roll Gauze, Gauze & Roll Secured with Gauze,Secured Tape with Tape #1 LT MED LE -Other Dressing dakins moistened gauze -Primary Dressing Covered/Secured with Dry Gauze Dry Gauze,Dry Gauze & Roll Gauze,Secured with Tape Left -Tubular Bandage Single Layer Single Layer -Size of Tubigrip Used Size E Size E -Size E ($) 1 1 Treatment Response Procedure Tolerated Well Pain Scale: 0-10 Numeric Is Patient Pain Free? Yes Yes Teaching: Wound Center Dressing Your Wound -Person Taught Patient,Family -Teaching Method Discussion, Demonstration -Response to teaching Verbalize Understanding WC - Visit Discharge Discharge Condition Stable Ambulatory Status Ambulatory,Cane Transportation Private Auto Medication Reconcilliation completed & No provided to patient/care provider Clinical Summary of Care Provided Yes Assessment/Plan Assessment/Plan (1) Other specified peripheral vascular diseases: CODE(S): I73.89 - Other specified peripheral vascular diseases PLAN: Exam performed. Sutures aseptically removed. Full-thickness incision dehiscence noted to the left hallux partial first ray amputation site. Full-thickness dehiscence down to muscle to left leg incisional site. Left foot wound was debrided down to including level of subcutaneous tissue and left leg wound was debrided down to including level of muscle using combination of pickups 15 blade and 5 mm dermal dermal curette all nonviable tissue was removed. Hemostasis obtained with light compression. Local anesthesia was performed using 10 cc of 2% lidocaine plain. Pre and postdebridement measurements documented nursing notes. Patient tolerated procedure well. Will plan for Dakin's wet to dry dressings and dry sterile dressing as well as overlying Tubigrip every third day per home health care. Patient follow-up in 1 week. Patient can heel weight-bear in surgical shoe on left. Will plan for epi cord grafting (2) Non-pressure chronic ulcer of left ankle with necrosis of muscle: CODE(S): L97.323 - Non-pressure chronic ulcer of left ankle with necrosis of muscle (3) Non-pressure chronic ulcer of other part of left foot with fat layer exposed: CODE(S): L97.522 - Non-pressure chronic ulcer of other part of left foot with fat layer exposed
[2024-04-12 08:17] VITALS: BP 132/65; PULSE 65; RESP 18; TEMP 35.8; BMI 20.2
--- NOTE | 2024-04-12 09:20 | PN.PCM_ITS ---
History of Present Illness Date of Service: 04/12/24 Chief Complaint: Left foot ulceration and exposed bone. History of Wound: Patient has been dealing with a chronic wound for approximately 1 month Progress of Wound: Denies constitutional symptoms today. Pain controlled. No new complaints. 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 All sutures were removed. Pre and postdebridement measurements documented nursing notes. No acute signs of infection. Full- thickness incision down to level of muscle dehiscence noted to the left leg incision. All sutures removed. Pre and postdebridement measurements documented nursing notes. No acute signs of infection. Debridement Note Debridement Note Post-Debridement Measurements and Additional Note: Post-Debridement Measurements/Treatment - Nurse 1 - General Ulcer Assessment Start: 03/29/24 08:20 Freq: Status: Active Protocol: LUIS Activity Type Activity Date Activity User E-sign Co-sign Detail Recorded Client Recorded Date Recorded By Document 03/29/24 08:20 KW [email or web address] 03/29/24 08:35 KW Document 04/05/24 08:43 RB [id number] 04/05/24 08:45 RB Document 04/12/24 08:17 RB [id number] 04/12/24 08:28 RB 03/29/24 04/05/24 04/12/24 08:20 08:43 08:17 - Today's Visit Information Type of service Follow-up Visit Follow-up Visit Follow-up Visit (Physician/[facility] (Physician/[facility] (Physician/[facility] ) ) ) Arrival Mode Ambulatory, Ambulatory,Cane Ambulatory,Cane Walker Transfer Assistance Manual None Accompanied by Patient Identification Verified (Name & Yes Yes Yes ) Patient Requires Transmission-Based No No Precautions Height and Weight Body Mass Index (BMI) 20.2 20.2 20.2 BMI Classification Normal Normal Normal Vital Signs Temperature (97.8 F-99.1 F) 97.2 F L 96 F L 96.5 F L Temperature Source Temporal Temporal Temporal Pulse Rate (60-100) 84 79 65 Pulse Location Monitor Monitor Monitor Respiratory Rate (12-18) 18 18 18 Respiratory rate source Observation Observation Observation Oxygen Delivery Method Room Air Blood Pressure (90/60-120/80) 135/71 H 152/74 H 132/65 H Blood Pressure Mean (mm Hg) 92 100 87 Source Monitor Monitor Monitor Position Semi-Fowlers Supine Sitting Blood Pressure Location Left Arm Right Arm Left Arm History Since Last Visit- (Skip if this is Patient's initial visit) Have you changed medications since your No No No last visit? Any new allergies or adverse reactions No No No Had a fall/change in ADL's that may No No No increase risk of falls Signs or symptoms of abuse and/or No No No neglect since last visit Have you been in the hospital since your No No No last visit? Has dressing in place as prescribed Yes Yes Yes Has compression in place as prescribed Yes Yes No Has offloadiing in place as prescribed N/A No No Experienced any changes in pain level or No No No management Left Footwear Surgical Shoe Regular Shoe with pressure relief insole Right Footwear Regular Shoe Regular Shoe Pain Scale: 0-10 Numeric Is Patient Pain Free? Yes Yes Yes LLE -Description Aching -Intensity 7 -Duration (hours) Acute -Pain Behavior Moaning, Withdrawal from Touch -Pain Aggravating Factors Exercise/ Activity -Alleviating Factors/Interventions Medication -Effectiveness of Alleviating Factor/ Moderately Intervention effective WC - Nurse 1 - General Ulcer Measurement Start: 03/29/24 08:20 Freq: Status: Active Protocol: Activity Type Activity Date Activity User E-sign Co-sign Detail Recorded Client Recorded Date Recorded By Document 03/29/24 08:20 KW [email or web address] 03/29/24 08:35 KW Document 04/05/24 08:43 RB [id number] 04/05/24 08:45 RB Document 04/12/24 08:17 RB [id number] 04/12/24 08:28 RB 03/29/24 04/05/24 04/12/24 08:20 08:43 08:17 Wound Center Nurse 1 #2 LT HALLUX -Combined with other wound No No -Current Size (cm) - Length 1 3.5 0.4 -Current Size (cm) - Width 0.5 3 0.3 -Current Size (cm) - Depth 0.1 0.2 0.3 -Total Square Cm 0.5 10.5 0.12 -Photo Taken No -Tunneling No No -Undermining/Tunneling No No -Circular Undermining No No -Exudate Amt Small Medium Medium -Exudate Type Serosanguineous Serosanguineous Purulent -Wound Margin Distinct, Distinct, Thickened Outline Outline Attached Attached -Granulation Amt Large (67-100%) Medium (34-66%) Medium (34-66%) -Granulation Quality [place] -Slough/Fibrin Yes Yes -Necrosis Amt Small (1-33%) Medium (34-66%) Medium (34-66%) -Necrotic Tissue Type Adherent Slough Adherent Slough Adherent Slough -Structure Exposed N/A N/A -Texture (Becca-wound Skin Appearance) Assessed Assessed Assessed -Moisture (Becca-wound Skin Appearance) Assessed Dry/Scaly -Color (Becca-wound Skin Appearance) Assessed Assessed Assessed -Temperature (Becca-wound Skin No Abnormality No Abnormality No Abnormality Appearance) (Pt Warm) (Pt Warm) (Pt Warm) -Tenderness on Palpation (Becca-wound No No No Skin Appearance) -Ulcer Cleansing Soap and Water Wound Cleanser Wound Cleanser -Foul Odor after Cleansing No No No -Anesthetic Used 4% Lidocaine 5% Lidocaine 5% Lidocaine Solution Gel Gel #1 LT MED LE -Combined with other wound No No -Current Size (cm) - Length 5.3 5 4.2 -Current Size (cm) - Width 0.8 1.2 0.6 -Current Size (cm) - Depth 0.6 0.3 0.5 -Total Square Cm 4.24 6.0 2.52 -Photo Taken No -Tunneling No No -Undermining/Tunneling No No -Circular Undermining No No -Exudate Amt Small Large Medium -Exudate Type Serosanguineous Serosanguineous Serosanguineous -Wound Margin Distinct, Thickened & Thickened & Outline Rolled Under Rolled Under Attached -Granulation Amt Medium (34-66%) Medium (34-66%) -Granulation Quality [place] -Slough/Fibrin Yes Yes -Necrosis Amt Medium (34-66%) Medium (34-66%) Medium (34-66%) -Necrotic Tissue Type Adherent Slough Adherent Slough Adherent Slough -Structure Exposed N/A N/A -Texture (Becca-wound Skin Appearance) Assessed Assessed Assessed, Scarring -Moisture (Becca-wound Skin Appearance) Assessed Assessed -Color (Becca-wound Skin Appearance) Assessed Assessed Assessed -Temperature (Becca-wound Skin No Abnormality No Abnormality No Abnormality Appearance) (Pt Warm) (Pt Warm) (Pt Warm) -Tenderness on Palpation (Becca-wound No No No Skin Appearance) -Ulcer Cleansing Soap and Water Wound Cleanser Wound Cleanser -Foul Odor after Cleansing No No No -Anesthetic Used 4% Lidocaine 5% Lidocaine 5% Lidocaine Solution Gel Gel Lower Limb Edema Present Yes Left Calf (cm) 30.5 32 Left Ankle (cm) 21 WC - Nurse 2 - General Ulcer CM Notes Start: 03/29/24 08:20 Freq: Status: Active Protocol: Activity Type Activity Date Activity User E-sign Co-sign Detail Recorded Client Recorded Date Recorded By Document 03/29/24 09:05 0000 03/29/24 09:08 Document 04/05/24 08:51 [id number] 04/05/24 08:54 Document 04/12/24 08:45 [id number] 04/12/24 08:52 03/29/24 04/05/24 04/12/24 09:05 08:51 08:45 Wound Center Nurse 2 #2 LT HALLUX -Time 09:06 08:52 08:46 -Correct Patient Yes Yes Yes -Correct Side, Site, Position Yes Yes Yes -Correct Procedure Yes Yes Yes -Procedure Performed Yes Yes Yes -Type of Procedure Debridement Debridement Debridement -Clinical Debridement Subcutaneous Subcutaneous Subcutaneous -Tissue Removed Subcutaneous Subcutaneous Subcutaneous -Post Debridement (cm) - Length 3.2 3.5 2.3 -Post Debridement (cm) - Width 0.6 0.5 0.4 -Post Debridement (cm) - Depth 0.1 0.2 0.5 -Total Square (Post) (cm) 1.92 1.75 0.92 -Area of Debridement (cm) - Length 3.2 3.5 2.3 -Area of Debridement (cm) - Width 0.6 0.5 0.4 -Total Square (Area) (cm) 1.92 1.75 0.92 -Tunneling No No No -Undermining/Tunneling No No No -Circular Undermining No No No -Wound/Ulcer Outcome Not Healed Not Healed Not Healed -Ulcer Cleansing Rinsed/ Rinsed/ Rinsed/ Irrigated with Irrigated with Irrigated with Saline Saline Saline -Foul Odor after Cleansing No No No -Bioengineered Tissue No No No -Bleeding Controlled with Pressure NA Pressure -Treatment Response Procedure Procedure Procedure Tolerated Well Tolerated Well Tolerated Well -Offloading Yes Yes Yes -Type of Offloading Surgical Shoe Surgical Shoe Surgical Shoe -Debridement - Subq, 1st 20sq cm Yes Yes Yes #1 LT MED LE -Time 09:06 08:54 08:46 -Correct Patient Yes Yes Yes -Correct Side, Site, Position Yes Yes Yes -Correct Procedure Yes Yes Yes -Procedure Performed Yes Yes Yes -Type of Procedure Debridement Debridement Debridement -Clinical Debridement Muscle / Fascia Muscle / Fascia Muscle / Fascia -Tissue Removed Muscle,Fascia Muscle Muscle,Fascia -Post Debridement (cm) - Length 6.4 5.5 5.0 -Post Debridement (cm) - Width 0.9 1.0 0.7 -Post Debridement (cm) - Depth 0.6 0.5 0.4 -Total Square (Post) (cm) 5.76 5.50 3.50 -Area of Debridement (cm) - Length 6.4 5.5 5.0 -Area of Debridement (cm) - Width 0.9 1.0 0.7 -Total Square (Area) (cm) 5.76 5.50 3.50 -Tunneling No No No -Undermining/Tunneling No No No -Circular Undermining No No No -Wound/Ulcer Outcome Not Healed Not Healed Not Healed -Ulcer Cleansing Rinsed/ Rinsed/ Rinsed/ Irrigated with Irrigated with Irrigated with Saline Saline Saline -Foul Odor after Cleansing No No No -Bioengineered Tissue No No Yes -Type of Bioengineered Tissue Epicord -Expiration Date 10/15/28 -Product Lot Number [id number] -Percent Used 100 -Lot number of Saline Used [id number] -Bleeding Controlled with Pressure Pressure Pressure -Treatment Response Procedure Procedure Procedure Tolerated Well Tolerated Well Tolerated Well -Offloading No No Yes -Type of Offloading [place] Shoe - Surgical Shoe Left -Debridement - Muscle / Fascia, 1st Yes Yes No 20sq cm -Apply Skin Sub - 1st 25 sq cm - Legs 1 -Epicord (per sq cm) 6 Pain Scale: 0-10 Numeric Is Patient Pain Free? Yes Yes Yes WC - Nurse 3 - General Ulcer D/C NN Start: 03/29/24 08:20 Freq: Status: Active Protocol: Activity Type Activity Date Activity User E-sign Co-sign Detail Recorded Client Recorded Date Recorded By Document 03/29/24 09:37 KW gfj 03/29/24 09:38 KW Document 04/05/24 09:14 RB [id number] 04/05/24 09:16 RB Document 04/12/24 09:11 RB [id number] 04/12/24 09:13 RB 03/29/24 04/05/24 04/12/24 09:37 09:14 09:11 Wound Care Center Nurse 3 #2 LT HALLUX -Primary Dressing Applied Hysept ($) -Other Dressing dakins moistened gauze -Primary Dressing Covered/Secured with Dry Gauze & Dry Gauze,Dry Dry Gauze,Dry Roll Gauze, Gauze & Roll Gauze & Roll Secured with Gauze,Secured Gauze,Secured Tape with Tape with Tape #1 LT MED LE -Other Dressing dakins moistened gauze -Primary Dressing Covered/Secured with Dry Gauze Dry Gauze,Dry Dry Gauze,Dry Gauze & Roll Gauze & Roll Gauze,Secured Gauze,Secured with Tape with Tape Left -Tubular Bandage Single Layer Single Layer Single Layer -Size of Tubigrip Used Size E Size E Size E -Size E ($) 1 1 1 Treatment Response Procedure Tolerated Well Pain Scale: 0-10 Numeric Is Patient Pain Free? Yes Yes No LLE -Description Aching -Intensity 7 -Pain Behavior Withdrawal from Touch -Pain Aggravating Factors ADL's -Alleviating Factors/Interventions Medication -Effectiveness of Alleviating Factor/ Moderately Intervention effective Teaching: Wound Center Compression Wraps & Stockings -Person Taught Patient,Family -Teaching Method Discussion, Demonstration -Response to teaching Verbalize Understanding Dressing Your Wound -Person Taught Patient,Family Patient -Teaching Method Discussion, Discussion, Demonstration Demonstration -Response to teaching Verbalize Understanding WC - Visit Discharge Discharge Condition Stable Stable Ambulatory Status Ambulatory,Cane Cane Transportation Private Auto Private Auto Medication Reconcilliation completed & No No provided to patient/care provider Clinical Summary of Care Provided Yes Yes Assessment/Plan Assessment/Plan (1) Other specified peripheral vascular diseases: CODE(S): I73.89 - Other specified peripheral vascular diseases PLAN: Exam performed. Sutures aseptically removed. Full-thickness incision dehiscence noted to the left hallux partial first ray amputation site. Full-thickness dehiscence down to muscle to left leg incisional site. Left foot wound was debrided down to including level of subcutaneous tissue and left leg wound was debrided down to including level of muscle using combination of pickups 15 blade and 5 mm dermal dermal curette all nonviable tissue was removed. Hemostasis obtained with light compression. Local anesthesia was performed using 10 cc of 2% lidocaine plain. Pre and postdebridement measurements documented nursing notes. Patient tolerated procedure well. Will plan for Dakin's wet to dry dressings and dry sterile dressing as well as overlying Tubigrip every third day per home health care. Patient follow-up in 1 week. Patient can heel weight-bear in surgical shoe on left. Will plan for epi cord grafting (2) Non-pressure chronic ulcer of left ankle with necrosis of muscle: CODE(S): L97.323 - Non-pressure chronic ulcer of left ankle with necrosis of muscle (3) Non-pressure chronic ulcer of other part of left foot with fat layer exposed: CODE(S): L97.522 - Non-pressure chronic ulcer of other part of left foot with fat layer exposed
== END 2024-04-16 23:59 | disposition home or self-care (01) ==
LOC: WC 08:15
PROVIDERS: PCP Nurse Practitioner Family; Referring Provider Podiatrist Foot & Ankle Surgery; Visit Provider Podiatrist
DX: T87.81 Dehiscence of amputation stump (principal); L97.323 Non-pressure chronic ulcer of left ankle with necrosis of muscle; L97.522 Non-pressure chronic ulcer of other part of left foot with fat layer exposed; I73.9 Peripheral vascular disease, unspecified; Y83.5 Amputation of limb(s) as the cause of abnormal reaction of the patient, or of later complication, without mention of misadventure at the time of the procedure; Z79.82 Long term (current) use of aspirin; Z79.02 Long term (current) use of antithrombotics/antiplatelets; Z79.891 Long term (current) use of opiate analgesic; Z79.899 Other long term (current) drug therapy
CPT/HCPCS: 11042; 11043; 15271; Q4187

== ENCOUNTER 2024-05-10 08:15 | Outpatient (RCR) | payer MEDICARE, SELFPAY ==
[2024-04-17 00:20] VITALS: BP 139/68; PULSE 84; RESP 18; TEMP 37; BMI 20.2
[2024-04-19 08:14] VITALS: BP 127/60; PULSE 74; RESP 16; TEMP 35.9; BMI 20.2
--- NOTE | 2024-04-19 09:10 | PN.PCM_ITS ---
History of Present Illness Date of Service: 04/19/24 Chief Complaint: Left foot ulceration and exposed bone. History of Wound: Patient has been dealing with a chronic wound for approximately 1 month Progress of Wound: Denies constitutional's. Status post angioplasty on Thursday04/15/[address] Braden. No other changes. Objective Data Objective Data Vital Signs: Vital Signs Temp Pulse Resp BP O2 Del Method 96.6 F L 74 16 127/60 H Room Air 04/19/24 08:14 04/19/24 08:14 04/19/24 08:14 04/19/24 08:14 04/19/24 08:14 Oxygen Delivery Method Room Air Weight: 69.4 kg Body Mass Index (BMI) 20.2 Physical Exam Narrative Neurovascular status unchanged from previous visit Left first ray amputation healed. Full-thickness incision down to level of muscle dehiscence noted to the left leg incision. Pre and postdebridement measurements documented nursing notes. No acute signs of infection. Debridement Note Debridement Note Post-Debridement Measurements and Additional Note: Post-Debridement Measurements/Treatment - Nurse 1 - General Ulcer Assessment Start: 04/19/24 08:14 Freq: Status: Active Protocol: [email or web address] Activity Type Activity Date Activity User E-sign Co-sign Detail Recorded Client Recorded Date Recorded By Document 04/19/24 08:14 KW [id number] 04/19/24 08:26 KW 04/19/24 08:14 - Today's Visit Information Type of service Follow-up Visit (Physician/[facility] ) Arrival Mode Ambulatory,Cane Patient Identification Verified (Name & Yes ) Height and Weight Body Mass Index (BMI) 20.2 BMI Classification Normal Vital Signs Temperature (97.8 F-99.1 F) 96.6 F L Temperature Source Temporal Pulse Rate (60-100) 74 Pulse Location Monitor Respiratory Rate (12-18) 16 Respiratory rate source Monitor Oxygen Delivery Method Room Air Blood Pressure (90/60-120/80) 127/60 H Blood Pressure Mean (mm Hg) 82 Source Monitor Position Supine Blood Pressure Location Right Arm History Since Last Visit- (Skip if this is Patient's initial visit) Have you changed medications since your No last visit? Any new allergies or adverse reactions No Had a fall/change in ADL's that may No increase risk of falls Signs or symptoms of abuse and/or No neglect since last visit Have you been in the hospital since your No last visit? Has dressing in place as prescribed Yes Has compression in place as prescribed Yes Has offloadiing in place as prescribed Yes Experienced any changes in pain level or No management Left Footwear Surgical Shoe with pressure relief insole Right Footwear Regular Shoe Pain Scale: 0-10 Numeric Is Patient Pain Free? No LLE -Description Aching -Alleviating Factors/Interventions Medication -Comments constant pain WC - Nurse 1 - General Ulcer Measurement Start: 04/19/24 08:14 Freq: Status: Active Protocol: Activity Type Activity Date Activity User E-sign Co-sign Detail Recorded Client Recorded Date Recorded By Document 04/19/24 08:14 KW [id number] 04/19/24 08:26 KW 04/19/24 08:14 Wound Center Nurse 1 #2 LT HALLUX -Current Size (cm) - Length 0.1 -Current Size (cm) - Width 0.1 -Current Size (cm) - Depth 0.1 -Total Square Cm 0.01 -Date of Last Picture (Recall this 04/19/24 field) -Exudate Amt Small -Exudate Type Serosanguineous -Wound Margin Distinct, Outline Attached -Granulation Amt Small (1-33%) -Granulation Quality [place] -Necrosis Amt Large (67-100%) -Necrotic Tissue Type Adherent Slough -Texture (Becca-wound Skin Appearance) Not Assessed -Moisture (Becca-wound Skin Appearance) Assessed -Color (Becca-wound Skin Appearance) Assessed -Temperature (Becca-wound Skin No Abnormality Appearance) (Pt Warm) -Tenderness on Palpation (Becca-wound No Skin Appearance) -Ulcer Cleansing Soap and Water -Anesthetic Used 5% Lidocaine Gel #1 LT MED LE -Current Size (cm) - Length 5.8 -Current Size (cm) - Width 0.7 -Current Size (cm) - Depth 0.2 -Total Square Cm 4.06 -Date of Last Picture (Recall this 04/19/24 field) -Exudate Amt Small -Exudate Type Serosanguineous -Granulation Amt Small (1-33%) -Granulation Quality [place] -Necrosis Amt Large (67-100%) -Necrotic Tissue Type Eschar -Texture (Becca-wound Skin Appearance) Assessed -Moisture (Becca-wound Skin Appearance) Assessed -Color (Becca-wound Skin Appearance) Assessed -Temperature (Becca-wound Skin No Abnormality Appearance) (Pt Warm) -Tenderness on Palpation (Becca-wound No Skin Appearance) -Ulcer Cleansing Soap and Water -Foul Odor after Cleansing No -Anesthetic Used 5% Lidocaine Gel Left Calf (cm) 33 Left Ankle (cm) 21 WC - Nurse 2 - General Ulcer CM Notes Start: 04/19/24 08:14 Freq: Status: Active Protocol: Activity Type Activity Date Activity User E-sign Co-sign Detail Recorded Client Recorded Date Recorded By Document 04/19/24 08:34 ANNETTE [id number] 04/19/24 08:41 ANNETTE 04/19/24 08:34 Wound Center Nurse 2 #2 LT HALLUX -Time 08:34 -Correct Patient No -Correct Side, Site, Position No -Correct Procedure No -Procedure Performed No -Post Debridement (cm) - Length 0 -Post Debridement (cm) - Width 0 -Post Debridement (cm) - Depth 0 -Total Square (Post) (cm) 0 -Area of Debridement (cm) - Length 0 -Area of Debridement (cm) - Width 0 -Total Square (Area) (cm) 0 -Tunneling No -Undermining/Tunneling No -Circular Undermining No -Wound/Ulcer Outcome Healed- Epithelialized -Ulcer Cleansing Rinsed/ Irrigated with Saline -Foul Odor after Cleansing No -Bioengineered Tissue Yes -Type of Bioengineered Tissue Epicord #1 LT MED LE -Correct Patient Yes -Correct Side, Site, Position Yes -Correct Procedure Yes -Procedure Performed Yes -Type of Procedure Debridement -Clinical Debridement Subcutaneous -Tissue Removed Subcutaneous -Post Debridement (cm) - Length 4.5 -Post Debridement (cm) - Width 0.5 -Post Debridement (cm) - Depth 0.4 -Total Square (Post) (cm) 2.25 -Area of Debridement (cm) - Length 4.5 -Area of Debridement (cm) - Width 0.5 -Total Square (Area) (cm) 2.25 -Tunneling No -Undermining/Tunneling No -Circular Undermining No -Wound/Ulcer Outcome Not Healed -Ulcer Cleansing Rinsed/ Irrigated with Saline -Foul Odor after Cleansing No -Bioengineered Tissue Yes -Type of Bioengineered Tissue Epicord -Expiration Date 10/15/28 -Product Lot Number [id number] -Percent Used 100 -Lot number of Saline Used [id number] -Bleeding Controlled with Pressure -Treatment Response Procedure Tolerated Well -Offloading No -Debridement - Subq, 1st 20sq cm No -Apply Skin Sub - 1st 25 sq cm - Legs 1 -Epicord (per sq cm) 6 Pain Scale: 0-10 Numeric Is Patient Pain Free? Yes - Nurse 3 - General Ulcer D/C NN Start: 04/19/24 08:14 Freq: Status: Active Protocol: Activity Type Activity Date Activity User E-sign Co-sign Detail Recorded Client Recorded Date Recorded By Document 04/19/24 08:55 RB [id number] 04/19/24 08:55 RB 04/19/24 08:55 Wound Care Center Nurse 3 #1 LT MED LE -Primary Dressing Covered/Secured with Dry Gauze,Dry Gauze & Roll Gauze,Secured with Tape Left -Tubular Bandage Single Layer -Size of Tubigrip Used Size E -Size E ($) 1 Treatment Response Procedure Tolerated Well Pain Scale: 0-10 Numeric Is Patient Pain Free? Yes - Visit Discharge Discharge Condition Stable Ambulatory Status Ambulatory,Cane Transportation Private Auto Medication Reconcilliation completed & No provided to patient/care provider Clinical Summary of Care Provided Yes Assessment/Plan Assessment/Plan (1) Other specified peripheral vascular diseases: CODE(S): I73.89 - Other specified peripheral vascular diseases PLAN: Exam performed. Sutures aseptically removed. Full-thickness incision dehiscence noted to the left hallux partial first ray amputation site. Full-thickness dehiscence down to muscle to left leg incisional site. Left foot wound was debrided down to including level of subcutaneous tissue and left leg wound was debrided down to including level of muscle using combination of pickups 15 blade and 5 mm dermal dermal curette all nonviable tissue was removed. Hemostasis obtained with light compression. Local anesthesia was performed using 10 cc of 2% lidocaine plain. Pre and postdebridement measurements documented nursing notes. Patient tolerated procedure well. Will plan for Dakin's wet to dry dressings and dry sterile dressing as well as overlying Tubigrip every third day per home health care. Patient follow-up in 1 week. Patient can heel weight-bear in surgical shoe on left. Will plan for epi cord grafting (2) Non-pressure chronic ulcer of left ankle with necrosis of muscle: CODE(S): L97.323 - Non-pressure chronic ulcer of left ankle with necrosis of muscle (3) Non-pressure chronic ulcer of other part of left foot with fat layer exposed: CODE(S): L97.522 - Non-pressure chronic ulcer of other part of left foot with fat layer exposed
--- NOTE | 2024-04-20 09:25 | WC ---
PHOTO LEFT HALLUX 04/19/24
--- NOTE | 2024-04-20 09:27 | WC ---
PHOTO 04/19/24 LEFT CHASE ANDINO
[2024-04-26 08:18] VITALS: BP 141/76; PULSE 82; RESP 16; TEMP 36; BMI 20.2
--- NOTE | 2024-04-26 09:09 | PCM.WC.PN ---
History of Present Illness Date of Service: 04/26/24 Chief Complaint: Left foot ulceration and exposed bone. History of Wound: Patient has been dealing with a chronic wound for approximately 1 month Progress of Wound: Denies constitutional's. Status post angioplasty on Thursday04/15/[address] Braden. No other changes. Objective Data Objective Data Vital Signs: Vital Signs Temp Pulse Resp BP O2 Del Method 96.8 F L 82 16 141/76 H Room Air 04/26/24 08:18 04/26/24 08:18 04/26/24 08:18 04/26/24 08:18 04/19/24 08:14 Oxygen Delivery Method Room Air Weight: 69.4 kg Body Mass Index (BMI) 20.2 Physical Exam Narrative Neurovascular status unchanged from previous visit Left first ray amputation healed. Full-thickness incision down to level of subq dehiscence noted to the left leg incision. Pre and postdebridement measurements documented nursing notes. No acute signs of infection. Debridement Note Debridement Note Post-Debridement Measurements and Additional Note: Post-Debridement Measurements/Treatment - Nurse 1 - General Ulcer Assessment Start: 04/19/24 08:14 Freq: Status: Active Protocol: KEISHA.GLORIA Activity Type Activity Date Activity User E-sign Co-sign Detail Recorded Client Recorded Date Recorded By Document 04/19/24 08:14 KW [id number] 04/19/24 08:26 KW Document 04/26/24 08:18 JF [id number] 04/26/24 08:25 JF 04/19/24 04/26/24 08:14 08:18 - Today's Visit Information Type of service Follow-up Visit Follow-up Visit (Physician/CONFIGURATION MANAGEMENT ADMINISTRATOR (Physician/CONFIGURATION MANAGEMENT ADMINISTRATOR ) ) Arrival Mode Ambulatory,Cane Ambulatory,Cane Accompanied by Patient Identification Verified (Name & Yes Yes ) Patient Requires Transmission-Based No Precautions Height and Weight Body Mass Index (BMI) 20.2 20.2 BMI Classification Normal Normal Vital Signs Temperature (97.8 F-99.1 F) 96.6 F L 96.8 F L Temperature Source Temporal Temporal Pulse Rate (60-100) 74 82 Pulse Location Monitor Monitor Respiratory Rate (12-18) 16 16 Respiratory rate source Monitor Observation Oxygen Delivery Method Room Air Blood Pressure (90/60-120/80) 127/60 H 141/76 H Blood Pressure Mean (mm Hg) 82 97 Source Monitor Monitor Position Supine Semi-Fowlers Blood Pressure Location Right Arm Left Arm History Since Last Visit- (Skip if this is Patient's initial visit) Have you changed medications since your No No last visit? Any new allergies or adverse reactions No No Had a fall/change in ADL's that may No No increase risk of falls Signs or symptoms of abuse and/or No No neglect since last visit Have you been in the hospital since your No No last visit? Has dressing in place as prescribed Yes Yes Has compression in place as prescribed Yes Yes Has offloadiing in place as prescribed Yes N/A Experienced any changes in pain level or No No management Left Footwear Surgical Shoe Surgical Shoe with pressure with pressure relief insole relief insole Right Footwear Regular Shoe Regular Shoe Pain Scale: 0-10 Numeric Is Patient Pain Free? No Yes LLE -Description Aching -Alleviating Factors/Interventions Medication -Comments constant pain WC - Nurse 1 - General Ulcer Measurement Start: 04/19/24 08:14 Freq: Status: Active Protocol: Activity Type Activity Date Activity User E-sign Co-sign Detail Recorded Client Recorded Date Recorded By Document 04/19/24 08:14 KW [id number] 04/19/24 08:26 KW Document 04/26/24 08:18 JF [id number] 04/26/24 08:25 JF 04/19/24 04/26/24 08:14 08:18 Wound Center Nurse 1 #2 LT HALLUX -Current Size (cm) - Length 0.1 -Current Size (cm) - Width 0.1 -Current Size (cm) - Depth 0.1 -Total Square Cm 0.01 -Date of Last Picture (Recall this 04/19/24 field) -Exudate Amt Small -Exudate Type Serosanguineous -Wound Margin Distinct, Outline Attached -Granulation Amt Small (1-33%) -Granulation Quality [place] -Necrosis Amt Large (67-100%) -Necrotic Tissue Type Adherent Slough -Texture (Becca-wound Skin Appearance) Not Assessed -Moisture (Becca-wound Skin Appearance) Assessed -Color (Becca-wound Skin Appearance) Assessed -Temperature (Becca-wound Skin No Abnormality Appearance) (Pt Warm) -Tenderness on Palpation (Becca-wound No Skin Appearance) -Ulcer Cleansing Soap and Water -Anesthetic Used 5% Lidocaine Gel #1 LT MED LE -Combined with other wound No -Current Size (cm) - Length 5.8 4.0 -Current Size (cm) - Width 0.7 0.5 -Current Size (cm) - Depth 0.2 0.2 -Total Square Cm 4.06 2.00 -Date of Last Picture (Recall this 04/19/24 field) -Photo Taken No -Epithelialization Large 67-100% -Tunneling No -Circular Undermining No -Exudate Amt Small Small -Exudate Type Serosanguineous Serosanguineous -Wound Margin Flat & Intact -Granulation Amt Small (1-33%) Large (67-100%) -Granulation Quality [place] Pale -Slough/Fibrin Yes -Necrosis Amt Large (67-100%) Small (1-33%) -Necrotic Tissue Type Eschar Adherent Slough -Structure Exposed N/A -Texture (Becca-wound Skin Appearance) Assessed Assessed, Localized Edema -Moisture (Becca-wound Skin Appearance) Assessed No Abnormality, Dry/Scaly -Color (Becca-wound Skin Appearance) Assessed No Abnormality, Assessed -Temperature (Becca-wound Skin No Abnormality No Abnormality Appearance) (Pt Warm) (Pt Warm) -Tenderness on Palpation (Becca-wound No No Skin Appearance) -Ulcer Cleansing Soap and Water Soap and Water -Foul Odor after Cleansing No No -Anesthetic Used 5% Lidocaine 5% Lidocaine Gel Gel Lower Limb Edema Present Yes Left Calf (cm) 33 31.3 Left Ankle (cm) 21 20.0 WC - Nurse 2 - General Ulcer CM Notes Start: 04/19/24 08:14 Freq: Status: Active Protocol: Activity Type Activity Date Activity User E-sign Co-sign Detail Recorded Client Recorded Date Recorded By Document 04/19/24 08:34 [id number] 04/19/24 08:41 JF Document 04/26/24 08:53 [id number] 04/26/24 08:54 JF 04/19/24 04/26/24 08:34 08:53 Wound Center Nurse 2 #2 LT HALLUX -Time 08:34 -Correct Patient No -Correct Side, Site, Position No -Correct Procedure No -Procedure Performed No -Post Debridement (cm) - Length 0 -Post Debridement (cm) - Width 0 -Post Debridement (cm) - Depth 0 -Total Square (Post) (cm) 0 -Area of Debridement (cm) - Length 0 -Area of Debridement (cm) - Width 0 -Total Square (Area) (cm) 0 -Tunneling No -Undermining/Tunneling No -Circular Undermining No -Wound/Ulcer Outcome Healed- Epithelialized -Ulcer Cleansing Rinsed/ Irrigated with Saline -Foul Odor after Cleansing No -Bioengineered Tissue Yes -Type of Bioengineered Tissue Epicord #1 LT MED LE -Time 08:53 -Correct Patient Yes Yes -Correct Side, Site, Position Yes Yes -Correct Procedure Yes Yes -Procedure Performed Yes Yes -Type of Procedure Debridement Debridement -Clinical Debridement Subcutaneous Subcutaneous -Tissue Removed Subcutaneous Subcutaneous -Post Debridement (cm) - Length 4.5 4 -Post Debridement (cm) - Width 0.5 0.6 -Post Debridement (cm) - Depth 0.4 0.2 -Total Square (Post) (cm) 2.25 2.4 -Area of Debridement (cm) - Length 4.5 4 -Area of Debridement (cm) - Width 0.5 0.6 -Total Square (Area) (cm) 2.25 2.4 -Tunneling No No -Undermining/Tunneling No No -Circular Undermining No No -Wound/Ulcer Outcome Not Healed Not Healed -Ulcer Cleansing Rinsed/ Rinsed/ Irrigated with Irrigated with Saline Saline -Foul Odor after Cleansing No No -Bioengineered Tissue Yes Yes -Type of Bioengineered Tissue Epicord Epifix -Expiration Date 10/15/28 01/16/28 -Product Lot Number [id number] -Percent Used 100 100 -Lot number of Saline Used [id number] -Bleeding Controlled with Pressure Pressure -Treatment Response Procedure Procedure Tolerated Well Tolerated Well -Offloading No No -Debridement - Subq, 1st 20sq cm No No -Apply Skin Sub - 1st 25 sq cm - Legs 1 1 -Epicord (per sq cm) 6 -Epifix (per sq cm) 4 Pain Scale: 0-10 Numeric Is Patient Pain Free? Yes Yes WC - Nurse 3 - General Ulcer D/C NN Start: 04/19/24 08:14 Freq: Status: Active Protocol: Activity Type Activity Date Activity User E-sign Co-sign Detail Recorded Client Recorded Date Recorded By Document 04/19/24 08:55 RB [id number] 04/19/24 08:55 RB Document 04/26/24 08:58 KW [id number] 04/26/24 09:00 KW 04/19/24 04/26/24 08:55 08:58 Wound Care Center Nurse 3 #1 LT MED LE -Primary Dressing Applied Mepilex Border -Primary Dressing Covered/Secured with Dry Gauze,Dry Gauze & Roll Gauze,Secured with Tape -Mepilex Border 1 Left -Tubular Bandage Single Layer Single Layer -Size of Tubigrip Used Size E Size E -Size E ($) 1 1 Treatment Response Procedure Tolerated Well Pain Scale: 0-10 Numeric Is Patient Pain Free? Yes Yes WC - Visit Discharge Discharge Condition Stable Stable Ambulatory Status Ambulatory,Cane Ambulatory,Cane Transportation Private Auto Private Auto Medication Reconcilliation completed & No No provided to patient/care provider Clinical Summary of Care Provided Yes Yes Assessment/Plan Assessment/Plan (1) Other specified peripheral vascular diseases: CODE(S): I73.89 - Other specified peripheral vascular diseases PLAN: Exam performed. Sutures aseptically removed. Full-thickness incision dehiscence noted to the left hallux partial first ray amputation site. Full-thickness dehiscence down to muscle to left leg incisional site. Left legwound was debrided excisionally down to including level of subcutaneous tissue using a 5 mm dermal dermal curette all nonviable tissue was removed. Hemostasis obtained with light compression. Topical anesthesia used. Pre and postdebridement measurements documented nursing notes. Patient tolerated procedure well. Today left leg wound was dressed with a by [employer] EpiFix graft 2 x 2 cm. Entire graft used no waste. Graft was stabilized with overlying wound veil and Steri-Strips. Site was dressed with dry sterile dressing and Tubigrip for compression. Patient will change outer layer but not touch the underlying graft and follow-up in 1 week. 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
[2024-05-03 08:33] VITALS: BP 115/60; PULSE 67; RESP 18; TEMP 37; BMI 20.2
--- NOTE | 2024-05-03 11:55 | PCM.WC.PN ---
History of Present Illness Date of Service: 05/03/24 Chief Complaint: Left foot ulceration and exposed bone. History of Wound: Patient has been dealing with a chronic wound for approximately 1 month Progress of Wound: Denies constitutional's. Status post angioplasty on Thursday04/15/[address] Braden. No other changes. Objective Data Objective Data Vital Signs: Vital Signs Temp Pulse Resp BP O2 Del Method 98.6 F 67 18 115/60 Room Air 05/03/24 08:33 05/03/24 08:33 05/03/24 08:33 05/03/24 08:33 05/03/24 08:33 Oxygen Delivery Method Room Air Weight: 153 lb Body Mass Index (BMI) 20.2 Charges/Coding Procedures Integumentary 150xxx-152xx: 11995 Skin sub graft trnk/arm/leg (left medial leg ulcer) Multi Select Codes Integumentary Integumentary CPT Codes: 02440 Lorie subq tissue 20 sq cm/< (left first ray amputation ulcer) Physical Exam Narrative Left medial leg incision is healing well, it is almost healed and is measuring smaller this week. Left foot, first ray amputation site with soft scabbing that was removed. It is very moist. Will have them start to place Betadine to the area covered with gauze to help dry it up. Debridement Note Debridement Note Wound debrided: Medial leg ulcer Laterality: Left Type of Debridement: Excisional debridement Anesthesia Used: 5% Lidocaine Gel Depth: Down to and including healthy tissue and in the subcutaneous layer Percentage of wound debrided: 100 Instrument Used: 3mm curette Tissue Removed: Non viable tissue and slough Severity: Fat Layer Exposed Amount of bleeding with debridement: Mild Bleeding Controlled with: Pressure and Compression and gauze Patient tolerated procedure: Patient tolerated procedure well Post-Debridement Measurements and Additional Note: Post-Debridement Measurements/Treatment KEISHA - Nurse 1 - General Ulcer Assessment Start: 04/19/24 08:14 Freq: Status: Active Protocol: LUIS Activity Type Activity Date Activity User E-sign Co-sign Detail Recorded Client Recorded Date Recorded By Document 04/19/24 08:14 KW [id number] 04/19/24 08:26 KW Document 04/26/24 08:18 JF [id number] 04/26/24 08:25 JF Document 05/03/24 08:33 KW [id number] 05/03/24 08:37 KW 04/19/24 04/26/24 05/03/24 08:14 08:18 08:33 WC - Today's Visit Information Type of service Follow-up Visit Follow-up Visit Follow-up Visit (Physician/OCCUPATIONAL HEALTH PHYSIOTHERAPIST (Physician/OCCUPATIONAL HEALTH PHYSIOTHERAPIST (Physician/OCCUPATIONAL HEALTH PHYSIOTHERAPIST ) ) ) Arrival Mode Ambulatory,Cane Ambulatory,Cane Ambulatory,Cane Accompanied by Patient Identification Verified (Name & Yes Yes Yes ) Patient Requires Transmission-Based No Precautions Height and Weight Body Mass Index (BMI) 20.2 20.2 20.2 BMI Classification Normal Normal Normal Vital Signs Temperature (97.8 F-99.1 F) 96.6 F L 96.8 F L 98.6 F Temperature Source Temporal Temporal Temporal Pulse Rate (60-100) 74 82 67 Pulse Location Monitor Monitor Monitor Respiratory Rate (12-18) 16 16 18 Respiratory rate source Monitor Observation Observation Oxygen Delivery Method Room Air Room Air Blood Pressure (90/60-120/80) 127/60 H 141/76 H 115/60 Blood Pressure Mean (mm Hg) 82 97 78 Source Monitor Monitor Monitor Position Supine Semi-Fowlers Semi-Fowlers Blood Pressure Location Right Arm Left Arm Left Arm History Since Last Visit- (Skip if this is Patient's initial visit) Have you changed medications since your No No No last visit? Any new allergies or adverse reactions No No No Had a fall/change in ADL's that may No No No increase risk of falls Signs or symptoms of abuse and/or No No No neglect since last visit Have you been in the hospital since your No No No last visit? Has dressing in place as prescribed Yes Yes Yes Has compression in place as prescribed Yes Yes Yes Has offloadiing in place as prescribed Yes N/A Yes Experienced any changes in pain level or No No No management Left Footwear Surgical Shoe Surgical Shoe Surgical Shoe with pressure with pressure with pressure relief insole relief insole relief insole Right Footwear Regular Shoe Regular Shoe Regular Shoe Pain Scale: 0-10 Numeric Is Patient Pain Free? No Yes Yes LLE -Description Aching -Alleviating Factors/Interventions Medication -Comments constant pain WC - Nurse 1 - General Ulcer Measurement Start: 04/19/24 08:14 Freq: Status: Active Protocol: Activity Type Activity Date Activity User E-sign Co-sign Detail Recorded Client Recorded Date Recorded By Document 04/19/24 08:14 KW [id number] 04/19/24 08:26 KW Document 04/26/24 08:18 JF [id number] 04/26/24 08:25 JF Document 05/03/24 08:33 KW [id number] 05/03/24 08:37 KW 04/19/24 04/26/24 05/03/24 08:14 08:18 08:33 Wound Center Nurse 1 #2 LT HALLUX -Current Size (cm) - Length 0.1 -Current Size (cm) - Width 0.1 -Current Size (cm) - Depth 0.1 -Total Square Cm 0.01 -Date of Last Picture (Recall this 04/19/24 field) -Exudate Amt Small -Exudate Type Serosanguineous -Wound Margin Distinct, Outline Attached -Granulation Amt Small (1-33%) -Granulation Quality [place] -Necrosis Amt Large (67-100%) -Necrotic Tissue Type Adherent Slough -Texture (Becca-wound Skin Appearance) Not Assessed -Moisture (Becca-wound Skin Appearance) Assessed -Color (Becca-wound Skin Appearance) Assessed -Temperature (Becca-wound Skin No Abnormality Appearance) (Pt Warm) -Tenderness on Palpation (Becca-wound No Skin Appearance) -Ulcer Cleansing Soap and Water -Anesthetic Used 5% Lidocaine Gel #1 LT MED LE -Combined with other wound No -Current Size (cm) - Length 5.8 4.0 3.4 -Current Size (cm) - Width 0.7 0.5 0.2 -Current Size (cm) - Depth 0.2 0.2 0.1 -Total Square Cm 4.06 2.00 0.68 -Date of Last Picture (Recall this 04/19/24 05/03/24 field) -Photo Taken No -Epithelialization Large 67-100% -Tunneling No -Circular Undermining No -Exudate Amt Small Small Small -Exudate Type Serosanguineous Serosanguineous Serosanguineous -Wound Margin Flat & Intact Distinct, Outline Attached -Granulation Amt Small (1-33%) Large (67-100%) -Granulation Quality [place] Pale -Slough/Fibrin Yes -Necrosis Amt Large (67-100%) Small (1-33%) -Necrotic Tissue Type Eschar Adherent Slough -Structure Exposed N/A -Texture (Becca-wound Skin Appearance) Assessed Assessed, Assessed Localized Edema -Moisture (Becca-wound Skin Appearance) Assessed No Abnormality, Assessed Dry/Scaly -Color (Becca-wound Skin Appearance) Assessed No Abnormality, Assessed Assessed -Temperature (Becca-wound Skin No Abnormality No Abnormality No Abnormality Appearance) (Pt Warm) (Pt Warm) (Pt Warm) -Tenderness on Palpation (Becca-wound No No No Skin Appearance) -Ulcer Cleansing Soap and Water Soap and Water Soap and Water -Foul Odor after Cleansing No No No -Anesthetic Used 5% Lidocaine 5% Lidocaine 5% Lidocaine Gel Gel Gel Lower Limb Edema Present Yes Left Calf (cm) 33 31.3 33 Left Ankle (cm) 21 20.0 21 WC - Nurse 2 - General Ulcer CM Notes Start: 04/19/24 08:14 Freq: Status: Active Protocol: Activity Type Activity Date Activity User E-sign Co-sign Detail Recorded Client Recorded Date Recorded By Document 04/19/24 08:34 [id number] 04/19/24 08:41 JF Document 04/26/24 08:53 JF [id number] 04/26/24 08:54 JF Document 05/03/24 08:52 [id number] 05/03/24 08:58 JF Edit Result 05/03/24 08:52 JF (1) [id number] 05/03/24 09:03 JF (1) #2 LT HALLUX - Time => 09:02 - Correct Patient => Yes - Correct Side, Site, Position => Yes - Correct Procedure => Yes - Procedure Performed => Yes - Type of Procedure => Debridement - Clinical Debridement => Subcutaneous - Tissue Removed => Subcutaneous - Post Debridement (cm) - Length => 1.0 - Post Debridement (cm) - Width => 0.6 - Post Debridement (cm) - Depth => 0.3 - Total Square (Post) (cm) => 0.60 - Area of Debridement (cm) - Length => 1.0 - Area of Debridement (cm) - Width => 0.6 - Total Square (Area) (cm) => 0.60 - Tunneling => No - Undermining/Tunneling => No - Circular Undermining => No - Wound/Ulcer Outcome => Not Healed - Ulcer Cleansing => Rinsed/Irrigated => with Saline - Foul Odor after Cleansing => No - Bioengineered Tissue => No - Bleeding Controlled with => Pressure - Treatment Response => Procedure => Tolerated Well - Offloading => No - Debridement - Subq, 20sq cm => Yes 04/19/24 04/26/24 05/03/24 08:34 08:53 08:52 Wound Center Nurse 2 #2 HALLUX -Time 08:34 09:02 -Correct Patient No Yes -Correct Side, Site, Position No Yes -Correct Procedure No Yes -Procedure Performed No Yes -Type of Procedure Debridement -Clinical Debridement Subcutaneous -Tissue Removed Subcutaneous -Post Debridement (cm) - Length 0 1.0 -Post Debridement (cm) - Width 0 0.6 -Post Debridement (cm) - Depth 0 0.3 -Total Square (Post) (cm) 0 0.60 -Area of Debridement (cm) - Length 0 1.0 -Area of Debridement (cm) - Width 0 0.6 -Total Square (Area) (cm) 0 0.60 -Tunneling No No -Undermining/Tunneling No No -Circular Undermining No No -Wound/Ulcer Outcome Healed- Not Healed Epithelialized -Ulcer Cleansing Rinsed/ Rinsed/ Irrigated with Irrigated with Saline Saline -Foul Odor after Cleansing No No -Bioengineered Tissue Yes No -Type of Bioengineered Tissue Epicord -Bleeding Controlled with Pressure -Treatment Response Procedure Tolerated Well -Offloading No -Debridement - Subq, 20sq cm Yes #1 LT MED LE -Time 08:53 08:52 -Correct Patient Yes Yes Yes -Correct Side, Site, Position Yes Yes Yes -Correct Procedure Yes Yes Yes -Procedure Performed Yes Yes Yes -Type of Procedure Debridement Debridement Debridement -Clinical Debridement Subcutaneous Subcutaneous Subcutaneous -Tissue Removed Subcutaneous Subcutaneous Subcutaneous -Post Debridement (cm) - Length 4.5 4 2.0 -Post Debridement (cm) - Width 0.5 0.6 0.3 -Post Debridement (cm) - Depth 0.4 0.2 0.1 -Total Square (Post) (cm) 2.25 2.4 0.60 -Area of Debridement (cm) - Length 4.5 4 2.0 -Area of Debridement (cm) - Width 0.5 0.6 0.3 -Total Square (Area) (cm) 2.25 2.4 0.60 -Tunneling No No No -Undermining/Tunneling No No No -Circular Undermining No No No -Wound/Ulcer Outcome Not Healed Not Healed Not Healed -Ulcer Cleansing Rinsed/ Rinsed/ Rinsed/ Irrigated with Irrigated with Irrigated with Saline Saline Saline -Foul Odor after Cleansing No No No -Bioengineered Tissue Yes Yes Yes -Type of Bioengineered Tissue Epicord Epifix Epifix 18mm Disc -Expiration Date 10/15/28 01/16/28 11/15/28 -Product Lot Number [id number] -Percent Used 100 100 100 -Lot number of Saline Used [id number] -Bleeding Controlled with Pressure Pressure Pressure -Treatment Response Procedure Procedure Procedure Tolerated Well Tolerated Well Tolerated Well -Offloading No No No -Debridement - Subq, 1st 20sq cm No No No -Apply Skin Sub - 1st 25 sq cm - Legs 1 1 1 -Epicord (per sq cm) 6 -Epifix (per sq cm) 4 -Epifix 18mm Disc 3 Pain Scale: 0-10 Numeric Is Patient Pain Free? Yes Yes Yes WC - Nurse 3 - General Ulcer D/C NN Start: 04/19/24 08:14 Freq: Status: Active Protocol: Activity Type Activity Date Activity User E-sign Co-sign Detail Recorded Client Recorded Date Recorded By Document 04/19/24 08:55 RB [id number] 04/19/24 08:55 RB Document 04/26/24 08:58 KW [id number] 04/26/24 09:00 KW Document 05/03/24 09:14 KW [id number] 05/03/24 09:14 KW 04/19/24 04/26/24 05/03/24 08:55 08:58 09:14 Wound Care Center Nurse 3 #2 LT HALLUX -Other Dressing betadine -Primary Dressing Covered/Secured with Dry Gauze, Secured with Tape #1 LT MED LE -Primary Dressing Applied Mepilex Border Mepilex Border -Primary Dressing Covered/Secured with Dry Gauze,Dry Gauze & Roll Gauze,Secured with Tape -Mepilex Border 1 1 Left -Tubular Bandage Single Layer Single Layer Single Layer -Size of Tubigrip Used Size E Size E Size D -Size D ($) 1 -Size E ($) 1 1 Treatment Response Procedure Tolerated Well Pain Scale: 0-10 Numeric Is Patient Pain Free? Yes Yes Yes WC - Visit Discharge Discharge Condition Stable Stable Ambulatory Status Ambulatory,Cane Ambulatory,Cane Transportation Private Auto Private Auto Medication Reconcilliation completed & No No provided to patient/care provider Clinical Summary of Care Provided Yes Yes Additional Wound Wound debrided: first ray amputation ulcer Laterality: Left Type of Debridement: Excisional debridement Anesthesia Used: 5% Lidocaine Gel Depth: Down to and including healthy tissue and in the subcutaneous layer Percentage of wound debrided: 100 Instrument Used: 3mm curette Tissue Removed: Non viable tissue and slough Severity: Fat Layer Exposed Amount of bleeding with debridement: Mild Bleeding Controlled with: Compression and gauze Patient tolerated procedure: Patient tolerated procedure well Assessment/Plan Assessment/Plan (1) Other specified peripheral vascular diseases: CODE(S): I73.89 - Other specified peripheral vascular diseases PLAN: Courtesy visit for Dr. Garcia. Exam performed. Today left leg wound was dressed with a by [employer] EpiFix graft 18 mm. 100% graft was used, with no waste. Wound veil and Steri-Strips covered wound. Hydrogel placed to help prevent graft from drying out. Site was dressed with dry sterile dressing and Tubigrip for compression. Patient will change outer layer but not touch the underlying graft . 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 He will place Betadine and cover with gauze daily. Follow up one week with Dr. Garcia. 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
--- NOTE | 2024-05-04 08:22 | WC ---
PHOTO 05/03/24 LEFT MEDIAL LEG
[2024-05-10 08:21] VITALS: BP 115/56; PULSE 72; RESP 18; TEMP 35.9; BMI 20.2
--- NOTE | 2024-05-10 09:40 | PCM.WC.PN ---
History of Present Illness Date of Service: 05/10/24 Chief Complaint: Left foot ulceration and exposed bone. History of Wound: Patient has been dealing with a chronic wound for approximately 1 month Progress of Wound: Significant improvement of wounds. Denies constitutional symptoms. No other changes noted today. Objective Data Objective Data Vital Signs: Vital Signs Temp Pulse Resp BP O2 Del Method 96.7 F L 72 18 115/56 L Room Air 05/10/24 08:21 05/10/24 08:21 05/10/24 08:21 05/10/24 08:21 05/03/24 08:33 Oxygen Delivery Method Room Air Weight: 69.4 kg Body Mass Index (BMI) 20.2 Physical Exam Narrative Neurovascular status unchanged from previous visit Left medial leg wound healed. Left first ray amputation site healed. Assessment/Plan Assessment/Plan (1) Other specified peripheral vascular diseases: CODE(S): I73.89 - Other specified peripheral vascular diseases PLAN: Exam performed. All wounds left leg healed. Follow-up in my outpatient clinic for fitting for left side toe filler Continue following up in my wound care clinic for at risk foot checks. 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
== END 2024-05-10 09:33 | disposition home or self-care (01) ==
LOC: WC 08:15
PROVIDERS: PCP Nurse Practitioner Family; Referring Provider Podiatrist Foot & Ankle Surgery; Visit Provider Podiatrist
DX: T81.31XA Disruption of external operation (surgical) wound, not elsewhere classified, initial encounter (principal); L97.322 Non-pressure chronic ulcer of left ankle with fat layer exposed; L97.522 Non-pressure chronic ulcer of other part of left foot with fat layer exposed; I73.89 Other specified peripheral vascular diseases; Y83.8 Other surgical procedures as the cause of abnormal reaction of the patient, or of later complication, without mention of misadventure at the time of the procedure; Z98.62 Peripheral vascular angioplasty status
CPT/HCPCS: 11042; 15271; 99213; Q4186; Q4187; G0463